=== PATIENT | female | born 1960 | race Caucasian/White ===

== ENCOUNTER 2018-08-14 08:45 | Emergency (ER) | payer MEDICARE ==
[~2018-08-14] VITALS: Ht 170.2 cm; Wt 62.6 kg
[~2018-08-14 08:45] MED LIST: COZAAR50 MG PO; GILENYA0.5 MG PO; IMITREX; PENTAZOCINE-NA1 EACH PO; Z NUVIGIL; Z.0.ABILIFY2 MG PO; Z.0.ADDERALL 10 MG10 PO; Z.0.ADDERALL 20 MG20 PO; Z.0.BENTYL20 MG PO; Z.0.CELEBREX200 MG PO; Z.0.CYMBALTA30 MG PO; Z.0.CYMBALTA60 MG PO; Z.0.DEXILANT60 MG; Z.0.TOPROL XL50 MG PO; Z.0.VALIUM10 MG PO; Z.0.VALTREX1000 MG PO; [UNRECOGNIZED DRUG - OTHER]; [UNRECOGNIZED DRUG - OTHER]; talwin
--- OUTSIDE RECORDS SUMMARY | 2018-08-14 08:50 | XMS REPORT | Continuity of Care Document ---
Author Author Pb nguyenann Organization Interface Address Unknown Phone Unavailable Problems Problem Status Onset Date Classification Date Reported Comments Source M54.5 - LOW BACK PAIN M81.0 - AGE-RELATE Active 12/31/2017 RIP Georges DX: [id number] SCLEROSIS Active 03/08/2017 [place] R07.89 - OTHER CHEST PAIN Active 09/20/2016 [facility] Disseminated sclerosis<sup>2</sup> Resolved 08/29/2016 Problem 03/21/2018 Data migrated from [employer] on 10/03/15. 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 There is no interval worsening since I last saw her.--S he is on Gilenya and is now JCV- Originally documented as Multiple sclerosis. Juanpablo Farnsworth Low back pain<sup>3, 4</sup> Active 08/29/2016 Problem 03/21/2018 Data migrated from [employer] on 10/03/15. Refractory back pain on PM via Dr. Fraga. She is on chronic opiods and previously was treated with ESIs. She is offered a SCS but the MRI restrictions could be a major problem. I discussed this with Dr. Fraga. --Her anorexia has resolved off of HM on MS instead. Originally documented as Lumbar back pain. Juanpablo Farnsworth Neuro Migraine<sup>6</sup> Resolved 08/29/2016 Problem 03/21/2018 Data migrated from [employer] on 10/03/15. Reduced now. Originally documented as Chronic migraine. Juanpablo Farnsworth Disseminated sclerosis<sup>2</sup> Resolved 08/29/2016 Problem 02/02/2018 Data migrated from [employer] on 10/03/15. 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 There is no interval worsening since I last saw her.--S he is on Gilenya and is now JCV- Originally documented as Multiple sclerosis. DONTA Navarrete Low back pain<sup>3, 4</sup> Active 08/29/2016 Problem 02/02/2018 Data migrated from [employer] on 10/03/15. Refractory back pain on PM via Dr. Fraga. She is on chronic opiods and previously was treated with ESIs. She is offered a SCS but the MRI restrictions could be a major problem. I discussed this with Dr. Fraga. --Her anorexia has resolved off of HM on MS instead. Originally documented as Lumbar back pain. DONTA Navarretea Migraine<sup>6</sup> Resolved 08/29/2016 Problem 02/02/2018 Data migrated from [employer] on 10/03/15. Reduced now. Originally documented as Chronic migraine. DONTA Navarrete G35 - MULTIPLE SCLEROSIS Active 06/07/2016 DONTA Garzaadena Medication overuse headache<sup>5</sup> Resolved 11/30/2015 Problem 03/21/2018 Data migrated from [employer] on 10/03/15. The frequent use of imitrex inj. has likely led to overuse headache again. Originally documented as Medication overuse headache. DONTA BIGGSSandeep WilmaLatahanh Neuro Status migrainosus<sup>8, 9</sup> Resolved 11/30/2015 Problem 03/21/2018 Data migrated from [employer] on 10/03/15. Originally documented as Status migrainosus. RIP Bernals[place]ore[place]han[place] Neuro Medication overuse headache<sup>5</sup> Resolved 11/30/2015 Problem 02/02/2018 Data migrated from [employer] on 10/03/15. The frequent use of imitrex inj. has likely led to overuse headache again. Originally documented as Medication overuse headache. DONTA Navarreteadena Status migrainosus<sup>8, 9</sup> Resolved 11/30/2015 Problem 02/02/2018 Data migrated from [employer] on 10/03/15. Originally documented as Status migrainosus. DONTA Navarreteadena Backache<sup>1</sup> Resolved 08/31/2015 Problem 03/21/2018 Data migrated from [employer] on 10/03/15. Refractory back pain on PM via Dr. Fraga. She is on chronic opiods and previously was treated with ESIs. She is offered a SCS but the MRI restrictions could be a major problem. I discussed this with Dr. Fraga. --Overall on the current regimen, she is much improved. Her switch from HM to MS has resolved the anorexia. Originally documented as Low back pain. Juanpablo Farnsworth Neuro Backache<sup>1</sup> Resolved 08/31/2015 Problem 02/02/2018 Data migrated from [employer] on 10/03/15. Refractory back pain on PM via Dr. Fraga. She is on chronic opiods and previously was treated with ESIs. She is offered a SCS but the MRI restrictions could be a major problem. I discussed this with Dr. Fraga. --Overall on the current regimen, she is much improved. Her switch from HM to MS has resolved the anorexia. Originally documented as Low back pain. OPID [place], OPID [place] 789.06; ABD PAIN EPIGASTRIC 787.01; NAUS Active 03/14/2015 [place] Autoimmune hepatitis Resolved 03/16/2014 Problem 03/21/2018 KALYAND Wilma,[facility] Autoimmune hepatitis Resolved 03/16/2014 Problem 02/02/2018 RIP Dillon, [facility] [place] Bursitis of left hip [facility]2018 [facility] [place] Ulcerative colitis Resolved Problem 03/21/2018 [facility] Esophageal reflux Resolved Problem 03/21/2018 [facility] Herpes Resolved Problem 03/21/2018 [facility] Asthma Resolved Problem 03/21/2018 [facility] Neurocognitive deficits Active Problem 03/21/2018 [facility] Depression Resolved Problem 03/21/2018 [facility] Osteoporosis Resolved Problem 03/21/2018 [facility] Pneumonia<sup>7</sup> Resolved Problem 03/21/201809/2016 [facility] Sciatica Resolved Problem 03/21/2018 [facility] Encounter for competency evaluation Active Problem 03/21/2018 [facility] Ulcerative colitis Resolved Problem 02/02/2018 OPID Wilma, [facility] [place] Esophageal reflux Resolved Problem 02/02/2018 OPID M[place], [facility] [place] Herpes Resolved Problem 02/02/2018 OPID [place], [facility] [place] Asthma Resolved Problem 02/02/2018 OPID Mascotte, [facility] [place] Neurocognitive deficits Active Problem 02/02/2018 OPID [place], [facility] [place] Depression Resolved Problem 02/02/2018 OPID [place], [facility] [place] Osteoporosis Resolved Problem 02/02/2018 OPID Mascotte, [facility] [place] Pneumonia<sup>7</sup> Resolved Problem 02/02/201809/2016 OPID [place], [facility] [place] Sciatica Resolved Problem 02/02/2018 KALYAND [place], [facility] [place] Encounter for competency evaluation Active Problem 02/02/2018 KALYAND [place], [facility] [place] Medication overuse headache Active Problem 09/26/2016 Surya Ismael Lumbar back pain Active Problem 09/26/2016 Surya Ismael Status migrainosus Active Problem 09/26/2016 Surya [place] Lumbar back pain Active Problem 09/26/2016 Surya [place] Status migrainosus Active Problem 09/26/2016 Surya Ismael Multiple sclerosis Active Problem 09/26/2016 Surya [place] Chronic migraine Active Problem 09/26/2016 Surya Ismael ABDMNAL PAIN EPIGASTRIC Active [facility] NAUSEA WITH VOMITING Active [facility] ELEV TRANSAMINASE/LDH Active [facility] IRRITABLE BOWEL SYNDROME Active [facility] ABNORMAL LOSS OF WEIGHT Active [facility] DIAPHRAGMATIC HERNIA Active [facility] UNIVRSL ULCERTVE COLITIS Active [facility] Medications Medication Details Route Status Patient Instructions Ordering Provider Order Date Source valacyclovir 1000 MG Oral Tablet [Valtrex] 1 gm=1 tab, PO, Q24H, X 30 day, # 30 tab, 3 Refill(s), Pharmacy: [facility] [id number] Active 11/20/2017 Juanpablo Neuro 0.5 ML Sumatriptan 12 MG/ML Prefilled Syringe [Imitrex] See Instructions, INJECT 0.5ML DIRECTED, # 27 mL, 1 Refill(s), Pharmacy: [facility] [id number] Active 11/20/2017 [facility] 0.5 ML Sumatriptan 12 MG/ML Prefilled Syringe [Imitrex] See Instructions, # 27 mL, INJECT 0.5ML DIRECTED, Pharmacy: [facility] [id number] Inactive 11/20/2017 [facility] 10 ML ocrelizumab 30 MG/ML Injection [Ocrevus] 600 mg, IV, q6mo, # 2 inj, 0 Refill(s), other Active 10/16/2017 [facility] duloxetine 60 MG Enteric Coated Capsule [Cymbalta] 180 mg=3 cap, PO, Daily, 0 Refill(s) Active 10/16/2017 [facility] valacyclovir 1000 MG Oral Tablet [Valtrex] 1 gm=1 tab, PO, Q24H, X 30 day, # 30 tab, 1 Refill(s), Pharmacy: [facility] [id number] No Longer Active 10/02/2017 [facility] Cymbalta PO, Daily, 180mg, 0 Refill(s) Active 08/29/2017 [facility] Reclast Unknown Intravenous Active 5 MG/100ML Intravenous Once a year for osteoporosis [place] 08/28/2016 Surya Ismael Valacyclovir HCl 1 tablet Orally Active 1 GM Orally every 24 hrs [place] 07/15/2016 Surya Ismael Medrol (Sonu) as directed Orally Active 4 mg Orally as directed Ismael 11/30/2015 Surya [place] Spiriva HandiHaler 1 capsule Inhalation Active 18 MCG Inhalation Once a day [place] Surya [place] Adderall XR 1 capsule in the morning Orally Active 30 MG Orally Once a day [place] Surya [place] Morphine Sulfate 2 tablets Orally Active 15 MG Orally twice a day (bid) [place] Surya Ismael Valium 1 tablet as needed Orally Active 5 MG Orally [place] Surya Ismael Gilenya 1 capsule Orally Active 0.5 MG Orally Once a day [place] Surya Ismael Tizanidine HCl 1 tablet Orally Active 2 MG Orally once every night [place] Surya Ismael Imitrex as directed Injection Active 6 MG/0.5ML Injection as needed for headache [place] Surya [place] Testosterone inject Intramuscular Active 100 MG/ML Intramuscular Once every 3 months [place] Surya [place] Linzess 1 capsule Orally Active 290 MCG Orally Once a day Ismael Surya Ismael Dexilant 1 capsule Orally Active 60 MG Orally Twice a day Ismael Surya Ismael Abilify 1 tablet Orally Active 5 MG Orally Once a day [place] Surya [place] Meclizine HCl 1 tablet as needed Orally Active 25 MG Orally as needed (prn) Ismael Surya [place] Asacol HD 2 tablets Orally Active 800 MG Orally Three times a day [place] Surya [place] Cyanocobalamin 1 ml Injection Active 1000 MCG/ML Injection Ismael Surya [place] Dicyclomine HCl 1 tablet Orally Active 20 MG Orally Three times a day [place] Surya Ismael Cymbalta 3 tablets Orally Active 60 MG Orally Once a day Ismael Surya [place] Zofran 1 tablet Orally Active 8 MG Orally As needed Ismael Surya [place] Valacyclovir HCl 1 tablet Orally Active 1 Orally Once a day [place] Surya Ismael Tramadol HCl 1 tablet as needed Orally No Longer Active 50 MG Orally every 4 hrs Ismael Surya Ismael Hydromorphone HCl 1 tablet as needed Orally Active 2 MG Orally every 6 hrs [place] Surya Ismael Sumatriptan Succinate USE DIRECTED NEEDED FOR HEADACHE NA Active 6 Ismael Surya Ismael Testosterone inject Intramuscular Active 100 MG/ML Intramuscular Once every 3 months Ismael Surya [place] Sumatriptan Succinate USE DIRECTED NEEDED FOR HEADACHE NA Active 6 [place] Surya Ismael Fetzima 1 capsule Orally Active 120 MG Orally Once a day [place] Surya [place] Asacol HD 3 tablets Orally Active 800 MG Orally Twice a day Ismael Surya [place] Vitamin D 1 tablet Orally Active 1000 UNIT Orally Once a day [place] Surya Ismael Calcium 1 tablet Orally Active Orally Once a day [place] Surya Ismael Probiotic 1 capsule Orally Active Orally Once a day [place] Surya [place] Valacyclovir HCl Take 1 tablet by mouth every day NA Active 1 GM Ismael Surya Ismael Allergies, Adverse Reactions, Alerts Substance Category Reaction Severity Reaction type Status Date Reported Comments Source codeine<sup>1</sup> Assertion Drug allergy Active 03/24/2013 Data migrated from [employer] on 10/01/16. Originally documented as Codeine Phosphate. RIP [place] Codeine Phosphate Adverse Reaction Info Not Available Adverse Reaction Active 08/29/2016 Surya Ismael Demerol Adverse Reaction Info Not Available Adverse Reaction Active 08/29/2016 Surya Guevara meperidine<sup>2</sup> Assertion Drug allergy Active 08/29/2016 Data migrated from [employer] on 10/01/16. Originally documented as Demerol. DONTA OPISandeep [place] Immunizations Immunization Date Given Site Status Last Updated Comments Source Results Order Name Results Value Reference Range Date Interpretation Comments Source Spine lumbar w/wo contrast MRI Spine lumbar w/wo contrast MRI LUMBAR SPINE MRI WITH AND WITHOUT CONTRAST. Indication:57 years Female M54.5 Low back pain, - M54.5 Low back pain, TECHNIQUE: Sagittal T1, sagittal T2, sagittal STIR and axial T1/T2 images without contrast were obtained. Postcontrast sagittal T1 and axial T1 images were obtained after the administration of 10 cc of Dotarem. Comparison: Plain films 08/21/2017 FINDINGS: From T11-T12 through L4-L5 there are intervertebral disc herniations (Schmorl's nodes) without surrounding T2 hyperintensity. L2-L3 and L3-L4 mild type I (fibrovascular or edematous) endplate changes are noted, without additional signs of infection. The vertebrae are otherwise normal in shape, signal intensity and alignment. The intervertebral disks are diffusely desiccated. The conus medullaris terminates normally at the T12-L1 level. There is no intradural mass lesion. No abnormal epidural or nerve root enhancement seen. Infrarenal abdominal aortic aneurysm measures up to 2.9 cm with the normal infrarenal aortic diameter of 1.6 cm. T12-L1: There is preservation of the disc height, with no bulging, additional herniation, spinal stenosis, or neural foraminal stenosis. L1-L2: Disc height preserved. 2 mm disc bulge asymmetric to the left with mild facet hypertrophy resulting in mild left neural foraminal narrowing. No additional focal disc herniation or significant canal stenosis. L2-L3: There is preservation of the disc height, with no bulging, additional herniation, spinal stenosis, or neural foraminal stenosis. L3-L4: Disc height preserved. 2 mm disc bulge asymmetric to the left with mild facet hypertrophy and ligamentum flavum thickening. No focal disc herniation or significant canal/neural foraminal narrowing. L4-L5: Mild disc height loss. Wide-based subligamentous disc extrusion measuring 7 mm anterior posteriorly and extending 4 mm below the level the disc with superimposed moderate disc bulge and mild facet hypertrophy. This results in [id number] right greater than left neural foraminal narrowing with minimal deformity of the right greater than left L4 nerve roots. Mild lateral recess narrowing bilaterally with minimal displacement of the descending L5 nerve roots. No significant canal stenosis or associated annular tearing. L5-S1: There is preservation of the disc height, with no bulging, herniation, spinal stenosis, or neural foraminal stenosis. IMPRESSION: 1. A 7 mm wide based disc extrusion at L4-L5. Stenoses greatest at L4-L5 including slight deformity of right greater than left L4 foraminal nerve roots and minimal displacement of the descending L5 bilateral nerve roots. 2. Infrarenal abdominal aortic aneurysm measuring up to 2.9 cm. Recommendations for f/u of AAA (abdominal aortic aneurysm) based on AAA size: a. 2.6-2.9 cm: Follow up every 5 years. 1. J Vasc Surg. 2008;50(4 Suppl):S2-49 2. For aortas with maximum diameter of 2.6-2.9 cm meeting the criteria for AAA (>50% of proximal normal segment) 01/30/2018 - - Read by: Ricci Waldron MD Dictated Date/time: 01/30/18 17:45 Electronically Signed by: Ricci Waldron MD 01/30/18 17:56 FINAL REPORT RIP Georges Hip wo contrast MRI Hip wo contrast MRI EXAMINATION: MRI of the left hip without contrast HISTORY: M25.552 Pain in left hip; left hip pain and bursitis; left-sided lumbar radiculopathy; left hip labral tear; lumbar spondylosis; right greater trochanteric bursitis COMPARISON: Radiographs dated 08/21/2017 are reviewed. TECHNIQUE: Multiplanar, multisequence magnetic resonance imaging of the pelvis and left hip was performed with a local coil without contrast. FINDINGS: Left Hip: --Labrum: There is a tear involving the anterosuperior left hip labrum near the 2 o'clock position (series 7, image 18 and series 5, image 15). There is a small cyst adjacent to the anterior aspect of the superolateral left hip labrum which extends superiorly along the lateral margin of the labrum measuring 1.8 x 1.6 x 0.7 cm in craniocaudal, anteroposterior, and mediolateral dimensions respectiv gurwinder (series 7, images 14 through 15 and series 5, images 17 through 20). There is no definite tear of the underlying superolateral labrum identified. The remainder of the left hip labrum is intact. (Anterior labrum is 3 o'clock position by convention). --Cartilage and Bone: There is no chondral defect or subchondral marrow edema along the left femoral head or acetabulum. --Ligaments: The left ligamentum teres is intact. The left hip capsular ligaments are intact. Bone: There is no acute fracture. There is no evidence of avascular necrosis of either hip. The symphysis pubis and sacroiliac joints are normal. Muscles and Tendons: There is mild right common hamstring origin tendinosis. The left common hamstring tendon origin is normal. The tendinous attachments of the left hip are intact and normal. The left hip muscles are normal. Soft Tissues: There is mild right greater trochanteric bursitis. There is no left-sided greater trochanteric bursitis identified. The left sciatic nerve is normal. Contralateral Right Hip: Limited evaluation of the contralateral right hip on large [id number] imaging demonstrates no gross intra-articular abnormality. Other: The uterus is surgically absent. Visualized portions of the pelvis and lower abdomen are otherwise unremarkable. Visualized portions of the lower lumbar spine demonstrate L4-5 degenerative disc disease with intervertebral disc space narrowing, better characterized on dedicated lumbar spine MR dated same day. IMPRESSION: 1. Tear involving the anterosuperior left hip labrum near the 2 o'clock position. 2. Small cyst adjacent to the anterior aspect of the superolateral left hip labrum which extends superiorly along the lateral margin of the labrum with differential including a small ganglion cyst or paralabral cyst with measurements as above, although there is no definite tear of the underlying superolateral labrum identified. 3. No substantial focal left hip chondral defect or subchondral marrow edema. 4. Mild right greater trochanteric bursitis without left-sided greater trochanteric bursitis identified. 5. Mild right common hamstring origin tendinosis. 6. L4-5 degenerative disc disease, better characterized on dedicated lumbar spine MR dated same day. 7. Status post hysterectomy. 01/30/2018 - - Read by: Louie Hollingsworth MD Dictated Date/time: 01/30/18 17:26 Electronically Signed by: Louie Hollingsworth MD 01/30/18 17:41 FINAL REPORT DONTA Georges Foot wo contrast MRI Foot wo contrast MRI EXAMINATION: MRI of the left foot without contrast HISTORY: M79.609 Pain in unspecified limb; chronic dorsal left midfoot pain and swelling; left forefoot arthritis COMPARISON: There are no radiographs available for review. TECHNIQUE: Multiplanar, multisequence magnetic resonance imaging of the left foot is performed with a local coil without contrast. FINDINGS: SOFT TISSUE: MR-compatible marker placed at the site of the patient's pain and swelling corresponds with the dorsal aspect of the proximal second metatarsal shaft. There is no MR correlate for the patient's pain and swelling at this location. The metatarsophalangeal plantar plates are intact. There is no substantial intermetatarsal fluid. There is no Gonzales's neuroma identified. There is no evidence of plantar fascial fibromatosis. The soft tissues including intrinsic musculature of the foot, neurovascular bundles, and tendons of the forefoot appear normal. The Lisfranc ligament is intact. CARTILAGE: There is minimal osteoarthrosis of the first metatarsophalangeal joint with associated minimal chondrosis and small focus of subchondral edema. Otherwise, there is no focal chondrosis or subchondral marrow edema. BONE: Again, there is a small focus of subchondral edema within the first metatarsal head. There is otherwise normal bone marrow signal intensity throughout the visualized foot. Specifically, there is no evidence of fracture, stress fracture, osteonecrosis, or osteomyelitis. IMPRESSION: 1. No MR correlate for the patient's pain and swelling at the site of the MR-compatible marker along the dorsal aspect of the proximal left second metatarsal shaft. 2. Minimal osteoarthrosis of the left first metatarsophalangeal joint with associated minimal chondrosis and small focus of subchondral edema. 3. Otherwise, unremarkable MR examination of the visualized portions of the left foot. 01/30/2018 - - Read by: Louie Hollingsworth MD Dictated Date/time: 01/30/18 17:18 Electronically Signed by: Louie Hollingsworth MD 01/30/18 17:25 FINAL REPORT DONTA Georges Ext Lower Venous Doppler Unilat US Ext Lower Venous Doppler Unilat US EXAM: US LEFT LOWER EXTREMITY VENOUS DOPPLER DATE: 12/17/2017 8:42 AM CDT INDICATION: - M79.609 Pain in unspecified limb, R60.0 Localized edema ADDITIONAL INFORMATION: None. COMPARISON: None. TECHNIQUE: Multiplanar grayscale, color Doppler and spectral Doppler ultrasound of the left lower extremity veins. FINDINGS: Left Thigh Veins: Common Femoral: Patent. Femoral (SFV): Patent. Popliteal: Patent. Proximal Greater Saphenous: Patent. Deep Femoral Veins: Patent. Other: Subcutaneous soft tissue edema in the distal calf and lateral ankle regions. No fluid collection in the visualized soft tissues. IMPRESSION: 1. No deep venous thrombosis (DVT) in the left lower extremity. 2. Diffuse subcutaneous edema in the distal left calf and lateral ankle regions. 12/17/2017 - - Read by: Hussein Hassan MD Dictated Date/time: 12/17/17 09:25 Electronically Signed by: Hussein Hassan MD 12/17/17 09:28 FINAL REPORT [facility] Bone Density DXA [employer] MA Bone Density [employer] MA BONE DENSITY ASSESSMENT: 08/30/2017 CLINICAL DATA: Post menopausal. Age-Related Osteoporosis Without Current Pathological Fracture, Repeated Falls, Low Back Pain, Trochanteric Bursitis, Left Hip , Pain In Left Hip/M81.0, R29.6 , M54.5,M70.62 , M25.552 RISK FACTORS: race. COMPARISON: 06/29/2016 Right hip using a Hologic unit from [facility] with reported medium fracture risk, BMD of 0.683g/cm2, T-score of -2.10, and Z-score of - 1.30. 06/29/2016 Left hip using a Hologic unit from [facility] with reported high fracture risk, BMD of 0.617g/cm2, T-score of -2.70, and Z-score of -1.90. 06/29/2016 AP L1-L4 region of spine using a Hologic unit from [facility] with reported high fracture risk, BMD of 0.735g/cm2, T-score of -2.80, and Z-score of -1.60. FINDINGS: Bone density evaluation was performed 08/30/2017 on the right femur neck using a Hologic unit. The BMD average for the exam is 0.623 g/cm2. The T-score is - 2.00 and the Z-score is -0.80. This matches the World Health Organization's criteria for osteopenia and places the patient at a medium risk for fracture. An additional bone density evaluation was performed 08/30/2017 on the left femur neck using a Hologic unit. The BMD average for the exam is 0.533 g/cm2. The T- score is -2.90 and the Z-score is -1.70. This matches the World Health Organization's criteria for osteoporosis and places the patient at a high risk for fracture. An additional bone density evaluation was performed 08/30/2017 on the right hip using a Hologic unit. The BMD average for the exam is 0.648 g/cm2. The T-score is -2.40 and the Z-score is -1.60. Since the previous similar exam of 06/29/2016, there has been a -0.035 or -5.1% change in the BMD value which represents no significant interval change in bone density. This matches the World Health Organization's criteria for osteopenia and places the patient at a medium risk for fracture. An additional bone density evaluation was performed 08/30/2017 on the left hip using a Hologic unit. The BMD average for the exam is 0.602 g/cm2. The T-score is -2.80 and the Z-score is -1.90. Since the previous similar exam of 06/29/2016, there has been a -0.015 or -2.4% change in the BMD value which represents no significant interval change in bone density. This matches the World Health Organization's criteria for osteoporosis and places the patient at a high risk for fracture. An additional bone density evaluation was performed 08/30/2017 on the AP L1-L4 region of spine using a Hologic unit. The BMD average for the exam is 0.772 g/cm2. The T-score is -2.50 and the Z-score is -1.20. Since the previous similar exam of 06/29/2016, there has been a +0.037 or +5.0% change in the BMD value which represents no significant interval change in bone density. This matches the World Health Organization's criteria for osteoporosis and places the patient at a high risk for fracture. IMPRESSION: OSTEOPOROSIS Patient is at high risk for fracture. This exam was interpreted at [id number] for ISMAEL Wan 15Mayito Stapleton M.D., cm/flori:08/30/2017 11:36:06 Store Host(s): Mima GARCIA(R)(M), [facility] 08/30/2017 - - Read by: Sarath Reed MD Dictated Date/time: 08/30/17 11:36 Electronically Signed by: Sarath Reed MD 08/30/17 11:36 FINAL REPORT [facility] Hip bilat w pelvis and both lat hips DX Hip bilat w pelvis and both lat hips DX EXAM: XR BILATERAL HIP 2 VIEWS DATE: 08/21/2017 12:45 PM FAMILY MANAGER INDICATION: - M81.0 Age-related osteoporosis without current pathological fracture COMPARISON: Bilateral hip radiographs 07/09/2016. TECHNIQUE: 2 views of each hip, including the pelvis FINDINGS: Osteopenia is present. No acute fracture or malalignment is identified. Hip joint spaces are preserved bilaterally. No soft tissue abnormality is identified. IMPRESSION: No acute radiographic abnormality of the bilateral hips. 08/21/2017 - - This report was dictated by a Logging Shovel Operator/Fellow. I have personally reviewed the images as well as the Resident's interpretation and agree with the findings. Read by: Sanket Hardin MD Resident: Sanket Hardin MD Dictated Date/time: 08/21/17 13:51 Electronically Signed by: Can Aparicio MD 08/21/17 17:26 FINAL REPORT [facility] Spine lumbar 2 or 3 views DX Spine lumbar 2 or 3 views DX EXAM: XR LUMBAR SPINE 2 VIEWS DATE: 08/21/2017 12:46 PM FAMILY MANAGER INDICATION: - M81.0 Age-related osteoporosis without current pathological fracture COMPARISON: Chest radiograph 09/20/2016. Chest CT 09/28/2016 TECHNIQUE: AP and lateral radiographs of the lumbar spine FINDINGS: 5 lumbar type, non-rib bearing vertebral bodies are present. Alignment is within normal limits. Osteopenia is present. Unchanged chronic compression deformity of T12, with about 30% loss of height anteriorly. Vertebral body heights are otherwise maintained. There is disc space narrowing, mild marginal osteophyte formation and mild subchondral sclerosis at L4/5. Minimal multilevel facet hypertrophy is also present No soft tissue abnormality is identified. IMPRESSION: 1. Unchanged chronic compression deformity at T12 with about 30% loss of height anteriorly. 2. Moderate spondylosis of L4/5. 08/21/2017 - - This report was dictated by a Logging Shovel Operator/Fellow. I have personally reviewed the images as well as the Resident's interpretation and agree with the findings. Read by: Sanket Hardin MD Resident: Sanket Hardin MD Dictated Date/time: 08/21/17 13:53 Electronically Signed by: Can Aparicio MD 08/21/17 17:26 FINAL REPORT [facility] Brain wo contrast MRI Brain wo contrast MRI Brain wo contrast MRI CLINICAL INDICATION: G35 Multiple sclerosis - Per MRI is a follow up. H/o MS. No contrast was ordered, exam was a add on. Justin; COMPARISON: MRI brain 06/16/2016 TECHNIQUE: Multiplanar imaging of the brain was performed without IV contrast. FINDINGS: BRAIN PARENCHYMA: There is increased T2 signal in the periventricular white matter, corpus callosum, along with several foci of increased T2 signal throughout the deep cerebral white matter. No corresponding increase in signal is noted on the diffusion-weighted sequence. No significant interval change from previous study of 06/16/2016. There is no space-occupying lesion, mass effect or midline shift. No extra-axial fluid collection or acute intraparenchymal hemorrhage. No CP angle mass is visualized. IACs, brainstem and craniocervical junction are unremarkable. VENTRICLES: No ventriculomegaly. The basilar cisterns are normal. Mild cerebral atrophy. VISUALIZED VESSELS: The expected intracranial flow voids are present. SELLA, SKULL BASE AND ORBITS: The visualized orbits and optic chiasm are unremarkable. Pituitary gland demonstrates normal morphology. PARANASAL SINUSES AND MASTOIDS: The visualized paranasal sinuses are clear. There is small amount of fluid in a few of the right mastoid air cells. IMPRESSION: Findings are consistent with patient's history of MS. No foci of restricted diffusion are evident. No significant interval change from previous study of 06/16/2016. SL: [id number] 03/21/2017 - - Read by: Dano Retana MD Dictated Date/time: 03/22/17 07:39 Electronically Signed by: Dano Retana MD 03/22/17 07:56 FINAL REPORT [facility] 3 views DX Ankle 3 views DX EXAM: XR RIGHT ANKLE 3 VIEWS DATE: 02/22/2017 11:43 AM CDT INDICATION: M25.572 Pain in left ankle and joints of left foot COMPARISON: None available TECHNIQUE: AP, oblique and lateral radiographs of the ankle FINDINGS: No acute fracture or malalignment is identified. Joint spaces and bone mineral density are preserved. The ankle mortise is congruent. Lateral soft tissue swelling is present. No radiopaque foreign body or subcutaneous emphysema is identified. IMPRESSION: Lateral soft tissue swelling, without acute bony abnormality is identified. 02/22/2017 - - Read by: Cheryl Olsen MD Dictated Date/time: 02/22/17 13:05 Electronically Signed by: Cheryl Olsen MD 02/22/17 13:07 FINAL REPORT [facility] Chest w contrast CT Chest w contrast CT EXAM: CT CHEST WITH CONTRAST DATE: 09/28/2016 11:11 AM FAMILY MANAGER INDICATION: J98.4 Other disorders of lung COMPARISON: None TECHNIQUE: Volumetric CT acquisition of the chest, following intravenous contrast. Axial, sagittal and coronal reconstructions. Reformatted MIP images were obtained. IV Contrast: 100 mL Omnipaque 300. DLP: 196 mGy-cm FINDINGS: Lines and Tubes: None. Heart and Great Vessels: The aorta and main pulmonary artery measure 3.0 and 1.6 cm. respectively. The cardiothoracic radio measures 8/23. No pericardial effusion is present. Mild coronary artery vascular calcifications present in the left anterior descending. While evaluation is not tailored for pulmonary artery evaluation, no central pulmonary embolus is identified. Routine aortic branching pattern present. Lymph Nodes: There is a precarinal node measuring 0.8 cm with a subcarinal node measuring 0.7 cm. No lymph nodes or enlarged by size criteria. Lungs: No pleural effusion. There is mild biapical scarring with no pneumothorax. Debris is present in the esophagus. Trachea and central bronchi are unremarkable. Scattered groundglass and nodular alveolar opacities are present in the right upper lobe, predominantly involving the posterior segment. There is a 2 mm nodule in the left lower lobe axial image 134. Upper abdomen: No acute findings. Bones and Soft Tissues: Small to moderate compression deformity superior endplate T12 with minimal compression deformity T9. IMPRESSION: 1. Groundglass and nodular airspace opacities in the right upper lobe as above. Findings most consistent with pneumonia. CT follow-up 3 months recommended to document resolution. Given the debris in the esophagus, aspiration not excluded. 2. 2 mm nodule left lower lobe. In a low-risk patient, no CT follow-up necessary. In a high risk patient, one-year CT follow-up recommended. 3. Other findings as above. 09/28/2016 - - Read by: Louie Alexandre MD Dictated Date/time: 09/28/16 12:06 Electronically Signed by: Louie Alexandre MD 09/28/16 12:33 FINAL REPORT [facility] Chest 2 views DX Chest 2 views DX EXAM: XR CHEST 2VIEW DATE: 09/20/2016 10:44 AM FAMILY MANAGER INDICATION: chest pain, cough, COMPARISON: None TECHNIQUE: PA lateral FINDINGS: Hyperinflation of the lung murphy is evident. Slight patient rotation to the right is noted. There is volume loss with ill-defined soft tissue opacity in the right paratracheal region, with mild tracheal shift to the left noted. Underlying mass cannot be excluded. Recommend correlation with CT chest. Biapical pleural fibrosis noted. Heart is normal in size. Dr. Luo notified of above findings at the time of dictation. IMPRESSION: 1. Hyperinflation 2. Ill-defined opacity right upper lobe, with changes of volume loss. Underlying right upper lobe mass cannot be excluded. No previous exams available. Correlate with CT chest. 09/20/2016 - - Read by: Wilmer Turner MD Dictated Date/time: 09/20/16 12:13 Electronically Signed by: Wilmer Turner 09/20/16 14:20 FINAL REPORT [facility] Hip bilat w pelvis and both lat hips DX Hip bilat w pelvis and both lat hips DX Hip bilat w pelvis and both lat hips DX DATE: 07/09/2016 4:11 PM CDT CLINICAL INDICATION: Pain in left hip TECHNIQUE: Frontal view of the pelvis as well as frog-leg view of the hips are obtained and submitted for interpretation. COMPARISON: None. FINDINGS: The bones are moderately osteopenic. There is no fracture or malalignment. No erosive lesion or periosteal reaction is identified. The joint spaces are congruent. The soft tissues are intact. IMPRESSION: No acute injury identified. 07/09/2016 - - Read by: Yelena Churchill MD Dictated Date/time: 07/09/16 16:11 Electronically Signed by: Yelena Churchill MD 07/09/16 16:12 FINAL REPORT [facility] Bone Density DXA [employer] MA Bone Density DXA [employer] MA - Bone Density D[employer] MA BONE DENSITY EVALUATION: 06/29/2016 CLINICAL DATA: Post menopausal. RISK FACTORS: race and cigarette smoking. FINDINGS: Bone density evaluation was performed 06/29/2016 on the AP L1-L4 region of spine using a Hologic unit. The BMD average for the exam is 0.735 g/cm2. The T-score is -2.80 and the Z-score is -1.60. This matches the World Health Organization's criteria for osteoporosis and places the patient at a high risk for fracture. An additional bone density evaluation was performed 06/29/2016 on the right femur neck using a Hologic unit. The BMD average for the exam is 0.606 g/cm2. The T-score is -2.20 and the Z-score is -1.00. This matches the World Health Organization's criteria for osteopenia and places the patient at a medium risk for fracture. An additional bone density evaluation was performed 06/29/2016 on the right hip using a Hologic unit. The BMD average for the exam is 0.683 g/cm2. The T-score is -2.10 and the Z-score is -1.30. This matches the World Health Organization's criteria for osteopenia and places the patient at a medium risk for fracture. An additional bone density evaluation was performed 06/29/2016 on the left femur neck using a Hologic unit. The BMD average for the exam is 0.570 g/cm2. The T- score is -2.50 and the Z-score is -1.40. This matches the World Health Organization's criteria for osteoporosis and places the patient at a high risk for fracture. An additional bone density evaluation was performed 06/29/2016 on the left hip using a Hologic unit. The BMD average for the exam is 0.617 g/cm2. The T-score is -2.70 and the Z-score is -1.90. This matches the World Health Organization's criteria for osteoporosis and places the patient at a high risk for fracture. IMPRESSION: OSTEOPOROSIS Patient is at high risk for fracture. Professional services are provided by the [facility] Division of Diagnostic Imaging. This exam was dictated and interpreted by [id number] for ISMAEL Wan 15. Donnell Stapleton M.D. cm/penrad:07/02/2016 11:47:49 Store Host: Mima Edge RT(R)(M), [facility] 06/29/2016 - - Read by: Sarath Stapleton III, MD Dictated Date/time: 07/02/16 11:47 Electronically Signed by: Sarath tSapleton III, MD 07/02/16 11:47 FINAL REPORT DONTA Georges Digital Mammo Screening Alex MA Digital Mammo Screening Alex MA - DIGITAL MAMMO SCREENING ALEX MA BILATERAL DIGITAL SCREENING MAMMOGRAM WITH CAD: 06/29/2016 CLINICAL: Z12.39 Encounter For Other Screening For Malignant Neoplasm Of Breast. Current study was evaluated with a Computer Aided Detection (CAD) system. Comparison is made to exam dated: 11/27/2011 mammogram - [facility]. There are scattered fibroglandular densities in both breasts. There are benign intramammary nodes in both breasts. There is postsurgical change of the right breast. No significant masses, calcifications, or other findings are seen in either breast. IMPRESSION: BENIGN There is no mammographic evidence of malignancy. A 1 year screening mammogram is recommended. Professional services are provided by the [facility] Division of Diagnostic Imaging. Selam Lisa M.D. rn/:07/02/2016 09:07:01 Store Host: Balbina Mckeon RT(R)(M), [facility] This exam was dictated and interpreted by [id number] for DONTA Joyce. letter sent: Bilateral Benign Mammogram BI-RADS: 2 Benign 06/29/2016 - - Read by: Selam Lisa MD Dictated Date/time: 07/02/16 09:07 Electronically Signed by: Selam Lisa MD 07/02/16 09:07 FINAL REPORT [facility] Brain wo contrast MRI Brain wo contrast MRI Addendum: Report from outside facility magnetic resonance imaging dated 2009 and 04/21/2010 have been made available. Without images, comparison is difficult; however, findings on current examination appear relatively stable compared to the previous reports. EXAM: MRI OF THE BRAIN WITHOUT CONTRAST DATE: 06/16/2016 12:35 PM CDT . CLINICAL HISTORY: G35 Multiple sclerosis COMPARISON: None available. TECHNIQUE : Multiplanar, multisequence imaging of the brain was obtained without contrast. FINDINGS: Restricted diffusion: None T2/FLAIR hyperintense lesions: Diffuse periventricular deep white matter signal abnormality. Additionally, there are approximately 10 distinct lesion in the periventricular white matter. T1 hypointense lesions: 8 lesion spread throughout the supratentorial white matter General comments: There is no hemorrhage, mass lesion, extra axial collection, cerebral edema, or mass effect. Diffusion sequences are normal. There is mild generalized cortical and deep white matter volume loss. There is no cortical signal abnormality. The lateral ventricles, cortical sulci, and basal cisterns are patent. The cerebellar tonsils are above foramen magnum. The pituitary gland is age- appropriate. The vascular flow-voids are unremarkable. The paranasal sinuses, orbits and mastoids are unremarkable. IMPRESSION: 1. White matter changes detailed above in keeping with given history of multiple sclerosis 2. No restricted effusion currently 06/16/2016 - - Read by: Conner Sigala MD Dictated Date/time: 06/18/16 10:12 Electronically Signed by: Conner Sigala MD 06/18/16 10:50 FINAL REPORT - - Read by: Conner Sigala MD Dictated Date/time: 06/16/16 13:37 Electronically Signed by: Conner Sigala MD 06/16/16 15:35 FINAL REPORT [facility] CHEM PANEL A/G Ratio 0.8 0.7 - 1.6 03/16/2015 [facility] CHEM PANEL Globulin 4.1 g/dL 2.0 - 4.0 03/16/2015 [facility] CHEM PANEL Bili Indirect null 0.0 - 1.0 03/16/2015 [facility] CHEM PANEL AST 50 unit/L 0 - 37 03/16/2015 [facility] CHEM PANEL Alk Phos 110 unit/L 39 - 136 03/16/2015 [facility] CHEM PANEL Bili Direct null 0.0 - 0.3 03/16/2015 [facility] CHEM PANEL Bili Total 0.4 mg/dL 0.2 - 1.3 03/16/2015 [facility] CHEM PANEL ALT 52 unit/L 0 - 65 03/16/2015 [facility] CHEM PANEL Total Protein 7.5 g/dL 6.4 - 8.4 03/16/2015 [facility] CHEM PANEL Albumin Lvl 3.4 g/dL 3.5 - 5.0 03/16/2015 [facility] HEMATOLOGY WBC 5.5 K/CMM 3.7 - 10.4 03/16/2015 [facility] HEMATOLOGY RBC 3.39 M/CMM 4.20 - 5.40 03/16/2015 [facility] Hgb 11.4 g/dL 12.0 - 16.0 03/16/2015 [facility] Hct 33.9 % 36.0 - 48.0 03/16/2015 [facility] RDW 15.2 % 11.5 - 14.5 03/16/2015 [facility] Platelet 293 K/CMM 133 - 450 03/16/2015 [facility] MCH 33.7 pg 27.0 - 31.0 03/16/2015 [facility] MCHC 33.7 g/dL 32.0 - 36.0 03/16/2015 [facility] MCV 99.9 fL 80.0 - 98.0 03/16/2015 [facility] MPV 8.4 fL 7.4 - 10.4 03/16/2015 [facility] Sed Rate 40 mm/h 0 - 20 03/16/2015 [facility] Monocytes 12.7 % 2.0 - 12.0 03/16/2015 [facility] Basophils 0.5 % 0.0 - 1.0 03/16/2015 [facility] Eosinophils 0.2 % 0.0 - 4.0 03/16/2015 [facility] Segs-Bands # 4.3 K/CMM 1.5 - 8.1 03/16/2015 [facility] Monocytes # 0.7 K/CMM 0.0 - 0.8 03/16/2015 [facility] Macrocyte 1+ *ABN* (03/16/15 9:22 AM) None Seen 03/16/2015 [facility] Lymphocytes # 0.4 K/CMM 1.0 - 5.5 03/16/2015 [facility] Segs 79.1 % 45.0 - 75.0 03/16/2015 [facility] HEMATOLOGY Lymphocytes 7.5 % 20.0 - 40.0 03/16/2015 [facility] IMMUNOLOGY JOELLEN Negative (03/16/15 9:22 AM) Negative 03/16/2015 [facility] IMMUNOLOGY AMA Ab Scr Negative (03/16/15 9:22 AM) Negative 03/16/2015 [facility] IMMUNOLOGY C-REACTIVE PROTEIN 8.1 mg/L <=2.9 mg/L 03/16/2015 [facility] CHEM PANEL eGFR 83 mL/min/1.73m2 03/16/2015 1Result Comment: The eGFR is calculated using the CKD-EPI formula. In most young, healthy individuals the eGFR will be >90 mL/min/1.73m2. The eGFR declines with age. An eGFR of 60-89 may be normal in some populations, particularly the elderly, for whom the CKD-EPI formula has not been extensively validated. Use of the eGFR is not recommended in the following populations: Individuals with unstable creatinine concentrations, including patients and those with serious co-morbid conditions. Patients with extremes in muscle mass or diet. The data above are obtained from the National Kidney Disease Education Program (NKDEP) which additionally recommends that when the eGFR is used in patients with extremes of body mass index for purposes of drug dosing, the eGFR should be multiplied by the estimated BMI. [facility] CHEM PANEL POC Creatinine 0.8 mg/dL 0.5 - 1.4 03/16/2015 [facility] Abdomen/Pelvis w IV contrast CT Abdomen/Pelvis w IV contrast CT HISTORY: Abdominal pain. CT abdomen and pelvis with IV and oral contrast. No previous for comparison. Visualized lung bases clear. Liver, spleen, pancreas, adrenal glands and kidneys normal. No bowel obstruction or pathologic distention. No free air or pathologic fluid. Appendix not visualized. No evidence for diverticulitis. No pathologic pelvic fluid mass or inflammation. No abdominal aortic aneurysm. No retroperitoneal adenopathy or mass. Previous hysterectomy. Bones appear somewhat osteopenic. Disc bulge or protrusion at L4-L5. IMPRESSION: No specific intra-abdominal or pelvic abnormality. Previous hysterectomy. Lumbar spine disc bulge or protrusion. SL:13 03/16/2015 - - Read by: Rodrigo Rai MD Dictated Date/time: 03/16/15 11:18 Electronically Signed by: Rodrigo Rai MD 03/16/15 11:22 FINAL REPORT [facility] Vital Signs Vital Sign Value Date Comments Source Weight 54.545 03/18/2018 [facility] BMI Calculated 18.83 03/18/2018 [facility] Height 170.18 cm 03/18/2018 [facility] Heart Rate 85 03/18/2018 [facility] Systolic (mm Hg) 104 03/18/2018 [facility] Diastolic (mm Hg) 68 03/18/2018 [facility] Height 170.18 cm 02/25/2018 [facility] Weight 50.364 02/25/2018 [facility] BMI Calculated 17.39 02/25/2018 [facility] Heart Rate 85 02/25/2018 [facility] Systolic (mm Hg) 125 02/25/2018 [facility] Diastolic (mm Hg) 89 02/25/2018 [facility] Weight 59.273 10/16/2017 [facility] BMI Calculated 20.47 10/16/2017 [facility] Height 170.18 cm 10/16/2017 [facility] Systolic (mm Hg) 143 10/16/2017 [facility] Diastolic (mm Hg) 99 10/16/2017 [facility] Heart Rate 84 10/16/2017 [facility] Weight 60.455 08/29/2017 [facility] Systolic (mm Hg) 135 08/29/2017 [facility] Diastolic (mm Hg) 91 08/29/2017 [facility] Heart Rate 67 08/29/2017 [facility] Height 170.18 cm 03/21/2017 [facility] BMI Calculated 19.62 03/21/2017 [facility] Weight 56.818 03/21/2017 [facility] Weight 116.6 08/29/2016 [facility] Height 67 08/29/2016 [facility] Heart Rate 100 08/29/2016 [facility]el Diastolic (mm Hg) 91 08/29/2016 [facility] Systolic (mm Hg) 132 08/29/2016 [facility] Weight 116.2 06/06/2016 [facility] Height 67 06/06/2016 [facility] Ismael Heart Rate 91 06/06/2016 [facility] Diastolic (mm Hg) 96 06/06/2016 S[facility] Ismael Systolic (mm Hg) 125 06/06/2016 [facility]el Weight 116.4 03/06/2016 [facility] Height 67 03/06/2016 [facility] Ismael Heart Rate 81 03/06/2016 [facility] Ismael Diastolic (mm Hg) 97 03/06/2016 [facility] Systolic (mm Hg) 149 03/06/2016 [facility] Is[facility]el Weight 109.8 11/30/2015 [facility] Ismael Height 67 11/30/2015 [facility] Ismael Heart Rate 77 11/30/2015 S[facility] Ismael Diastolic (mm Hg) 87 11/30/2015 [facility] Systolic (mm Hg) 129 11/30/2015 [facility] Ismael Encounters Location Location Details Encounter Type Encounter Number Reason For Visit Attending Provider ADM Date DC Date Status Source Surya Guevara MD, PA 3 month follow up [id number] 11/18/2014 11/18/2014 Surya Guevara MD, PA 3 month follow up [id number] 11/18/2014 11/18/2014 Surya Guevara MD, PA 3 month follow up [id number] 11/18/2014 11/18/2014 Surya Guevara MD, PA 3 month follow up [id number] 11/18/2014 11/18/2014 Surya Guevara MD, PA 3 month follow up [id number] 11/18/2014 11/18/2014 Surya Guevara MD, PA 3 month follow up [id number] 11/18/2014 11/18/2014 Surya Guevara MD, PA 3 month follow up [id number] 11/18/2014 11/18/2014 Surya Guevara MD, PA 3 month follow up [id number] 11/18/2014 11/18/2014 Surya Guevara MD, PA 3 month follow up [id number] 11/18/2014 11/18/2014 Surya Guevara MD, PA 3 month follow up [id number] 11/18/2014 11/18/2014 Surya Guevara MD, PA 3 month follow up [id number] 11/18/2014 11/18/2014 Surya Guevara MD, PA 3 month follow up [id number] 11/18/2014 11/18/2014 Surya Guevara MD, PA 3 month follow up [id number] 11/18/2014 11/18/2014 Surya Guevara MD, PA 3 month follow up [id number] 11/18/2014 11/18/2014 Surya Guevara [facility] [id number] Liu Luo 12/20/2014 [facility]/21[facility] [place] Migraine [id number] 01/12/2015 01/12/2015 Surya Guevara MD, PA Migraine [id number] 01/12/2015 01/12/2015 Surya Guevara MD, PA Migraine [id number] 01/12/2015 01/12/2015 Surya Guevara MD, PA Migraine [id number] 01/12/2015 01/12/2015 Surya Guevara MD, PA Migraine [id number] 01/12/2015 01/12/2015 Surya Guevara MD, [place] Migraine [id number] 01/12/2015 01/12/2015 Surya Guevara MD, PA Migraine [id number] 01/12/2015 01/12/2015 Surya Guevara MD, [place] Migraine [id number] 01/12/2015 01/12/2015 Surya Guevara MD, PA Migraine [id number] 01/12/2015 01/12/2015 Surya Guevara MD, PA Migraine [id number] 01/12/2015 01/12/2015 Surya Guevara MD, [place] Migraine [id number] 01/12/2015 01/12/2015 Surya Guevara MD, PA Migraine [id number] 01/12/2015 01/12/2015 Surya Guevara MD, PA Migraine 6z27w64w-w670-8bi4-sz1q-vv85vw5ox2wr 01/12/2015 01/12/2015 Surya Guevara MD, [place] Migraine g7k2ez94-f9r5-3y98-236p-15283j6v6h66 01/12/2015 01/12/2015 Surya Guevara MD, [place] Medrol rx request [id number] 01/27/2015 01/27/2015 Surya Guevara MD, [place] Medrol rx request [id number] 01/27/2015 01/27/2015 Surya Guevara MD, [place] Medrol rx request [id number] 01/27/2015 01/27/2015 Surya Guevara MD, [place] Medrol rx request [id number] 01/27/2015 01/27/2015 Surya Guevara MD, [place] Medrol rx request [id number] 01/27/2015 01/27/2015 Surya Guevara MD, [place] Medrol rx request [id number] 01/27/2015 01/27/2015 Surya Guevara MD, [place] Medrol rx request [id number] 01/27/2015 01/27/2015 Surya Guevara MD, [place] Medrol rx request [id number] 01/27/2015 01/27/2015 Surya Guevara MD, [place] Medrol rx request [id number] 01/27/2015 01/27/2015 Surya Guevara MD, [place] Medrol rx request [id number] 01/27/2015 01/27/2015 Surya Guevara MD, [place] Medrol rx request [id number] 01/27/2015 01/27/2015 Surya Guevara MD, [place] Medrol rx request [id number] 01/27/2015 01/27/2015 Surya Guevara MD, [place] Medrol rx request [id number] 01/27/2015 01/27/2015 Surya Guevara MD, GISELLE Medrol rx request [id number] 01/27/2015 01/27/2015 Surya Guevara MD, PA 3 mo f/u b36c77gn-0gku-4236-i49i-it5b01s10b04 02/18/2015 02/18/2015 Surya Guevara MD, [place] 3 mo f/u bn441o30-r7a3-46m9-042f-81byz1039061 02/18/2015 02/18/2015 Surya Guevara MD, PA 3 mo f/u 75v2bor4-36p1-6u89-403o-txgl27630ht9 02/18/2015 02/18/2015 Surya Guevara MD, PA 3 mo f/u 5l2673m2-5219-5280-4072-7i5mki72634q 02/18/2015 02/18/2015 Surya Guevara MD, PA 3 mo f/u nt0880td-r769-6107-1e68-7kp4q7f874i3 02/18/2015 02/18/2015 Surya Guevara MD, PA 3 mo f/u [id number]-7f67-ky7xs9929662 02/18/2015 02/18/2015 Surya Guevara MD, PA 3 mo f/u 27m0v962-p2g4-2xs5-x175-001575a3nsnc 02/18/2015 02/18/2015 Surya Guevara MD, PA 3 mo f/u 4147t140-72i5-6vl1-j135-950j5ygv6wr0 02/18/2015 02/18/2015 Surya Guevara MD, PA 3 mo f/u ox806m45-4731-7r78-777y-e5v6q8j40e6o 02/18/2015 02/18/2015 Surya Guevara MD, [facility] 3 mo f/u 81jv14p3-52my-10e6-3e6f-e7i751m4117j 02/18/2015 02/18/2015 Surya Guevara MD, PA 3 mo f/u 1ka29254-c91q-1n49-ll1n-4890v4374178 02/18/2015 02/18/2015 Surya Guevara MD, PA 3 mo f/u r23q53as-648y-91z0-o9e8-494k7hx3z95a 02/18/2015 02/18/2015 Surya Guevara MD, PA 3 mo f/u a86228ml-4148-5396-2614-624cgzr43x30 02/18/2015 02/18/2015 Surya Guevara MD, PA 3 mo f/u 8316blbs-8125-6h406y17-q2s4-3d95w9hzq58z 02/18/2015 02/18/2015 Surya Guevara MD, PA Cycling migraine p9081fnt-9glg-88zn-23uq-q7t6479y8769 03/07/2015 03/07/2015 Surya Guevara MD, PA Cycling migraine h22shi31-97z1-0b08-tc3q-e590ang1z140 03/07/2015 03/07/2015 Surya Guevara MD, PA Cycling migraine 7410943i-l743-6xun-5t74-252681f53173 03/07/2015 03/07/2015 Surya Guevara MD, PA Cycling migraine w8p52v56-7721-5l6v-hy7u-3fjuo1i13e53 03/07/2015 03/07/2015 Surya Guevara MD, PA Cycling migraine u60k7t48-82f4-4b64-e8k5-5g307i49n1z0 03/07/2015 03/07/2015 Surya Guevara MD, PA Cycling migraine 647mmg06-2dpn-0u21-ps64-2q38e4106j5m 03/07/2015 03/07/2015 Surya Guevara MD, PA Cycling migraine 32r12x23-uj15-20eq-0g1f-vih6zed61qvf 03/07/2015 03/07/2015 Surya Guevara MD, PA Cycling migraine ox306q9g-7413-21m8-1r39-720p65d7cl00 03/07/2015 03/07/2015 Surya Guevara MD, PA Cycling migraine zb951597-n6ny-3v09-05tw-493u25n0k7cf 03/07/2015 03/07/2015 Surya Guevara MD, PA Cycling migraine [id number]-54w6968r75v7 03/07/2015 03/07/2015 Surya Guevara MD, PA Cycling migraine 5ow2m447-2ti5-4816-76p0-q9b32p640w6r 03/07/2015 03/07/2015 Surya Guevara MD, PA Cycling migraine 4lf7o0i1-e2ss-2mv0-y8n3-ssn916383789 03/07/2015 03/07/2015 Surya Guevara MD, PA Cycling migraine k94fl2a3-5w9t-7515-oy68-6kc459022j6n 03/07/2015 03/07/2015 Surya Guevara MD, PA Cycling migraine 668do1us-r549-8v9t-5l2a-6n05184049ri 03/07/2015 03/07/2015 Surya Guevara [facility] [phone] Efrain Robin 03/16/2015 03/17/2015 [facility] Surya Guevara MD, [place] 3 mo F/U j42fd92b-444f-0b38-1354-nun6xyv6g229 05/19/2015 05/19/2015 Surya Guevara MD, PA 3 mo F/U k02u0z8p-jk7c-0dhp-8zx4-44803yr92dxm 05/19/2015 05/19/2015 Surya Guevara MD, PA 3 mo F/U p292e14b-1pq6-2ek9-6s3n-6cp19m86l9zv 05/19/2015 05/19/2015 Surya Guevara MD, PA 3 mo F/U aqa53r13-x435-4431-1b38-by73131j4zra 05/19/2015 05/19/2015 Surya Guevara MD, PA 3 mo F/U mk47223e-0812-8f2m-6ee1-733g0x8b368m 05/19/2015 05/19/2015 Surya Guevara MD, PA 3 mo F/U 4r143y27-z6d1-6gr8-e10c-z8232tr52528 05/19/2015 05/19/2015 Surya Guevara MD, PA 3 mo F/U b2vy0748-8vw7-3251-0kqp-905g84x3nrmw 05/19/2015 05/19/2015 Surya Guevara MD, PA 3 mo F/U 432lpr4s-lcu5-7y7x-rr59-nb0rj7248825 05/19/2015 05/19/2015 Surya Guevara MD, PA 3 mo F/U 9u18qr20-15pe-8088-e26z-c6w3dooj7g24 05/19/2015 05/19/2015 Surya Guevara MD, PA 3 mo F/U rd31o162-2346-55i3-8l2q-hkp1d187d9zi 05/19/2015 05/19/2015 Surya Guevara MD, PA 3 mo F/U l0810ep8-07z6-4di2-b5hl-h14v8el29f2j 05/19/2015 05/19/2015 Surya Guevara MD, PA 3 mo F/U g3x3q432-ix0f-6e8k-ry82-u80353107788 05/19/2015 05/19/2015 Surya Guevara MD, PA 3 mo F/U 89431368-lmw1-9908-yvpq-ly689dw57237 05/19/2015 05/19/2015 Surya Guevara MD, [place] 3 mo F/U 88w5mva1-7vf1-6l71-b3tg-axr19wr53078 05/19/2015 05/19/2015 Surya Guevara MD, [place] Unknown 382l4ee5-i638-067k-108s-xg1q7b2m9q89 06/20/2015 06/20/2015 Surya Guevara MD, [place] Unknown 5em4w991-446a-839n-2420-6l961696x94p 06/20/2015 06/20/2015 Surya Guevara MD, [place] Unknown [id number]-o9290132fve9 06/20/2015 06/20/2015 Surya Guevara MD, [place] Unknown [id number]-[id number] 06/20/2015 06/20/2015 Surya Guevara MD, [place] Unknown [id number] 06/20/2015 06/20/2015 Surya Guevara MD, [place] Unknown rcp23vr2-[id number]-s322-335j19y06s2h 06/20/2015 06/20/2015 Surya Guevara MD, [place] Unknown [id number]-u3nf-8611g72t69zg 06/20/2015 06/20/2015 Surya Guevara MD, [place] Unknown [id number] 06/20/2015 06/20/2015 Surya Guevara MD, [place] Unknown [id number]-x464l986c21d 06/20/2015 06/20/2015 Surya Guevara MD, [place] Unknown [id number] 06/20/2015 06/20/2015 Surya Guevara MD, [place] Unknown [id number] 06/20/2015 06/20/2015 Surya Guevara MD, [place] Unknown [id number]-4710-ah2n-09h20260e38d 06/20/2015 06/20/2015 S[place] Unknown [id number] 06/20/2015 06/20/2015 Surya Guevara MD, [place] Unknown [id number]-2986-at2r-0421ot897i79 06/20/2015 06/20/2015 Surya Guevara MD, [place] Imitrex 3qkc9537-9pid-6642-t142-097c68woysxu 06/29/2015 06/29/2015 Surya Guevara MD, [place] Imitrex 2d5aw8us-78w0-2q39-6n2q-93tqg043z3q4 06/29/2015 06/29/2015 Surya Guevara MD, PA Imitrex xwyhb4f2-12h4-47l8-h6c8-9412o189k47z 06/29/2015 06/29/2015 Surya Guevara MD, [place] Imitrex 624zjiu1-e01n-6e5u-i416-0151r71i884g 06/29/2015 06/29/2015 Surya Guevara MD, PA Imitrex 6m17h1lm-te35-6i0m-c10w-29klz8m67j80 06/29/2015 06/29/2015 Surya Guevara MD, GISELLE Imitrex 8y1t7xk5-3532-1q18-vx6c-ym68246032hw 06/29/2015 06/29/2015 Surya Guevara MD, PA Imitrex 9yps6t50-34l1-1773-y6q7-78n1w6k27fow 06/29/2015 06/29/2015 Surya Guevara MD, [place] Imitrex [id number]-eq91-503q3l8808z8 06/29/2015 06/29/2015 Surya Guevara MD, [place] Imitrex 23j343b9-8812-83x0-02be-618p25pmaoj4 06/29/2015 06/29/2015 Surya Guevara MD, PA Imitrex 7el664x0-xt47-3186-5cb1-8785l20h97v6 06/29/2015 06/29/2015 Surya Guevara MD, PA Imitrex 2556o53n-905y-945g-mo8l-wu11m2212504 06/29/2015 06/29/2015 Surya Guevara MD, GISELLE Imitrex 4hqhv9ri-5j75-6h48-h9i9-665y310046dp 06/29/2015 06/29/2015 Surya Guevara MD, PA Imitrex korf680k-1418-09gw-6wj8-4u3ggx491b7o 06/29/2015 06/29/2015 Surya Guevara MD, PA Imitrex hm14e344-v1b4-75d7-s5h0-5w006a43051d 06/29/2015 06/29/2015 Surya Guevara MD, GISELLE DESAI Req 3p154724-k8w3-7t5d-3039-7144q7228t7x 07/20/2015 07/20/2015 Surya Guevara MD, GISELLE DESAI Req 3348p5fz-8980-70g6-6945-q209875867a5 07/20/2015 07/20/2015 Surya Guevara MD, GISELLE DESAI Req 7u3iw153-9kwt-9h08-q070-y19687x7d36z 07/20/2015 07/20/2015 Surya Guevara MD, GISELLE DESAI Req 5gsd03a9-sz17-49dq-v385-em1mz5709813 07/20/2015 07/20/2015 Surya Guevara MD, GISELLE DESAI Req 9lcr0t31-v23u-4j59-0597-v545902hej5e 07/20/2015 07/20/2015 Surya Guevara MD, GISELLE DESAI Req 12x7wk08-0o9w-3274-j112-v09at5492926 07/20/2015 07/20/2015 Surya Guevara MD, GISELLE DESAI Req 9ot4va01-o2jq-7x3l-6yll-p4510j43mx12 07/20/2015 07/20/2015 Surya Guevara MD, GISELLE DESAI Req 7e32u4w2-k1v3-371d-154p-h4046kiw1s4u 07/20/2015 07/20/2015 Surya Guevara MD, GISELLE DESAI Req [id number]-b9h8-8128a9smo2ba 07/20/2015 07/20/2015 Surya Guevara MD, GISELLE DESAI Req vqu2c455-9975-4970-qc5s-281785n408i4 07/20/2015 07/20/2015 Surya Guevara MD, GISELLE DESAI Req 7c2590p3-10y1-29uv-h7qs-h118qr2j8l7l 07/20/2015 07/20/2015 Surya Guevara MD, GISELLE DESAI Req g09696l3-3457-5z07-s76o-10m341dx0569 07/20/2015 07/20/2015 Surya Guevara MD, GISELLE DESAI Req 1v9794d9-aep1-8gsi-jau0-1n97ho405s1q 07/20/2015 07/20/2015 Surya Guevara MD, GISELLE DESAI Req t8992nau-be62-8oxn-09pf-9g17c49d3ae9 07/20/2015 07/20/2015 Surya Guevara MD, [facility] 3 month f/u 130lk0f4-59bc-07rn-x375-dp85b7642183 08/31/2015 08/31/2015 Surya Guevara MD, [facility] 3 month f/u 4i65u455-7d32-10x8-95x4-17zeb97y39t5 08/31/2015 08/31/2015 Surya Guevara MD, [place] 3 month f/u 18rw1c7t-5716-3g80-3905-wo081875xa73 08/31/2015 08/31/2015 Surya Guevara MD, PA 3 month f/u 9986302h-6492-02uv-6211-0372472ikoh3 08/31/2015 08/31/2015 Surya Guevara MD, PA 3 month f/u 6128s889-108u-21x7-61ga-3998yy607549 08/31/2015 08/31/2015 Surya Guevara MD, [place] 3 month f/u j53s87kg-gswa-3049-w2o5-w50s1658g2oh 08/31/2015 08/31/2015 Surya Guevara MD, [facility] 3 month f/u 0545456f-4ty8-41xh-w117-602865eq86jl 08/31/2015 08/31/2015 Surya Guevara MD, PA 3 month f/u 91pme54e-86z4-6601-s1ev-794124e2548c 08/31/2015 08/31/2015 Surya Guevara MD, PA 3 month f/u 54242x17-rc0s-1b07-n85x-m916tr84mk07 08/31/2015 08/31/2015 Surya Guevara MD, PA 3 month f/u wp69js6n-b40c-683h-800n-3r8498xua550 08/31/2015 08/31/2015 Surya Guevara MD, PA 3 month f/u 65clvsrc-e00k-77s4u06p-12y0-91w5-8ly121u907k8 08/31/2015 08/31/2015 Surya Guevara MD, PA 3 month f/u 35n1699k-786z-18u3-h591-mv9d360ra1g8 08/31/2015 08/31/2015 Surya Guevara MD, PA 3 month f/u 7vt77263-r15e-3v8m-55f9-a30b02888631 08/31/2015 08/31/2015 Surya Guevara MD, PA 3 month f/u 398ro986-9l56-578m-418c-652jj80a2770 08/31/2015 08/31/2015 Surya Guevara MD, GISELLE Leon Refill 7064s40n-5k3y-635h-a892-u52bncs917mn 09/26/2015 09/26/2015 Surya Guevara MD, GISELLE Leon Refill qix7g0h4-neg9-768u-0038-4493u6542892 09/26/2015 09/26/2015 Surya Guevara MD, GISELLE Leon Refill 2qtm3072-x211-2m50-j56z-6b53zjly6224 09/26/2015 09/26/2015 Surya Guevara MD, GISELLE Leon Refill 4j68986c-f8nm-90dq-4h87-7761csa74839 09/26/2015 09/26/2015 Surya Guevara MD, GISELLE Leon Refill ef501687-1jj0-4knb-4423-g28xn893256t 09/26/2015 09/26/2015 Surya Guevara MD, GISELLE Leon Refill [id number]-46xc-2e1k-s571-462tf500y9c8 09/26/2015 09/26/2015 Surya Guevara MD, GISELLE Leon Refill [id number]sa2 09/26/2015 09/26/2015 Surya Guevara MD, GISELLE Leon Refill [id number] 09/26/2015 09/26/2015 Surya Guevara MD, GISELLE Leon Refill l00yu900-v2bt-8s5c-r4p0-3l1579h7ly37 09/26/2015 09/26/2015 Surya Guevara MD, GISELLE Leon Refill [id number]-v2d1-frt3ky308u4c 09/26/2015 09/26/2015 Surya Guevara MD, GISELLE Leon Refill 432814v0-0250-8zi6-wh10-j1o3m5aqt4df 09/26/2015 09/26/2015 Surya Guevara MD, GISELLE Leon Refill fz9g197u-54rh-52c4-236f-j91t36ob0ocq 09/26/2015 09/26/2015 Surya Guevara MD, GISELLE Leon Refill 0229k297-x1h0-0766-a7d0-6979j028814j 09/26/2015 09/26/2015 Surya Guevara MD, GISELLE Leon Refill c04i2306-u9lh-49x6-tfg2-87i18158bx6h 09/26/2015 09/26/2015 Surya Guevara MD, [facility] 3 month f/u jh39o13l-99qf-046n-qn05-7n3up67687aa 11/30/2015 11/30/2015 Surya Guevara MD, [facility] 3 month f/u pkx352o3-083t-0890-679t-yr6lwj4sk2jn 11/30/2015 11/30/2015 Surya Guevara MD, [facility] 3 month f/u 579xz420-064d-9753-5s1k-y3j85204w411 11/30/2015 11/30/2015 Surya Guevara MD, [facility] 3 month f/u 3vko60bf-6wj7-5972-c40b-9t1uso6137t8 11/30/2015 11/30/2015 Surya Guevara MD, [facility] 3 month f/u 017s215o-07f2-8s4f-u16o-qn8790769452 11/30/2015 11/30/2015 Surya Guevara MD, [facility] 3 month f/u 18xq3005-3jxd-202l-ve52-3tk6m3w698yo 11/30/2015 11/30/2015 Surya Guevara MD, [facility] 3 month f/u 9sg2h113-986k-9gn8-8vy1-6145p3sn14wn 11/30/2015 11/30/2015 Surya Guevraa MD, [place] 3 month f/u 6595sq49-d874-54c2-7f9m-x2e2o449mt5g 11/30/2015 11/30/2015 Surya Guevara MD, [facility] 3 month f/u f573sj69-y0w6-98m3-604z-uqiiols943qt 11/30/2015 11/30/2015 Surya Guevara MD, [facility] 3 month f/u p4q0n0gs-p4zs-3q47-52r4-64246e9305k1 11/30/2015 11/30/2015 Surya Guevara MD, [facility] 3 month f/u 588p5q3r-77nx-9gv0-7yg6-639vrs3a46a9 11/30/2015 11/30/2015 Surya Guevara MD, [facility] 3 month f/u w45d4k7w-xe57-5918-2452-631666qbx37l 11/30/2015 11/30/2015 Surya Guevara MD, PA 3 month f/u cl643521-73wi-7900-lh50-u4z46765869z 11/30/2015 11/30/2015 Surya Guevara MD, [facility] 3 month f/u 981vc747-9v0c-43kk-9ho2-xpn96744z118 11/30/2015 11/30/2015 Surya Guevara MD, [place] Other 13wy98yn-j3g3-9042-3h40-580il93491u2 12/06/2015 12/06/2015 Surya Guevara MD, [place] Other 1d7gp6ri-use6-8366-f3a4-2m721vq7rb61 12/06/2015 12/06/2015 Surya Guevara MD, [place] Other zs171913-ek98-2rt2-908x-d3653h61g172 12/06/2015 12/06/2015 Surya Guevara MD, [place] Other 11nt955y-42w0-35r1-2291-v2e316v21c37 12/06/2015 12/06/2015 Surya Guevara MD, [place] Other 318ja4v8-u79i-706d-0800-h30sn7683k60 12/06/2015 12/06/2015 Surya Guevara MD, [place] Other s149a4k7-9571-6938-a57e-2298j8407pa8 12/06/2015 12/06/2015 Surya Guevara MD, [place] Other ulha4348-1662-4jl6-7q32-2ge4d9x1ri2r 12/06/2015 12/06/2015 Surya Guevara MD, [place] Other 1690ub15-g95j-458u-1u61-9q94jx2hasmg 12/06/2015 12/06/2015 Surya Guevara MD, [place] Other nfah0jtv-6py4-8l09-f692-ywhm3w80q6j7 12/06/2015 12/06/2015 Surya Guevara MD, [place] Other [id number]-4525-o4b1-a5s1j15147o9 12/06/2015 12/06/2015 Surya Guevara MD, [place] Other 01x79037-u64l-4379-7434-2e55as80y247 12/06/2015 12/06/2015 Surya Guevara MD, [place] Other w6zo3e24-w2g5-125k-z6l7-k49rvz000epn 12/06/2015 12/06/2015 Surya Ismael Guevara MD, [place] Other b31n5e2h-882j-5512-awca-wr8n54ove881 12/06/2015 12/06/2015 Surya Guevara MD, GISELLE Zamarripa 2e5g873i-6o14-53f4-o349-2560zn893842 12/19/2015 12/19/2015 Surya Ismael Guevara MD, GISELLE Zamarripa 7m959vmf-81e1-4a8y-1668-7h4fnd1npqy2 12/19/2015 12/19/2015 Surya Guevara MD, GISELLE Zamarripa 0z55j775-7i9q-669d-511d-2743941t9y4s 12/19/2015 12/19/2015 Surya Guevara MD, GISELLE Zamarripa p4fn5262-s061-7xn0-j318-5b662l664346 12/19/2015 12/19/2015 Surya Guevara MD, GISELLE Zamarripa 6j97869y-1tq9-44f7-63g5-2768y0t998lp 12/19/2015 12/19/2015 Surya Guevara MD, GISELLE Zamarripa 7j52ppn6-7a23-7sq4-ti02-1ero6yg9tn43 12/19/2015 12/19/2015 Surya Guevara MD, GISELLE Zamarripa 0970f513-4wf5-7bu6-g2b0-wlqk0227q5j9 12/19/2015 12/19/2015 Surya Guevara MD, GISELLE Zamarripa 99vc4539-i85a-77u6-1smo-u43jv46ubn5f 12/19/2015 12/19/2015 Surya Guevara MD, GISELLE Zamarripa 51gnijn4-2rd6-9z9c-[id number] 12/19/2015 12/19/2015 Surya Guevara MD, GISELLE Zamarripa [id number] 12/19/2015 12/19/2015 Surya Guevara MD, GISELLE Zamarripa [id number] 12/19/2015 12/19/2015 Surya Guevara MD, GISELLE Zamarripa [id number] 12/19/2015 12/19/2015 Surya Guevara MD, GISELLE Valacyclovir [id number] 01/17/2016 01/17/2016 Surya Guevara MD, GISELLE Valacyclovir [id number] 01/17/2016 01/17/2016 Surya Guevara MD, GISELLE Valacyclovir [id number] 01/17/2016 01/17/2016 Surya Guevara MD, GISELLE Valacyclovir [id number] 01/17/2016 01/17/2016 Surya Guevara MD, GISELLE Valacyclovir [id number] 01/17/2016 01/17/2016 Surya Guevara MD, GISELLE Valacyclovir [id number] 01/17/2016 01/17/2016 Surya Guevara MD, GISELLE Valacyclovir [id number] 01/17/2016 01/17/2016 Surya Guevara MD, GISELLE Valacyclovir [id number] 01/17/2016 01/17/2016 Surya Guevara MD, GISELLE Valacyclovir [id number] 01/17/2016 01/17/2016 Surya Guevara MD, GISELLE Valacyclovir [id number] 01/17/2016 01/17/2016 Surya Guevara MD, GISELLE Valacyclovir [id number] 01/17/2016 01/17/2016 Surya Guevara MD, [place] [facility] [place] [id number] 01/24/2016 01/24/2016 Surya Guevara MD, PA [facility] [place] [id number] 01/24/2016 01/24/2016 Surya Guevara MD, PA [facility] [place] [id number] 01/24/2016 01/24/2016 Surya Guevara MD, [place] Migraine [id number] 01/24/2016 01/24/2016 Surya Guevara MD, [place] Migraine [id number] 01/24/2016 01/24/2016 Surya Guevara MD, [place] Migraine [id number] 01/24/2016 01/24/2016 Surya Ismael Guevara MD, PA Migraine [id number] 01/24/2016 01/24/2016 Surya Guevara MD, [place] Migraine [id number] 01/24/2016 01/24/2016 Surya Guevara MD, [place] Migraine [id number] 01/24/2016 01/24/2016 Surya Guevara MD, [place] Migraine [id number] 01/24/2016 01/24/2016 Surya Guevara MD, [place] Other [id number] 01/30/2016 01/30/2016 Surya Guevara MD, [place] Other [id number] 01/30/2016 01/30/2016 Surya Guevara MD, [place] Other [id number] 01/30/2016 01/30/2016 Surya Guevara MD, [place] Other [id number] 01/30/2016 01/30/2016 Surya Guevara MD, [place] Other [id number] 01/30/2016 01/30/2016 Surya Guevara MD, [place] Other [id number] 01/30/2016 01/30/2016 Surya Guevara MD, [place] Other [id number] 01/30/2016 01/30/2016 Surya Guevara MD, [place] Other [id number] 01/30/2016 01/30/2016 Surya Guevara MD, [place] Other [id number] 01/30/2016 01/30/2016 Surya Guevara [facility] [id number] SURYA GUEVARA 03/06/2016 [facility] 3 month f/u [id number] 03/06/2016 03/06/2016 Surya Guevara MD, PA 3 month f/u [id number] 03/06/2016 03/06/2016 Surya Guevara MD, PA 3 month f/u [id number] 03/06/2016 03/06/2016 Surya Guevara MD, PA 3 month f/u [id number] 03/06/2016 03/06/2016 Surya Guevara MD, PA 3 month f/u [id number] 03/06/2016 03/06/2016 Surya Guevara MD, PA 3 month f/u [id number] 03/06/2016 03/06/2016 Surya Guevara MD, PA 3 month f/u [id number] 03/06/2016 03/06/2016 Surya Guevara MD, PA 3 month f/u [id number] 03/06/2016 03/06/2016 Surya Guevara MD, [place] Brand/Generic Sumatriptan [id number] 05/15/2016 05/15/2016 Surya Guevara MD, [place] Brand/Generic Sumatriptan [id number] 05/15/2016 05/15/2016 Surya Guevara MD, [place] Brand/Generic Sumatriptan [id number] 05/15/2016 05/15/2016 Surya Guevara MD, PA Brand/Generic Sumatriptan [id number] 05/15/2016 05/15/2016 Surya Guevara MD, PA Brand/Generic Sumatriptan [id number] 05/15/2016 05/15/2016 Surya Guevara MD, PA Brand/Generic Sumatriptan [id number] 05/15/2016 05/15/2016 Surya Guevara MD, PA Brand/Generic Sumatriptan [id number] 05/15/2016 05/15/2016 Surya Guevara MD, [place] Migraine [id number] 06/05/2016 06/05/2016 Surya Guevara MD, [place] Migraine [id number] 06/05/2016 06/05/2016 Surya Guevara MD, [place] Migraine [id number] 06/05/2016 06/05/2016 Surya Guevara MD, PA Migraine [id number] 06/05/2016 06/05/2016 Surya Guevara MD, PA Migraine [id number] 06/05/2016 06/05/2016 Surya Guevara MD, [place] Migraine [id number] 06/05/2016 06/05/2016 Surya Guevara Outpatient [id number] SURYA GUEVARA 06/06/2016 Active [facility] Guevara MD, PA 3 month f/u [id number] 06/06/2016 06/06/2016 Surya Guevara MD, PA 3 month f/u [id number] 06/06/2016 06/06/2016 Surya Guevara MD, PA 3 month f/u [id number] 06/06/2016 06/06/2016 Surya Guevara MD, PA 3 month f/u [id number] 06/06/2016 06/06/2016 Surya Guevara MD, [place] 3 month f/u [id number] 06/06/2016 06/06/2016 Surya Guevara MD, [place] Dr. Owens [id number] 06/13/2016 06/13/2016 Surya Guevara MD, [place] Dr. Owens [id number] 06/13/2016 06/13/2016 Surya Guevara MD, [place] Dr. Owens [id number] 06/13/2016 06/13/2016 Surya Guevara MD, [place] Dr. Owens [id number] 06/13/2016 06/13/2016 Surya Guevara [facility] [place] [facility] [id number] Surya Guevara 06/16/2016 06/17/2016 [facility] [place] [facility] [place] [facility] [id number] Liu Luo 06/29/2016 06/30/2016 [facility] [place] [facility] [place] [facility] [id number] Liu Luo 07/09/2016 07/10/2016 MH OPID [place] Outpatient [id number] SURYA GUEVARA 08/29/2016 Active [facility] Guevara MD, PA 3 month f/u [id number] 08/29/2016 08/29/2016 Surya Guevara MD, PA 3 month f/u [id number] 08/29/2016 08/29/2016 Surya Guevara MD, [place] 3 month f/u [id number] 08/29/2016 08/29/2016 Surya Guevara MD, [place] Migraine [id number] 09/04/2016 09/04/2016 Surya Guevara MD, GISELLE Migraine [id number] 09/04/2016 09/04/2016 Surya Guevara [facility] [place] [facility] [id number] Liu Luo 09/20/2016 09/21/2016 MH OP[facility] [place] Surya Guevara MD, GISELLE Pluracy [id number] 09/25/2016 09/25/2016 Surya Guevara [facility] [place] [facility] [id number] Liu Luo 09/28/2016 09/29/2016 MH OPID [place] Outpatient [id number] SURYA CARMICHAELUM 11/29/2016 Active [facility] [place] [facility] [id number] [facility]2017 02/23/2017 MH OPID [place] Outpatient [id number] SURYA ISMAEL 03/07/2017 Active [facility] Outpatient [id number] SURYA ISMAEL 03/21/2017 [facility] Outpatient [id number] Surya Ismael 03/21/2017 03/22/2017 [facility] Outpatient [id number] SURYA ISMAEL 04/10/2017 Active [facility] [place] [facility] [id number] [facility] 08/21/2017 08/22/2017 OP[facility] Neurology [facility] Phone Message [id number] 08/23/2017 08/25/2017 [facility] Outpatient [id number] SURYA ISMAEL 08/29/2017 Active [facility] Neurology [facility] Outpatient [id number] Surya [place] 08/29/2017 08/30/2017 [facility] [facility] [place] [facility] [id number] [facility] 08/30/2017 08/31/2017 [facility] [place] [facility] Phone Message [id number] 09/19/2017 09/21/2017 [facility] Phone Message [id number] 09/27/2017 09/29/2017 [facility] Phone Message [id number] 10/02/2017 10/04/2017 [facility] [id number] [facility] 10/09/2017 [facility] Phone Message [id number] 10/15/2017 10/17/2017 [facility] [id number] [facility] 10/16/2017 [facility] [place] [facility] Outpatient [id number] [facility] 10/16/2017 10/17/2017 [facility] Phone Message [id number] 10/18/2017 10/20/2017 [facility] Phone Message [id number] 11/19/2017 11/21/2017 [facility] Phone Message [id number] 11/20/2017 11/22/2017 [facility] Phone Message [id number] 11/22/2017 11/24/2017 [facility] Phone Message [id number] 01/16/2018 01/18/2018 [facility] [place] [facility] [id number] Liu Luo 01/30/2018 01/31/2018 [facility] [place] [facility] Phone Message [id number] 02/05/2018 02/07/2018 [facility] [id number] [facility] 02/25/2018 [facility] [place] [facility] Outpatient [id number] [facility] 02/25/2018 02/26/2018 [facility] Phone Message [id number] 02/26/2018 02/28/2018 [facility] [id number] [facility] 03/18/2018 [facility] [place] [facility] [id number] Liu Luo 03/18/2018 03/19/2018 [facility] [id number] SURYA CARMICHAELUM 04/09/2018 [facility] [id number] [facility] CIFUENTESH 04/15/2018 [facility] [place] [facility] [id number] SURYA CARMICHAELUM 04/22/2018 [facility] [id number] SURYA CARMICHAELUM 07/02/2018 [facility] [id number] SURYA CARMICHAELUM 08/13/2018 [facility] Procedures Procedure Code Date Perfomer Comments Source Laminectomy<sup>1</sup> [id number] 09/16/1998 back [facility] [place] Laminectomy<sup>1</sup> [id number] 09/16/1998 back [facility] Laminectomy<sup>1</sup> [id number] 09/16/1998 back [facility] [place] Laminectomy<sup>1</sup> [id number] 09/16/1998 [facility] Caesarean section [id number] 06/16/1986 [facility] [place] Caesarean section [id number] 06/16/1986 [facility] [id number] 06/16/1986 [facility] [place] Caesarean section [id number] 06/16/1986 [facility] Appendectomy [id number] 09/16/1979 [facility] [place] Appendectomy [id number] 09/16/1979 [facility] App[facility] [id number] 09/16/1979 [facility] [place] Appendectomy [id number] 09/16/1979 [facility] Hysterectomy [id number] [facility] [place] Hysterectomy [id number] [facility] Hysterectomy [id number] [facility] [place] Hysterectomy [id number] [facility]
--- OUTSIDE RECORDS SUMMARY | 2018-08-14 08:51 | XMS REPORT | Summary of Care ---
Author Author [facility] Organization [facility] Address Unknown Phone Unavailable Encounter HQ Surinder(FIN) [id number] Date(s): 10/18/17 - 10/19/17 [facility] [address] [place] [phone] Vital Signs No data available for this section Problem List Condition Effective Dates Status Health Status Informant Autoimmune < 03/16/14 Resolved hepatitis(Confirmed) Backache(Confirmed)1 08/31/15 Resolved Bursitis of left Active hip(Confirmed) Ulcerative Resolved colitis(Confirmed) Disseminated 08/29/16 Resolved sclerosis(Confirmed) 2 Esophageal Resolved reflux(Confirmed) Herpes(Confirmed) Resolved Asthma(Confirmed) Resolved Neurocognitive Active deficits(Confirmed) Low back 08/29/16 Active pain(Confirmed)3, 4 Medication overuse 11/30/15 Resolved headache(Confirmed)5 Migraine(Confirmed)6 08/29/16 Resolved Depression(Confirmed Resolved ) Osteoporosis(Confirm Resolved ed) Pneumonia(Confirmed) Resolved 7 Sciatica(Confirmed) Resolved Encounter for Active competency evaluation(Confirmed ) Status 11/30/15 Resolved migrainosus(Confirme d)8, 9 1Data migrated from [employer] on 10/03/15. Refractory back pain on PM [...] anorexia. Originally documented as Low back pain. 2Data migrated from [employer] on 10/03/15. 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 There is no interval worsening since I last saw her.--She is on Gilenya and is now JCV- Originally documented as Multiple sclerosis. 3Data migrated from [employer] on 10/03/15. Currently doing well. But no longer under PM care. Originally documented as Lumbar back pain. 4Data migrated from [employer] on 10/03/15. Refractory back pain on PM via Dr. Fraga. She is on chronic opiods and previously was treated with ESIs. She is offered a SCS but the MRI restrictions could be a major problem. I discussed this with Dr. Fraga. --Her anorexia has resolved off of HM on MS instead. Originally documented as Lumbar back pain. 5Data migrated from [employer] on 10/03/15. The frequent use of imitrex inj. has likely led to overuse headache again. Originally documented as Medication overuse headache. 6Data migrated from [employer] on 10/03/15. Reduced now. Originally documented as Chronic migraine. 8Data migrated from [employer] on 10/03/15. Again. We will bridge therapy stopping imitrex then treat with DHE migraine protocol. She may not use the injections within 24 hours of DHE treatment and then would do best to minimize the headache treatment to 1/week. Originally documented as Status migrainosus. 9Data migrated from [employer] on 10/03/15. Originally documented as Status migrainosus. Allergies, Adverse Reactions, Alerts Substance Reaction Severity Status codeine1 Active meperidine2 Active 1Data migrated from [employer] on 10/01/16. Originally documented as Codeine Phosphate. 2Data migrated from [employer] on 10/01/16. Originally documented as Demerol. Medications No data available for this section Results No data available for this section Immunizations No data available for this section Procedures Procedure Date Related Diagnosis Body Site Status Laminectomy1 1998 Completed Caesarean section 06/16/86 Completed Appendectomy 1979 Completed Hysterectomy Completed 1back Social History Social History Type Response Substance Abuse Use: None. Employment/School Status: Unemployed. Highest education level: Some college. Alcohol Never Smoking Status Current some day smoker; Exposure to Tobacco Smoke current smoker; Cigarette Smoking Last 365 Days Yes; Reg Smoking Cessation Counseling No entered on: 10/15/17 Assessment and Plan No data available for this section
--- OUTSIDE RECORDS SUMMARY | 2018-08-14 08:51 | XMS REPORT | Summary of Care ---
Author Author [facility] Address Unknown Phone Unavailable Encounter HQ Surinder(FIN) [id number] Date(s): 08/23/17 - 08/24/17 [facility] [address] [place] [phone] Vital Signs No data available for this section Problem List Condition Effective Dates Status Health Status Informant Autoimmune < 03/16/14 Resolved hepatitis(Confirmed) Backache(Confirmed)1 08/31/15 Resolved Ulcerative Resolved colitis(Confirmed) Disseminated 08/29/16 Resolved sclerosis(Confirmed) 2 Esophageal Resolved reflux(Confirmed) Herpes(Confirmed) Resolved Asthma(Confirmed) Resolved Neurocognitive Active deficits(Confirmed) Low back 08/29/16 Active pain(Confirmed)3, 4 Medication overuse 11/30/15 Resolved headache(Confirmed)5 Migraine(Confirmed)6 08/29/16 Resolved Depression(Confirmed Resolved ) Osteoporosis(Confirm Resolved ed) Pneumonia(Confirmed) Resolved 7 Sciatica(Confirmed) Resolved Encounter for Active competency evaluation(Confirmed ) Status 11/30/15 Resolved migrainosus(Confirme d)8, 9 1Data migrated from [employer] on 10/03/15. Refractory back pain on PM [...] as Low back pain. 2Data migrated from [employer] on 10/03/15. 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 There is no interval worsening since I last saw her.--She is on Gilenya and is now JCV- Originally documented as Multiple sclerosis. 3Data migrated from [employer] on 10/03/15. Currently doing well. But no longer under PM care. Originally documented as Lumbar back pain. 4Data migrated from [employer] on 10/03/15. Refractory back pain on PM via Dr. Fraga. She is on chronic opiods and previously was treated with ESIs. She is offered a SCS but the MRI restrictions could be a major problem. I discussed this with Dr. Fraga. --Her anorexia has resolved off of HM on MS instead. Originally documented as Lumbar back pain. 5Data migrated from [employer] on 10/03/15. The frequent use of imitrex inj. has likely led to overuse headache again. Originally documented as Medication overuse headache. 6Data migrated from [employer] on 10/03/15. Reduced now. Originally documented as Chronic migraine. 8Data migrated from [employer] on 10/03/15. Again. We will bridge therapy stopping imitrex then treat with DHE migraine protocol. She may not use the injections within 24 hours of DHE treatment and then would do best to minimize the headache treatment to 1/week. Originally documented as Status migrainosus. 9Data migrated from [employer] on 10/03/15. Originally documented as Status migrainosus. Allergies, Adverse Reactions, Alerts Substance Reaction Severity Status codeine1 Active meperidine2 Active 1Data migrated from [employer] on 10/01/16. Originally documented as Codeine Phosphate. 2Data migrated from [employer] on 10/01/16. Originally documented as Demerol. Medications No data available for this section Results No data available for this section Immunizations No data available for this section Procedures Procedure Date Related Diagnosis Body Site Laminectomy1 1998 Caesarean section 06/16/86 Appendectomy 1980 Hysterectomy 1back Social History Social History Type Response Substance Abuse Use: None. Employment/School Status: Unemployed. Highest education level: Some college. Alcohol Never Smoking Status Current some day smoker; Exposure to Tobacco Smoke current smoker; Cigarette Smoking Last 365 Days Yes; Reg Smoking Cessation Counseling No Assessment and Plan No data available for this section
--- OUTSIDE RECORDS SUMMARY | 2018-08-14 08:51 | XMS REPORT | Summary of Care ---
Author Author [facility] Organization [facility] Address Unknown Phone Unavailable Encounter DWIGHT Cadena(YUMI) [id number] Date(s): 08/29/17 - 08/29/17 [facility] [address] [place] [phone] Discharge Disposition: Home or Self Care Attending Physician: Jose Antonio Roldan MD Referring Physician: Jose Antonio Roldan MD Vital Signs Most recent to 1 oldest [Reference Range]: Blood Pressure 135/91 mmHg [90-140/60-90 mmHg] (08/29/17 4:16 PM) Peripheral Pulse 67 bpm Rate [60-100 bpm] (08/29/17 4:16 PM) Weight 60.455 kg (08/29/17 4:16 PM) Problem List Condition Effective Dates Status Health [...] Resolved migrainosus(Confirme d)8, 9 1Data migrated from [employer] on 10/03/15. Refractory back pain on PM [...] as Low back pain. 2Data migrated from [employer] on 10/03/15. 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 There is no interval worsening since I last saw her.--She is on Gilenya and is now JCV- Originally documented as Multiple sclerosis. 3Data migrated from [employer] on 10/03/15. Currently doing well. But no longer under PM care. Originally documented as Lumbar back pain. 4Data migrated from [employer] on 10/03/15. Refractory back pain on PM via Dr. Fraga. She is on chronic opiods and previously was treated with ESIs. She is offered a SCS but the MRI restrictions could be a major problem. I discussed this with Dr. Fraga. --Her anorexia has resolved off of HM on MS instead. Originally documented as Lumbar back pain. 5Data migrated from [employer] on 10/03/15. The frequent use of imitrex inj. has likely led to overuse headache again. Originally documented as Medication overuse headache. 6Data migrated from [employer] on 10/03/15. Reduced now. Originally documented as Chronic migraine. 8Data migrated from [employer] on 10/03/15. Again. We will bridge therapy stopping imitrex then treat with DHE migraine protocol. She may not use the injections within 24 hours of DHE treatment and then would do best to minimize the headache treatment to 1/week. Originally documented as Status migrainosus. 9Data migrated from [employer] on 10/03/15. Originally documented as Status migrainosus. Allergies, Adverse Reactions, Alerts Substance Reaction Severity Status codeine1 Active meperidine2 Active 1Data migrated from [employer] on 10/01/16. Originally documented as Codeine Phosphate. 2Data migrated from [employer] on 10/01/16. Originally documented as Demerol. Medications Cymbalta PO, Daily, 180mg, 0 Refill(s) Start Date: 08/29/17 Status: Ordered Results No data available for this section Immunizations No data available for this section Procedures Procedure Date Related Diagnosis Body Site Laminectomy1 1998 Caesarean section 06/16/86 Appendectomy 1979 Hysterectomy 1back Social History Social History Type Response Substance Abuse Use: None. Employment/School Status: Unemployed. Highest education level: Some college. Alcohol Never Smoking Status Current some day smoker; Exposure to Tobacco Smoke current smoker; Cigarette Smoking Last 365 Days Yes; Reg Smoking Cessation Counseling No Assessment and Plan No data available for this section
--- OUTSIDE RECORDS SUMMARY | 2018-08-14 08:51 | XMS REPORT | Summary of Care ---
Author Author [facility] [place] Organization [facility] [place] Address Unknown Phone Unavailable Encounter HQ Encntr_alias(FIN) [id number] Date(s): 06/16/16 - 06/16/16 [facility] [place] [address] [place] [phone] Discharge Disposition: Home or Self Care Attending Physician: Jose Antonio Roldan MD Vital Signs No data available for this section Problem List No data available for this section Allergies, Adverse Reactions, Alerts No data available for this section Medications No data available for this section Results No data available for this section Immunizations No data available for this section Procedures No data available for this section Social History No data available for this section Assessment and Plan No data available for this section
--- OUTSIDE RECORDS SUMMARY | 2018-08-14 08:51 | XMS REPORT | Summary of Care ---
Author Organization Unknown Address Unknown Phone Unavailable Encounter HQ Encntr_alias([facility]) [id number] Date(s): 12/20/14 - 12/20/14 [facility] Outpatient Imaging - [place] [address] [place] [address] [phone] Discharge Disposition: Home Physician Attending: Liu Luo MD Vital Signs No data available for [...]
--- OUTSIDE RECORDS SUMMARY | 2018-08-14 08:51 | XMS REPORT | Summary of Care ---
Author Organization Unknown Address Unknown Phone Unavailable Encounter HQ Surinder(YUMI) [id number] Date(s): 03/16/15 - 03/16/15 [facility] [address] [place] [address]- Discharge Disposition: Home Physician Attending: Efrain Kelly MD Physician_Referring: Efrain Kelly MD Vital Signs No data available for this section Problem List No data available for this section Allergies, Adverse Reactions, Alerts No data available for this section Medications No data available for this section Results CHEM PANEL Most recent to 1 oldest [Reference Range]: eGFR 83 mL/min/1.73m2 1 *NA* (03/16/15 9:12 AM) POC Creatinine 0.8 mg/dL [0.5-1.4 mg/dL] (03/16/15 9:12 AM) Total Protein 7.5 g/dL [6.4-8.4 g/dL] (03/16/15 9:22 AM) Albumin Lvl [3.5-5.0 3.4 g/dL g/dL] *LOW* (03/16/15 9:22 AM) Globulin [2.0-4.0 4.1 g/dL g/dL] *HI* (03/16/15 9:22 AM) A/G Ratio [0.7-1.6] 0.8 (03/16/15 9:22 AM) ALT [0-65 unit/L] 52 unit/L (03/16/15 9:22 AM) AST [0-37 unit/L] 50 unit/L *HI* (03/16/15 9:22 AM) Alk Phos [39-136 110 unit/L unit/L] (03/16/15 9:22 AM) Bili Total [0.2-1.3 0.4 mg/dL mg/dL] (03/16/15 9:22 AM) Bili Direct [0.0-0.3 <0.1 mg/dL mg/dL] (03/16/15 9:22 AM) Bili Indirect >0.3 mg/dL [0.0-1.0 mg/dL] (03/16/15 9:22 AM) 1Result Comment: The eGFR is calculated using [...] from the National Kidney Disease Education Program ( NKDEP) which additionally recommends that when the eGFR is used in patients with extremes of body mass index for purposes of drug dosing, the eGFR should be mul tiplied by the estimated BMI. IMMUNOLOGY Most recent to 1 oldest [Reference Range]: JOELLEN [Negative] Negative (03/16/15 9:22 AM) AMA Ab Scr Negative [Negative] (03/16/15 9:22 AM) CRP [<=2.9 mg/L] 8.1 mg/L *HI* (03/16/15 9:22 AM) HEMATOLOGY Most recent to 1 oldest [Reference Range]: WBC [3.7-10.4 K/CMM] 5.5 K/CMM (03/16/15 9:22 AM) RBC [4.20-5.40 3.39 M/CMM M/CMM] *LOW* (03/16/15 9:22 AM) Hgb [12.0-16.0 g/dL] 11.4 g/dL *LOW* (03/16/15 9:22 AM) Hct [36.0-48.0 %] 33.9 % *LOW* (03/16/15 9:22 AM) MCV [80.0-98.0 fL] 99.9 fL *HI* (03/16/15 9:22 AM) MCH [27.0-31.0 pg] 33.7 pg *HI* (03/16/15 9:22 AM) MCHC [32.0-36.0 33.7 g/dL g/dL] (03/16/15 9:22 AM) RDW [11.5-14.5 %] 15.2 % *HI* (03/16/15 9:22 AM) Platelet [133-450 293 K/CMM K/CMM] (03/16/15 9:22 AM) MPV [7.4-10.4 fL] 8.4 fL (03/16/15 9:22 AM) Segs [45.0-75.0 %] 79.1 % *HI* (03/16/15 9:22 AM) Lymphocytes 7.5 % [20.0-40.0 %] *LOW* (03/16/15 9:22 AM) Monocytes [2.0-12.0 12.7 % %] *HI* (03/16/15 9:22 AM) Eosinophils [0.0-4.0 0.2 % %] (03/16/15 9:22 AM) Basophils [0.0-1.0 0.5 % %] (03/16/15 9:22 AM) Segs-Bands # 4.3 K/CMM [1.5-8.1 K/CMM] (03/16/15 9:22 AM) Lymphocytes # 0.4 K/CMM [1.0-5.5 K/CMM] *LOW* (03/16/15 9:22 AM) Monocytes # [0.0-0.8 0.7 K/CMM K/CMM] (03/16/15 9:22 AM) Macrocyte [None 1+ Seen] *ABN* (03/16/15 9:22 AM) Sed Rate [0-20 40 mm/hr mm/hr] *HI* (03/16/15 9:22 AM) Immunizations No data available for this section Procedures No data available for this section Social History No data available for this section Assessment and Plan No data available for this section
--- OUTSIDE RECORDS SUMMARY | 2018-08-14 08:51 | XMS REPORT | Summary of Care ---
Author Author [facility] Organization [facility] Address Unknown Phone Unavailable Encounter DWIGHT Cadena(YUMI) [id number] Date(s): 10/16/17 - 10/16/17 [facility] [address] [place] [phone] Discharge Disposition: Home or Self Care Attending Physician: Jose Antonio Roldan MD Vital Signs Most recent to 1 oldest [Reference Range]: Height 170.18 cm (10/15/17 6:53 PM) Blood Pressure 143/99 mmHg [90-140/60-90 mmHg] *HI* (10/15/17 6:53 PM) Peripheral Pulse 84 bpm Rate [60-100 bpm] (10/15/17 6:53 PM) Weight 59.273 kg (10/15/17 6:53 PM) Body Mass Index 20.47 m2 (10/15/17 6:53 PM) Problem List Condition Effective Dates Status [...] Resolved migrainosus(Confirme d)8, 9 1Data migrated from [employer] on 10/03/15. Refractory back pain on PM [...] as Low back pain. 2Data migrated from [employer] on 10/03/15. 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 There is no interval worsening since I last saw her.--She is on Gilenya and is now JCV- Originally documented as Multiple sclerosis. 3Data migrated from [employer] on 10/03/15. Currently doing well. But no longer under PM care. Originally documented as Lumbar back pain. 4Data migrated from [employer] on 10/03/15. Refractory back pain on PM via Dr. Fraga. She is on chronic opiods and previously was treated with ESIs. She is offered a SCS but the MRI restrictions could be a major problem. I discussed this with Dr. Fraga. --Her anorexia has resolved off of HM on MS instead. Originally documented as Lumbar back pain. 5Data migrated from [employer] on 10/03/15. The frequent use of imitrex inj. has likely led to overuse headache again. Originally documented as Medication overuse headache. 6Data migrated from [employer] on 10/03/15. Reduced now. Originally documented as Chronic migraine. 8Data migrated from [employer] on 10/03/15. Again. We will bridge therapy stopping imitrex then treat with DHE migraine protocol. She may not use the injections within 24 hours of DHE treatment and then would do best to minimize the headache treatment to 1/week. Originally documented as Status migrainosus. 9Data migrated from [employer] on 10/03/15. Originally documented as Status migrainosus. Allergies, Adverse Reactions, Alerts Substance Reaction Severity Status codeine1 Active meperidine2 Active 1Data migrated from [employer] on 10/01/16. Originally documented as Codeine Phosphate. 2Data migrated from [employer] on 10/01/16. Originally documented as Demerol. Medications Cymbalta 60 mg oral delayed release capsule 180 mg=3 cap, PO, Daily, 0 Refill(s) Start Date: 10/16/17 Status: Ordered Ocrevus 300 mg/10 mL intravenous solution 600 mg, IV, q6mo, # 2 inj, 0 Refill(s), other Start Date: 10/16/17 Stop Date: 09/16/19 Status: Ordered Results No data available for [...]
--- OUTSIDE RECORDS SUMMARY | 2018-08-14 08:51 | XMS REPORT | Summary of Care ---
Author Author [facility] Organization [facility] Address Unknown Phone Unavailable Encounter HQ Surinder(FIN) [id number] Date(s): 01/16/18 - 01/17/18 [facility] [address] [place] [phone] Vital Signs No data available for this [...] Resolved migrainosus(Confirme d)8, 9 1Data migrated from [employer] on 10/03/15. Refractory back pain on PM [...] as Low back pain. 2Data migrated from [employer] on 10/03/15. 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 There is no interval worsening since I last saw her.--She is on Gilenya and is now JCV- Originally documented as Multiple sclerosis. 3Data migrated from [employer] on 10/03/15. Currently doing well. But no longer under PM care. Originally documented as Lumbar back pain. 4Data migrated from [employer] on 10/03/15. Refractory back pain on PM via Dr. Fraga. She is on chronic opiods and previously was treated with ESIs. She is offered a SCS but the MRI restrictions could be a major problem. I discussed this with Dr. Fraga. --Her anorexia has resolved off of HM on MS instead. Originally documented as Lumbar back pain. 5Data migrated from [employer] on 10/03/15. The frequent use of imitrex inj. has likely led to overuse headache again. Originally documented as Medication overuse headache. 6Data migrated from [employer] on 10/03/15. Reduced now. Originally documented as Chronic migraine. 8Data migrated from [employer] on 10/03/15. Again. We will bridge therapy stopping imitrex then treat with DHE migraine protocol. She may not use the injections within 24 hours of DHE treatment and then would do best to minimize the headache treatment to 1/week. Originally documented as Status migrainosus. 9Data migrated from [employer] on 10/03/15. Originally documented as Status migrainosus. Allergies, Adverse Reactions, Alerts Substance Reaction Severity Status codeine1 Active meperidine2 Active 1Data migrated from [employer] on 10/01/16. Originally documented as Codeine Phosphate. 2Data migrated from [employer] on 10/01/16. Originally documented as Demerol. Medications [...]
--- OUTSIDE RECORDS SUMMARY | 2018-08-14 08:51 | XMS REPORT | Summary of Care ---
Author Author [facility] Outpatient Imaging [facility] Outpatient Imaging [facility] Address Unknown Phone Unavailable Encounter DWIGHT Cadena(FIN) [id number] Date(s): 08/21/17 - 08/21/17 [facility] Outpatient Imaging [facility] [address] [facility], [address] [place] [phone] Discharge Disposition: Home or Self Care Attending Physician: Danica Guevara MD Vital Signs No data available for [...] Resolved migrainosus(Confirme d)8, 9 1Data migrated from [employer] on 10/03/15. Refractory back pain on PM [...] as Low back pain. 2Data migrated from [employer] on 10/03/15. 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 There is no interval worsening since I last saw her.--She is on Gilenya and is now JCV- Originally documented as Multiple sclerosis. 3Data migrated from [employer] on 10/03/15. Currently doing well. But no longer under PM care. Originally documented as Lumbar back pain. 4Data migrated from [employer] on 10/03/15. Refractory back pain on PM via Dr. Fraga. She is on chronic opiods and previously was treated with ESIs. She is offered a SCS but the MRI restrictions could be a major problem. I discussed this with Dr. Fraga. --Her anorexia has resolved off of HM on MS instead. Originally documented as Lumbar back pain. 5Data migrated from [employer] on 10/03/15. The frequent use of imitrex inj. has likely led to overuse headache again. Originally documented as Medication overuse headache. 6Data migrated from [employer] on 10/03/15. Reduced now. Originally documented as Chronic migraine. 8Data migrated from [employer] on 10/03/15. Again. We will bridge therapy stopping imitrex then treat with DHE migraine protocol. She may not use the injections within 24 hours of DHE treatment and then would do best to minimize the headache treatment to 1/week. Originally documented as Status migrainosus. 9Data migrated from [employer] on 10/03/15. Originally documented as Status migrainosus. Allergies, Adverse Reactions, Alerts Substance Reaction Severity Status codeine1 Active meperidine2 Active 1Data migrated from [employer] on 10/01/16. Originally documented as Codeine Phosphate. 2Data migrated from [employer] on 10/01/16. Originally documented as Demerol. Medications [...]
--- OUTSIDE RECORDS SUMMARY | 2018-08-14 08:51 | XMS REPORT | Summary of Care ---
Author Author [facility] Organization [facility] Address Unknown Phone Unavailable Encounter HQ Surinder(FIN) [id number] Date(s): 10/02/17 - 10/03/17 [facility] [address] [place] [phone] Vital Signs No data available for this [...] Resolved migrainosus(Confirme d)8, 9 1Data migrated from [employer] on 10/03/15. Refractory back pain on PM [...] as Low back pain. 2Data migrated from [employer] on 10/03/15. 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 There is no interval worsening since I last saw her.--She is on Gilenya and is now JCV- Originally documented as Multiple sclerosis. 3Data migrated from [employer] on 10/03/15. Currently doing well. But no longer under PM care. Originally documented as Lumbar back pain. 4Data migrated from [employer] on 10/03/15. Refractory back pain on PM via Dr. Fraga. She is on chronic opiods and previously was treated with ESIs. She is offered a SCS but the MRI restrictions could be a major problem. I discussed this with Dr. Fraga. --Her anorexia has resolved off of HM on MS instead. Originally documented as Lumbar back pain. 5Data migrated from [employer] on 10/03/15. The frequent use of imitrex inj. has likely led to overuse headache again. Originally documented as Medication overuse headache. 6Data migrated from [employer] on 10/03/15. Reduced now. Originally documented as Chronic migraine. 8Data migrated from [employer] on 10/03/15. Again. We will bridge therapy stopping imitrex then treat with DHE migraine protocol. She may not use the injections within 24 hours of DHE treatment and then would do best to minimize the headache treatment to 1/week. Originally documented as Status migrainosus. 9Data migrated from [employer] on 10/03/15. Originally documented as Status migrainosus. Allergies, Adverse Reactions, Alerts Substance Reaction Severity Status codeine1 Active meperidine2 Active 1Data migrated from [employer] on 10/01/16. Originally documented as Codeine Phosphate. 2Data migrated from [employer] on 10/01/16. Originally documented as Demerol. Medications Valtrex 1 g oral tablet 1 gm=1 tab, PO, Q24H, X 30 day, # 30 tab, 1 Refill(s), Pharmacy: [facility] [id number] Start Date: 10/02/17 Stop Date: 11/20/17 Status: Discontinued Results No data available for this section [...]
--- OUTSIDE RECORDS SUMMARY | 2018-08-14 08:51 | XMS REPORT | Summary of Care ---
Author Author [facility] Organization [facility] Address Unknown Phone Unavailable Encounter DWIGHT Cadena(YUMI) [id number] Date(s): 03/21/17 - 03/21/17 [facility] [address] [place] [address]- Discharge Disposition: Home or Self Care Attending Physician: Jose Antonio Roldan MD Referring Physician: Jose Antonio Roldan MD Vital Signs Most recent to 1 oldest [Reference Range]: Height 170.18 cm (03/21/17 5:25 PM) Weight 56.818 kg (03/21/17 5:25 PM) Body Mass Index 19.62 m2 (03/21/17 5:25 PM) Problem List Condition Effective Dates Status Health Status Informant Autoimmune < 03/16/14 Resolved hepatitis(Confirmed) Backache(Confirmed)1 08/31/15 Resolved Ulcerative Resolved colitis(Confirmed) Disseminated 08/29/16 Resolved sclerosis(Confirmed) 2 Esophageal Resolved reflux(Confirmed) Herpes(Confirmed) Resolved Asthma(Confirmed) Resolved Low back 08/29/16 Active pain(Confirmed)3, 4 Medication overuse 11/30/15 Resolved headache(Confirmed)5 Migraine(Confirmed)6 08/29/16 Resolved Depression(Confirmed Resolved ) Osteoporosis(Confirm Resolved ed) Pneumonia(Confirmed) Resolved 7 Sciatica(Confirmed) Resolved Status 11/30/15 Resolved migrainosus(Confirme d)8, 9 1Data migrated from [employer] on 10/03/15. Refractory back pain on PM [...] as Low back pain. 2Data migrated from [employer] on 10/03/15. 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 There is no interval worsening since I last saw her.--She is on Gilenya and is now JCV- Originally documented as Multiple sclerosis. 3Data migrated from [employer] on 10/03/15. Currently doing well. But no longer under PM care. Originally documented as Lumbar back pain. 4Data migrated from [employer] on 10/03/15. Refractory back pain on PM via Dr. Fraga. She is on chronic opiods and previously was treated with ESIs. She is offered a SCS but the MRI restrictions could be a major problem. I discussed this with Dr. Fraga. --Her anorexia has resolved off of HM on MS instead. Originally documented as Lumbar back pain. 5Data migrated from [employer] on 10/03/15. The frequent use of imitrex inj. has likely led to overuse headache again. Originally documented as Medication overuse headache. 6Data migrated from [employer] on 10/03/15. Reduced now. Originally documented as Chronic migraine. 8Data migrated from [employer] on 10/03/15. Again. We will bridge therapy stopping imitrex then treat with DHE migraine protocol. She may not use the injections within 24 hours of DHE treatment and then would do best to minimize the headache treatment to 1/week. Originally documented as Status migrainosus. 9Data migrated from [employer] on 10/03/15. Originally documented as Status migrainosus. Allergies, Adverse Reactions, Alerts Substance Reaction Severity Status codeine1 Active meperidine2 Active 1Data migrated from [employer] on 10/01/16. Originally documented as Codeine Phosphate. 2Data migrated from [employer] on 10/01/16. Originally documented as Demerol. Medications No data available for this section Results No data available for this section Immunizations No data available for this section Procedures Procedure Date Related Diagnosis Body Site Laminectomy1 1998 Caesarean section 06/16/86 Appendectomy 1980 Hysterectomy 1back Social History Social History Type Response Employment/School Status: Unemployed. Highest education level: Some college. Alcohol Never Smoking Status Current some day smoker; Exposure to Tobacco Smoke current smoker; Cigarette Smoking Last 365 Days Yes; Reg Smoking Cessation Counseling No Assessment and Plan No data available for this section
--- OUTSIDE RECORDS SUMMARY | 2018-08-14 08:51 | XMS REPORT | Summary of Care ---
Author Author [facility] [place] Organization [facility] [place] Address Unknown Phone Unavailable Encounter DWIGHT Cadena(FIN) [id number] Date(s): 08/30/17 - 08/30/17 [facility] Outpatient Imaging - [place] [address] [place] [phone] Discharge Disposition: Home or Self Care Attending [...] Resolved migrainosus(Confirme d)8, 9 1Data migrated from [employer] on 10/03/15. Refractory back pain on PM [...] as Low back pain. 2Data migrated from [employer] on 10/03/15. 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 There is no interval worsening since I last saw her.--She is on Gilenya and is now JCV- Originally documented as Multiple sclerosis. 3Data migrated from [employer] on 10/03/15. Currently doing well. But no longer under PM care. Originally documented as Lumbar back pain. 4Data migrated from [employer] on 10/03/15. Refractory back pain on PM via Dr. Fraga. She is on chronic opiods and previously was treated with ESIs. She is offered a SCS but the MRI restrictions could be a major problem. I discussed this with Dr. Fraga. --Her anorexia has resolved off of HM on MS instead. Originally documented as Lumbar back pain. 5Data migrated from [employer] on 10/03/15. The frequent use of imitrex inj. has likely led to overuse headache again. Originally documented as Medication overuse headache. 6Data migrated from [employer] on 10/03/15. Reduced now. Originally documented as Chronic migraine. 8Data migrated from [employer] on 10/03/15. Again. We will bridge therapy stopping imitrex then treat with DHE migraine protocol. She may not use the injections within 24 hours of DHE treatment and then would do best to minimize the headache treatment to 1/week. Originally documented as Status migrainosus. 9Data migrated from [employer] on 10/03/15. Originally documented as Status migrainosus. Allergies, Adverse Reactions, Alerts Substance Reaction Severity Status codeine1 Active meperidine2 Active 1Data migrated from [employer] on 10/01/16. Originally documented as Codeine Phosphate. 2Data migrated from [employer] on 10/01/16. Originally documented as Demerol. Medications [...]
--- OUTSIDE RECORDS SUMMARY | 2018-08-14 08:51 | XMS REPORT | Summary of Care ---
Author Author [facility] Outpatient Imaging [facility] Address Unknown Phone Unavailable Encounter HQ Encntr_alias(FIN) [id number] Date(s): 07/09/16 - 07/09/16 [facility] Outpatient Imaging [facility] [address] [facility], [address] [place], [place] [address] [phone] Discharge Disposition: Home or Self Care Attending Physician: Liu Luo MD Vital Signs No data [...]
--- OUTSIDE RECORDS SUMMARY | 2018-08-14 08:51 | XMS REPORT | Summary of Care ---
Author Author [facility] Organization [facility] Address Unknown Phone Unavailable Encounter HQ Surinder(FIN) [id number] Date(s): 10/15/17 - 10/16/17 [facility] [address] [place] [phone] Vital Signs No data available for this [...] Resolved migrainosus(Confirme d)8, 9 1Data migrated from [employer] on 10/03/15. Refractory back pain on PM [...] as Low back pain. 2Data migrated from [employer] on 10/03/15. 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 There is no interval worsening since I last saw her.--She is on Gilenya and is now JCV- Originally documented as Multiple sclerosis. 3Data migrated from [employer] on 10/03/15. Currently doing well. But no longer under PM care. Originally documented as Lumbar back pain. 4Data migrated from [employer] on 10/03/15. Refractory back pain on PM via Dr. Fraga. She is on chronic opiods and previously was treated with ESIs. She is offered a SCS but the MRI restrictions could be a major problem. I discussed this with Dr. Fraga. --Her anorexia has resolved off of HM on MS instead. Originally documented as Lumbar back pain. 5Data migrated from [employer] on 10/03/15. The frequent use of imitrex inj. has likely led to overuse headache again. Originally documented as Medication overuse headache. 6Data migrated from [employer] on 10/03/15. Reduced now. Originally documented as Chronic migraine. 8Data migrated from [employer] on 10/03/15. Again. We will bridge therapy stopping imitrex then treat with DHE migraine protocol. She may not use the injections within 24 hours of DHE treatment and then would do best to minimize the headache treatment to 1/week. Originally documented as Status migrainosus. 9Data migrated from [employer] on 10/03/15. Originally documented as Status migrainosus. Allergies, Adverse Reactions, Alerts Substance Reaction Severity Status codeine1 Active meperidine2 Active 1Data migrated from [employer] on 10/01/16. Originally documented as Codeine Phosphate. 2Data migrated from [employer] on 10/01/16. Originally documented as Demerol. Medications [...]
--- OUTSIDE RECORDS SUMMARY | 2018-08-14 08:51 | XMS REPORT | Summary of Care ---
Author Author [facility] Organization [facility] Address Unknown Phone Unavailable Encounter HQ Surinder(FIN) [id number] Date(s): 09/27/17 - 09/28/17 [facility] [address] [place] [phone] Vital Signs No data available for this [...] Resolved migrainosus(Confirme d)8, 9 1Data migrated from [employer] on 10/03/15. Refractory back pain on PM [...] as Low back pain. 2Data migrated from [employer] on 10/03/15. 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 There is no interval worsening since I last saw her.--She is on Gilenya and is now JCV- Originally documented as Multiple sclerosis. 3Data migrated from [employer] on 10/03/15. Currently doing well. But no longer under PM care. Originally documented as Lumbar back pain. 4Data migrated from [employer] on 10/03/15. Refractory back pain on PM via Dr. Fraga. She is on chronic opiods and previously was treated with ESIs. She is offered a SCS but the MRI restrictions could be a major problem. I discussed this with Dr. Fraga. --Her anorexia has resolved off of HM on MS instead. Originally documented as Lumbar back pain. 5Data migrated from [employer] on 10/03/15. The frequent use of imitrex inj. has likely led to overuse headache again. Originally documented as Medication overuse headache. 6Data migrated from [employer] on 10/03/15. Reduced now. Originally documented as Chronic migraine. 8Data migrated from [employer] on 10/03/15. Again. We will bridge therapy stopping imitrex then treat with DHE migraine protocol. She may not use the injections within 24 hours of DHE treatment and then would do best to minimize the headache treatment to 1/week. Originally documented as Status migrainosus. 9Data migrated from [employer] on 10/03/15. Originally documented as Status migrainosus. Allergies, Adverse Reactions, Alerts Substance Reaction Severity Status codeine1 Active meperidine2 Active 1Data migrated from [employer] on 10/01/16. Originally documented as Codeine Phosphate. 2Data migrated from [employer] on 10/01/16. Originally documented as Demerol. Medications [...]
--- OUTSIDE RECORDS SUMMARY | 2018-08-14 08:51 | XMS REPORT | Summary of Care ---
Author Author [facility] Outpatient Imaging [facility] Outpatient Imaging [facility] Address Unknown Phone Unavailable Encounter DWIGHT Cadena(YUMI) [id number] Date(s): 02/22/17 - 02/22/17 [facility] Outpatient Imaging [facility] [address] [facility], [address] [place] [phone] Discharge Disposition: Home or Self Care Attending Physician: Keturah Parker MD Vital Signs No data available for [...] Resolved migrainosus(Confirme d)8, 9 1Data migrated from [employer] on 10/03/15. Refractory back pain on PM [...] as Low back pain. 2Data migrated from [employer] on 10/03/15. 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 There is no interval worsening since I last saw her.--She is on Gilenya and is now JCV- Originally documented as Multiple sclerosis. 3Data migrated from [employer] on 10/03/15. Currently doing well. But no longer under PM care. Originally documented as Lumbar back pain. 4Data migrated from [employer] on 10/03/15. Refractory back pain on PM via Dr. Fraga. She is on chronic opiods and previously was treated with ESIs. She is offered a SCS but the MRI restrictions could be a major problem. I discussed this with Dr. Fraga. --Her anorexia has resolved off of HM on MS instead. Originally documented as Lumbar back pain. 5Data migrated from [employer] on 10/03/15. The frequent use of imitrex inj. has likely led to overuse headache again. Originally documented as Medication overuse headache. 6Data migrated from [employer] on 10/03/15. Reduced now. Originally documented as Chronic migraine. 8Data migrated from [employer] on 10/03/15. Again. We will bridge therapy stopping imitrex then treat with DHE migraine protocol. She may not use the injections within 24 hours of DHE treatment and then would do best to minimize the headache treatment to 1/week. Originally documented as Status migrainosus. 9Data migrated from [employer] on 10/03/15. Originally documented as Status migrainosus. Allergies, Adverse Reactions, Alerts Substance Reaction Severity Status codeine1 Active meperidine2 Active 1Data migrated from [employer] on 10/01/16. Originally documented as Codeine Phosphate. 2Data migrated from [employer] on 10/01/16. Originally documented as Demerol. Medications [...]
--- OUTSIDE RECORDS SUMMARY | 2018-08-14 08:51 | XMS REPORT | Summary of Care ---
Author Author [facility] Organization [facility] Address Unknown Phone Unavailable Encounter HQ Surinder(FIN) [id number] Date(s): 09/19/17 - 09/20/17 [facility] [address] [place] [phone] Vital Signs No data available for this [...] Resolved migrainosus(Confirme d)8, 9 1Data migrated from [employer] on 10/03/15. Refractory back pain on PM [...] as Low back pain. 2Data migrated from [employer] on 10/03/15. 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 There is no interval worsening since I last saw her.--She is on Gilenya and is now JCV- Originally documented as Multiple sclerosis. 3Data migrated from [employer] on 10/03/15. Currently doing well. But no longer under PM care. Originally documented as Lumbar back pain. 4Data migrated from [employer] on 10/03/15. Refractory back pain on PM via Dr. Fraga. She is on chronic opiods and previously was treated with ESIs. She is offered a SCS but the MRI restrictions could be a major problem. I discussed this with Dr. Fraga. --Her anorexia has resolved off of HM on MS instead. Originally documented as Lumbar back pain. 5Data migrated from [employer] on 10/03/15. The frequent use of imitrex inj. has likely led to overuse headache again. Originally documented as Medication overuse headache. 6Data migrated from [employer] on 10/03/15. Reduced now. Originally documented as Chronic migraine. 8Data migrated from [employer] on 10/03/15. Again. We will bridge therapy stopping imitrex then treat with DHE migraine protocol. She may not use the injections within 24 hours of DHE treatment and then would do best to minimize the headache treatment to 1/week. Originally documented as Status migrainosus. 9Data migrated from [employer] on 10/03/15. Originally documented as Status migrainosus. Allergies, Adverse Reactions, Alerts Substance Reaction Severity Status codeine1 Active meperidine2 Active 1Data migrated from [employer] on 10/01/16. Originally documented as Codeine Phosphate. 2Data migrated from [employer] on 10/01/16. Originally documented as Demerol. Medications [...]
--- OUTSIDE RECORDS SUMMARY | 2018-08-14 08:51 | XMS REPORT | Summary of Care ---
Author Author [facility] Organization [facility] Address Unknown Phone Unavailable Encounter HQ Surinder(FIN) [id number] Date(s): 02/05/18 - 02/06/18 [facility] [address] [place] [phone] Vital Signs No data available for this [...] Resolved migrainosus(Confirme d)8, 9 1Data migrated from [employer] on 10/03/15. Refractory back pain on PM [...] as Low back pain. 2Data migrated from [employer] on 10/03/15. 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 There is no interval worsening since I last saw her.--She is on Gilenya and is now JCV- Originally documented as Multiple sclerosis. 3Data migrated from [employer] on 10/03/15. Currently doing well. But no longer under PM care. Originally documented as Lumbar back pain. 4Data migrated from [employer] on 10/03/15. Refractory back pain on PM via Dr. Fraga. She is on chronic opiods and previously was treated with ESIs. She is offered a SCS but the MRI restrictions could be a major problem. I discussed this with Dr. Fraga. --Her anorexia has resolved off of HM on MS instead. Originally documented as Lumbar back pain. 5Data migrated from [employer] on 10/03/15. The frequent use of imitrex inj. has likely led to overuse headache again. Originally documented as Medication overuse headache. 6Data migrated from [employer] on 10/03/15. Reduced now. Originally documented as Chronic migraine. 8Data migrated from [employer] on 10/03/15. Again. We will bridge therapy stopping imitrex then treat with DHE migraine protocol. She may not use the injections within 24 hours of DHE treatment and then would do best to minimize the headache treatment to 1/week. Originally documented as Status migrainosus. 9Data migrated from [employer] on 10/03/15. Originally documented as Status migrainosus. Allergies, Adverse Reactions, Alerts Substance Reaction Severity Status codeine1 Active meperidine2 Active 1Data migrated from [employer] on 10/01/16. Originally documented as Codeine Phosphate. 2Data migrated from [employer] on 10/01/16. Originally documented as Demerol. Medications [...]
--- OUTSIDE RECORDS SUMMARY | 2018-08-14 08:51 | XMS REPORT | Summary of Care ---
Author Author [facility] [place] Organization [facility] [place] Address Unknown Phone Unavailable Encounter HQ Encntr_alias(FIN) [id number] Date(s): 06/29/16 - 06/29/16 [facility] [place] [address] [place] [phone] Discharge Disposition: Home or Self Care Attending [...]
--- OUTSIDE RECORDS SUMMARY | 2018-08-14 08:51 | XMS REPORT | Summary of Care ---
Author Author [facility] Organization [facility] Address Unknown Phone Unavailable Encounter HQ Surinder(FIN) [id number] Date(s): 09/27/17 - 09/28/17 [facility] [address] [place] [phone] Vital Signs No data available for this [...] Resolved migrainosus(Confirme d)8, 9 1Data migrated from [employer] on 10/03/15. Refractory back pain on PM [...] as Low back pain. 2Data migrated from [employer] on 10/03/15. 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 There is no interval worsening since I last saw her.--She is on Gilenya and is now JCV- Originally documented as Multiple sclerosis. 3Data migrated from [employer] on 10/03/15. Currently doing well. But no longer under PM care. Originally documented as Lumbar back pain. 4Data migrated from [employer] on 10/03/15. Refractory back pain on PM via Dr. Fraga. She is on chronic opiods and previously was treated with ESIs. She is offered a SCS but the MRI restrictions could be a major problem. I discussed this with Dr. Fraga. --Her anorexia has resolved off of HM on MS instead. Originally documented as Lumbar back pain. 5Data migrated from [employer] on 10/03/15. The frequent use of imitrex inj. has likely led to overuse headache again. Originally documented as Medication overuse headache. 6Data migrated from [employer] on 10/03/15. Reduced now. Originally documented as Chronic migraine. 8Data migrated from [employer] on 10/03/15. Again. We will bridge therapy stopping imitrex then treat with DHE migraine protocol. She may not use the injections within 24 hours of DHE treatment and then would do best to minimize the headache treatment to 1/week. Originally documented as Status migrainosus. 9Data migrated from [employer] on 10/03/15. Originally documented as Status migrainosus. Allergies, Adverse Reactions, Alerts Substance Reaction Severity Status codeine1 Active meperidine2 Active 1Data migrated from [employer] on 10/01/16. Originally documented as Codeine Phosphate. 2Data migrated from [employer] on 10/01/16. Originally documented as Demerol. Medications [...] Reg Smoking Cessation Counseling No entered on: 08/29/17 Assessment and Plan No data available for this section
--- OUTSIDE RECORDS SUMMARY | 2018-08-14 08:51 | XMS REPORT | Summary of Care ---
Author Author [facility] Organization [facility] Address Unknown Phone Unavailable Encounter HQ Surinder(FIN) [id number] Date(s): 11/19/17 - 11/20/17 [facility] [address] [place] [phone] Vital Signs No data available for this [...] Resolved migrainosus(Confirme d)8, 9 1Data migrated from [employer] on 10/03/15. Refractory back pain on PM [...] as Low back pain. 2Data migrated from [employer] on 10/03/15. 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 There is no interval worsening since I last saw her.--She is on Gilenya and is now JCV- Originally documented as Multiple sclerosis. 3Data migrated from [employer] on 10/03/15. Currently doing well. But no longer under PM care. Originally documented as Lumbar back pain. 4Data migrated from [employer] on 10/03/15. Refractory back pain on PM via Dr. Fraga. She is on chronic opiods and previously was treated with ESIs. She is offered a SCS but the MRI restrictions could be a major problem. I discussed this with Dr. Fraga. --Her anorexia has resolved off of HM on MS instead. Originally documented as Lumbar back pain. 5Data migrated from [employer] on 10/03/15. The frequent use of imitrex inj. has likely led to overuse headache again. Originally documented as Medication overuse headache. 6Data migrated from [employer] on 10/03/15. Reduced now. Originally documented as Chronic migraine. 8Data migrated from [employer] on 10/03/15. Again. We will bridge therapy stopping imitrex then treat with DHE migraine protocol. She may not use the injections within 24 hours of DHE treatment and then would do best to minimize the headache treatment to 1/week. Originally documented as Status migrainosus. 9Data migrated from [employer] on 10/03/15. Originally documented as Status migrainosus. Allergies, Adverse Reactions, Alerts Substance Reaction Severity Status codeine1 Active meperidine2 Active 1Data migrated from [employer] on 10/01/16. Originally documented as Codeine Phosphate. 2Data migrated from [employer] on 10/01/16. Originally documented as Demerol. Medications Imitrex Statdose 6 mg/0.5 mL subcutaneous solution See Instructions, INJECT 0.5ML DIRECTED, # 27 mL, 1 Refill(s), Pharmacy: [facility] [id number] Start Date: 11/20/17 Status: Ordered Valtrex 1 g oral tablet 1 gm=1 tab, PO, Q24H, X 30 day, # 30 tab, 3 Refill(s), Pharmacy: [email or web address] [id number] Start Date: 11/20/17 Stop Date: 03/20/18 Status: Ordered Results No data available for [...] Reg Smoking Cessation Counseling No entered on: 02/25/18 Assessment and Plan No data available for this section
--- OUTSIDE RECORDS SUMMARY | 2018-08-14 08:51 | XMS REPORT | Summary of Care ---
Author Author [facility] [place] Organization [facility] [place] Address Unknown Phone Unavailable Encounter DWIGHT Cadena(FIN) [id number] Date(s): 01/30/18 - 01/30/18 [facility] [place] [address] [place] [phone] Discharge Disposition: Home or Self Care Attending [...] Resolved migrainosus(Confirme d)8, 9 1Data migrated from [employer] on 10/03/15. Refractory back pain on PM [...] as Low back pain. 2Data migrated from [employer] on 10/03/15. 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 There is no interval worsening since I last saw her.--She is on Gilenya and is now JCV- Originally documented as Multiple sclerosis. 3Data migrated from [employer] on 10/03/15. Currently doing well. But no longer under PM care. Originally documented as Lumbar back pain. 4Data migrated from [employer] on 10/03/15. Refractory back pain on PM via Dr. Fraga. She is on chronic opiods and previously was treated with ESIs. She is offered a SCS but the MRI restrictions could be a major problem. I discussed this with Dr. Fraga. --Her anorexia has resolved off of HM on MS instead. Originally documented as Lumbar back pain. 5Data migrated from [employer] on 10/03/15. The frequent use of imitrex inj. has likely led to overuse headache again. Originally documented as Medication overuse headache. 6Data migrated from [employer] on 10/03/15. Reduced now. Originally documented as Chronic migraine. 8Data migrated from [employer] on 10/03/15. Again. We will bridge therapy stopping imitrex then treat with DHE migraine protocol. She may not use the injections within 24 hours of DHE treatment and then would do best to minimize the headache treatment to 1/week. Originally documented as Status migrainosus. 9Data migrated from [employer] on 10/03/15. Originally documented as Status migrainosus. Allergies, Adverse Reactions, Alerts Substance Reaction Severity Status codeine1 Active meperidine2 Active 1Data migrated from [employer] on 10/01/16. Originally documented as Codeine Phosphate. 2Data migrated from [employer] on 10/01/16. Originally documented as Demerol. Medications [...]
--- OUTSIDE RECORDS SUMMARY | 2018-08-14 08:52 | XMS REPORT | Summary of Care ---
Author Author [facility] Organization [facility] Address Unknown Phone Unavailable Encounter HQ Surinder(FIN) [id number] Date(s): 11/22/17 - 11/23/17 [facility] [address] [place] [phone] Vital Signs No data available for this [...] Resolved migrainosus(Confirme d)8, 9 1Data migrated from [email or web address] on 10/03/15. Refractory back pain on PM [...] as Low back pain. 2Data migrated from [email or web address] on 10/03/15. 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 There is no interval worsening since I last saw her.--She is on Gilenya and is now JCV- Originally documented as Multiple sclerosis. 3Data migrated from [email or web address] on 10/03/15. Currently doing well. But no longer under PM care. Originally documented as Lumbar back pain. 4Data migrated from [email or web address] on 10/03/15. Refractory back pain on PM via Dr. Fraga. She is on chronic opiods and previously was treated with ESIs. She is offered a SCS but the MRI restrictions could be a major problem. I discussed this with Dr. Fraga. --Her anorexia has resolved off of HM on MS instead. Originally documented as Lumbar back pain. 5Data migrated from [email or web address] on 10/03/15. The frequent use of imitrex inj. has likely led to overuse headache again. Originally documented as Medication overuse headache. 6Data migrated from [email or web address] on 10/03/15. Reduced now. Originally documented as Chronic migraine. 8Data migrated from [email or web address] on 10/03/15. Again. We will bridge therapy stopping imitrex then treat with DHE migraine protocol. She may not use the injections within 24 hours of DHE treatment and then would do best to minimize the headache treatment to 1/week. Originally documented as Status migrainosus. 9Data migrated from [email or web address] on 10/03/15. Originally documented as Status migrainosus. Allergies, Adverse Reactions, Alerts Substance Reaction Severity Status codeine1 Active meperidine2 Active 1Data migrated from [email or web address] on 10/01/16. Originally documented as Codeine Phosphate. 2Data migrated from [email or web address] on 10/01/16. Originally documented as Demerol. Medications [...]
--- OUTSIDE RECORDS SUMMARY | 2018-08-14 08:52 | XMS REPORT | Summary of Care ---
Author Author [facility] Organization [facility] Address Unknown Phone Unavailable Encounter HQ Surinder(FIN) [id number] Date(s): 11/20/17 - 11/21/17 [facility] [address] [place] [phone] Vital Signs No data available for this [...] Resolved migrainosus(Confirme d)8, 9 1Data migrated from [employer] on 10/03/15. Refractory back pain on PM [...] as Low back pain. 2Data migrated from [employer] on 10/03/15. 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 There is no interval worsening since I last saw her.--She is on Gilenya and is now JCV- Originally documented as Multiple sclerosis. 3Data migrated from [employer] on 10/03/15. Currently doing well. But no longer under PM care. Originally documented as Lumbar back pain. 4Data migrated from [employer] on 10/03/15. Refractory back pain on PM via Dr. Fraga. She is on chronic opiods and previously was treated with ESIs. She is offered a SCS but the MRI restrictions could be a major problem. I discussed this with Dr. Fraga. --Her anorexia has resolved off of HM on MS instead. Originally documented as Lumbar back pain. 5Data migrated from [employer] on 10/03/15. The frequent use of imitrex inj. has likely led to overuse headache again. Originally documented as Medication overuse headache. 6Data migrated from [employer] on 10/03/15. Reduced now. Originally documented as Chronic migraine. 8Data migrated from [employer] on 10/03/15. Again. We will bridge therapy stopping imitrex then treat with DHE migraine protocol. She may not use the injections within 24 hours of DHE treatment and then would do best to minimize the headache treatment to 1/week. Originally documented as Status migrainosus. 9Data migrated from [employer] on 10/03/15. Originally documented as Status migrainosus. Allergies, Adverse Reactions, Alerts Substance Reaction Severity Status codeine1 Active meperidine2 Active 1Data migrated from [employer] on 10/01/16. Originally documented as Codeine Phosphate. 2Data migrated from [employer] on 10/01/16. Originally documented as Demerol. Medications Imitrex Statdose 6 mg/0.5 mL subcutaneous solution See Instructions, # 27 mL, INJECT 0.5ML DIRECTED, [facility] [id number] Start Date: 11/20/17 Stop Date: 11/20/17 Status: Discontinued Results No [...]
--- OUTSIDE RECORDS SUMMARY | 2018-08-14 08:52 | XMS REPORT ---
Author Author Dr. Jose Antonio Roldan Organization [employer] Address Unknown Phone Unavailable Care Team Providers Care Template Clerk Name Role Phone Dr. Jose Antonio Roladn CP Unavailable Encounters Encounter Location Date 3 mo f/u Jose Antonio [place], [place] February 18, 2015 Cycling migraine Jose Antonio Roldan MD, [place] March 07, 2015 3 mo F/U Jose Antonio Roldan MD, [place] May 19, 2015 Unknown Jose Antonio Roldan MD, [place] Jun 20, 2015 3 month follow up Jose Antonio Roldan MD, [place] November 18, 2014 Migraine Jose Antonio Roldan MD, [place] January 12, 2015 Medrol rx request Jose Antonio Roldan MD, [place] January 27, 2015 Carolyn DESAI Req Jose Antonio Roldan MD, [place] Jul 20, 2015 Imitrex Jose Antonio Roldan MD, [place] Jun 29, 2015 3 month f/u Jose Antonio Roldan MD, [place] Aug 31, 2015 Other Jose Antonio Roldan MD, [place] January 30, 2016 Valacyclovir Jose Antonio Roldan MD, [place] January 17, 2016 Migraine Jose Antonio Roldan MD, [place] January 24, 2016 Donovan Roldan MD, [place] December 06, 2015 Shingles Jose Antonio Roldan MD, [place] December 19, 2015 Carolyn Refill Jose Antonio Roldan MD, [place] Sep 26, 2015 3 month f/u Jose Antonio Roldan MD, [place] November 30, 2015 Problems Problem Type Condition ICD-9 Code Onset Dates Condition Status Problem Medication overuse headache G44.40 Active Problem Lumbar back pain M54.5 Active Problem Status migrainosus G43.901 Active Problem Lumbar back pain 724.2 Active Problem Status migrainosus 346.20 Active Problem Multiple sclerosis G35 Active Problem Chronic migraine G43.709 Active Social History Social History Element Qualifiers Date Reported Highest level of education completed: . 2 years of College November 30, 2015 Tobacco Use: . Are you a: current smoker, Additional Findings: Tobacco Non-User Ex-moderate cigarette smoker (10-19/day) November 30, 2015 Use of recreational / street drugs? . Answer: No November 30, 2015 Marital Status: . /Single November 30, 2015 Caffeine intake? . Status: Yes, What type: Coffee, Tea, Soft Drinks 3 servings a day November 30, 2015 Do you exercise? . Answer: No November 30, 2015 Do you drink alcohol? . Status: No November 30, 2015 Occupation: . Unemployed November 30, 2015 Summary Purpose [employer] Submission
--- OUTSIDE RECORDS SUMMARY | 2018-08-14 08:52 | XMS REPORT ---
Author Author Dr. Jose Antonio Roldan Organization [employer] Address Unknown Phone Unavailable Care Team Providers Care Weed Cutter Name Role Phone Dr. Jose Antonio Roldan CP Unavailable Encounters Encounter Location Date 3 [...] Antonio Roldan MD, [place] Aug 31, 2015 Valacyclovir Jose Antonio Roldan MD, [place] January 17, 2016 Migraine Jose Antonio Roldan MD, [place] January 24, 2016 Other Jose Antonio Roldan MD, [place] December 06, 2015 Shingles [...]
--- OUTSIDE RECORDS SUMMARY | 2018-08-14 08:52 | XMS REPORT | Summary of Care ---
Author Author [facility] Outpatient Imaging [facility]patient [facility] Address Unknown Phone Unavailable Encounter HQ Encntr_alias(FIN) [id number] Date(s): 09/28/16 - 09/28/16 [facility] Outpatient Imaging [facility] [address], [address] [place], [place] [address] [phone] Discharge Disposition: Home or Self Care Attending [...]
--- OUTSIDE RECORDS SUMMARY | 2018-08-14 08:52 | XMS REPORT | Summary of Care ---
Author Author [facility] Organization [facility] Address Unknown Phone Unavailable Encounter HQ Surinder(FIN) [id number] Date(s): 03/18/18 - 03/18/18 [facility] [address], [address] [place] [address] [phone] Discharge Disposition: Home or Self Care Attending Physician: Sanket Vines MD Referring Physician: Liu Luo MD Vital Signs Most recent to 1 oldest [Reference Range]: Height 170.18 cm (03/18/18 10:52 AM) Blood Pressure 104/68 mmHg [90-140/60-90 mmHg] (03/18/18 10:52 AM) Peripheral Pulse 85 bpm Rate [60-100 bpm] (03/18/18 10:52 AM) Weight 54.545 kg (03/18/18 10:52 AM) Body Mass Index 18.83 m2 (03/18/18 10:52 AM) Problem List Condition Effective Dates Status Health [...] Resolved migrainosus(Confirme d)8, 9 1Data migrated from [employer] on 10/03/15. Refractory back pain on PM [...] as Low back pain. 2Data migrated from [employer] on 10/03/15. 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 There is no interval worsening since I last saw her.--She is on Gilenya and is now JCV- Originally documented as Multiple sclerosis. 3Data migrated from [employer] on 10/03/15. Currently doing well. But no longer under PM care. Originally documented as Lumbar back pain. 4Data migrated from [employer] on 10/03/15. Refractory back pain on PM via Dr. Fraga. She is on chronic opiods and previously was treated with ESIs. She is offered a SCS but the MRI restrictions could be a major problem. I discussed this with Dr. Fraga. --Her anorexia has resolved off of HM on MS instead. Originally documented as Lumbar back pain. 5Data migrated from [employer] on 10/03/15. The frequent use of imitrex inj. has likely led to overuse headache again. Originally documented as Medication overuse headache. 6Data migrated from [employer] on 10/03/15. Reduced now. Originally documented as Chronic migraine. 8Data migrated from [employer] on 10/03/15. Again. We will bridge therapy stopping imitrex then treat with DHE migraine protocol. She may not use the injections within 24 hours of DHE treatment and then would do best to minimize the headache treatment to 1/week. Originally documented as Status migrainosus. 9Data migrated from [employer] on 10/03/15. Originally documented as Status migrainosus. Allergies, Adverse Reactions, Alerts Substance Reaction Severity Status codeine1 Active meperidine2 Active 1Data migrated from [employer] on 10/01/16. Originally documented as Codeine Phosphate. 2Data migrated from [employer] on 10/01/16. Originally documented as Demerol. Medications No Known Medications Results No data available for this section [...] Reg Smoking Cessation Counseling No entered on: 03/18/18 Assessment and Plan No data available for this section
--- OUTSIDE RECORDS SUMMARY | 2018-08-14 08:52 | XMS REPORT ---
Author Author Dr. Jose Antonio Roldan Organization [employer] Address Unknown Phone Unavailable Care Team Providers Care Transitions Manager Rn Name Role Phone Dr. Jose Antonio Roldan [...] Antonio Roldan MD, PA Jul 20, 2015 Migraine Jose Antonio Roldan MD, PA Jun 05, 2016 Imitrex Jose Antonio Roldan MD, PA Jun 29, 2015 3 month f/u Jose Antonio Roldan MD, PA Aug 31, 2015 Donovan Roldan MD, PA January 30, 2016 3 month f/u Jose Antonio Roldan MD, [place] March 06, 2016 Valacyclovir Jose Antonio Roldan MD, PA January 17, 2016 Migraine Jose Antonio Roldan MD, PA January 24, 2016 Donovan Roldan MD, PA December 06, 2015 Shingles Jose Antonio Roldan MD, PA December 19, 2015 Carolyn Refill Jose Antonio Roldan MD, [place] Sep 26, 2015 3 month f/u Jose Antonio Roldan MD, PA November 30, 2015 Brand/Generic Sumatriptan Jose Antonio Roldan MD, [place] May 15, 2016 Problems Problem Type Condition ICD-9 Code Onset [...] education completed: . 2 years of College March 06, 2016 Tobacco Use: . Are you a: current smoker, Additional Findings: Tobacco Non-User Ex-moderate cigarette smoker (10-19/day) March 06, 2016 Use of recreational / street drugs? . Answer: No March 06, 2016 Marital Status: . /Single March 06, 2016 Caffeine intake? . Status: Yes, What type: Coffee, Tea, Soft Drinks 3 servings a day March 06, 2016 Do you exercise? . Answer: No March 06, 2016 Do you drink alcohol? . Status: No March 06, 2016 Occupation: . Unemployed March 06, 2016 Summary Purpose [employer] Submission
--- OUTSIDE RECORDS SUMMARY | 2018-08-14 08:52 | XMS REPORT ---
Author Author Dr. Jose Antonio Roldan Organization [employer] Address Unknown Phone Unavailable Care Team Providers Care Industrial Accountant Name Role Phone Dr. Jose Antonio Roldan [...] Antonio Roldan MD, PA January 17, 2016 Other Jose Antonio Roldan MD, PA [...] G35 Active Problem Chronic migraine G43.709 Active Medications Medication Code System Code Instructions Start Date End Date Status Dosage Spiriva HandiHaler [facility] [address]-41 18 MCG Inhalation Once a day Active 1 capsule Ad[facility]all [facility]R [facility] [address]-10 30 MG Orally Once a day Active 1 capsule in the morning Morphine Sulfate [facility] [address]-42 15 MG Orally twice a day (bid) Active 2 tablets Valium [facility] [address]-63 5 MG Orally Active 1 tablet as needed Gilenya [facility] [address]-82 0.5 MG Orally Once a day Active 1 capsule Tizanidine HCl [facility] [address]-61 2 MG Orally once every night Active 1 tablet Imitrex [facility] [address]-08 6 MG/0.5ML Injection Active as directed Testosterone [facility] [address]-13 100 MG/ML Intramuscular Monthly Active inject Linzess [facility] [address]-17 290 MCG Orally Once a day Active 1 capsule Dexilant [facility] [address]-75 60 MG Orally Twice a day Active 1 capsule Abilify [facility] [address]-55 5 MG Orally Once a day Active 1 tablet Meclizine HCl [facility] [address]-86 25 MG Orally as needed (prn) Active 1 tablet as needed Valacyclovir HCl [facility] [address]-76 1 GM Orally every 24 hrs Jul 15, 2016 Active 1 tablet Asacol HD [facility] [address]-96 800 MG Orally Three times a day Active 2 tablets Cyanocobalamin [facility] [address]-09 1000 MCG/ML Injection Active 1 ml Dicyclomine HCl [facility] [address]-43 20 MG Orally Three times a day Active 1 tablet Cymbalta [facility] [address]-42 60 MG Orally Once a day Active 3 tablets Zofran [facility] [address]-14 8 MG Orally As needed Active 1 tablet Social History Social History Element Qualifiers Date [...]
--- OUTSIDE RECORDS SUMMARY | 2018-08-14 08:52 | XMS REPORT ---
Author Author Dr. Jose Antonio Roldan Organization [employer] Address Unknown Phone Unavailable Care Team Providers Care Registered Phlebotomist Part Time Name Role Phone Dr. Jose Antonio Roldan [...] 2015 Other Jose Antonio Roldan MD, PA December 06, 2015 Carolyn Refill Jose Antonio Roldan MD, [...]
--- OUTSIDE RECORDS SUMMARY | 2018-08-14 08:52 | XMS REPORT | Summary of Care ---
Author Author [facility] Outpatient Imaging [facility]patient [facility] Address Unknown Phone Unavailable Encounter HQ Encntr_alikehinde(FIN) [id number] Date(s): 09/20/16 - 09/20/16 [facility] Outpatient Imaging [facility] [address], [address] [place], [place] [address] [phone] Discharge Disposition: Home or Self Care Attending [...]
--- OUTSIDE RECORDS SUMMARY | 2018-08-14 08:52 | XMS REPORT ---
Author Author Dr. Jose Antonio Roldan Organization [employer] Address Unknown Phone Unavailable Care Team Providers Care Insurance Agency Sales Manager Name Role Phone Dr. Jose Antonio Roldan [...] Antonio Roldan MD, [place] January 30, 2016 3 [...]
--- OUTSIDE RECORDS SUMMARY | 2018-08-14 08:52 | XMS REPORT ---
Author Author Dr. Jose Antonio Roldan Organization [employer] Address Unknown Phone Unavailable Care Team Providers Care Sports Medicine Coordinator Name Role Phone Dr. Jose Antonio Roldan [...] Roldan MD, PA December 19, 2015 Carolyn Roldan MD, PA Sep 26, 2015 3 [...] Instructions Start Date End Date Status Dosage [facility] [address]-02 20 MG Orally Three times a day Active 1 tablet Abilify [facility] [address]-65 5 MG Orally Once a day Active 1 tablet [facility] [address]-64 25 MG Orally as needed (prn) Active 1 tablet as needed Testosterone [facility] [address]-14 100 MG/ML Intramuscular Monthly Active inject Cymbalta [facility] [address]-30 60 MG Orally Once a day Active 3 tablets Tizanidine HCl [facility] [address]-25 2 MG Orally once every night Active 1 tablet Valium [facility] [address]-73 5 MG Orally Active 1 tablet as needed Gilenya [facility] [address]-24 0.5 MG Orally Once a day Active 1 capsule Linzess [facility] [address]-88 290 MCG Orally Once a day Active 1 capsule Cyanocobalamin [facility] [address]-17 1000 MCG/ML Injection Active 1 ml Morphine Sulfate [facility] [address]-41 15 MG Orally twice a day (bid) Active 2 tablets Adderall XR [facility] [address]-43 30 MG Orally Once a day Active 1 capsule in the morning Imitrex [facility] [address]-11 6 MG/0.5ML Injection Active as directed Zofran [facility] [address]-61 8 MG Orally As needed Active 1 tablet Valacyclovir HCl [facility] 10002875582 1 Orally Once a day Active 1 tablet Spiriva HandiHaler [facility] [address]-88 18 MCG Inhalation Once a day Active 1 capsule Dexilant [facility] [address]-72 60 MG Orally Twice a day Active 1 capsule Asacol HD [facility] [address]-39 800 MG Orally Three times a day Active 2 tablets Social History Social History Element Qualifiers Date [...]
--- OUTSIDE RECORDS SUMMARY | 2018-08-14 08:52 | XMS REPORT | Summary of Care ---
Author Author [facility] Organization [facility] Address Unknown Phone Unavailable Encounter DWIGHT Cadena(YUMI) [id number] Date(s): 02/25/18 - 02/25/18 [facility] [address] [place] [phone] Discharge Disposition: Home or Self Care Attending Physician: Jose Antonio Roldan MD Vital Signs Most recent to 1 oldest [Reference Range]: Height 170.18 cm (02/25/18 1:23 PM) Blood Pressure 125/89 mmHg [90-140/60-90 mmHg] (02/25/18 1:23 PM) Peripheral Pulse 85 bpm Rate [60-100 bpm] (02/25/18 1:23 PM) Weight 50.364 kg (02/25/18 1:23 PM) Body Mass Index 17.39 m2 (02/25/18 1:23 PM) Problem List Condition Effective Dates Status [...] Resolved migrainosus(Confirme d)8, 9 1Data migrated from [employer] on 10/03/15. Refractory back pain on PM [...] as Low back pain. 2Data migrated from [employer] on 10/03/15. 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 There is no interval worsening since I last saw her.--She is on Gilenya and is now JCV- Originally documented as Multiple sclerosis. 3Data migrated from [employer] on 10/03/15. Currently doing well. But no longer under PM care. Originally documented as Lumbar back pain. 4Data migrated from [employer] on 10/03/15. Refractory back pain on PM via Dr. Fraga. She is on chronic opiods and previously was treated with ESIs. She is offered a SCS but the MRI restrictions could be a major problem. I discussed this with Dr. Fraga. --Her anorexia has resolved off of HM on MS instead. Originally documented as Lumbar back pain. 5Data migrated from [employer] on 10/03/15. The frequent use of imitrex inj. has likely led to overuse headache again. Originally documented as Medication overuse headache. 6Data migrated from [employer] on 10/03/15. Reduced now. Originally documented as Chronic migraine. 8Data migrated from [employer] on 10/03/15. Again. We will bridge therapy stopping imitrex then treat with DHE migraine protocol. She may not use the injections within 24 hours of DHE treatment and then would do best to minimize the headache treatment to 1/week. Originally documented as Status migrainosus. 9Data migrated from [employer] on 10/03/15. Originally documented as Status migrainosus. Allergies, Adverse Reactions, Alerts Substance Reaction Severity Status codeine1 Active meperidine2 Active 1Data migrated from [employer] on 10/01/16. Originally documented as Codeine Phosphate. 2Data migrated from [employer] on 10/01/16. Originally documented as Demerol. Medications No Known Medications Results No data available for this section Immunizations No data available for this section Procedures Procedure Date Related Diagnosis Body Site Status Laminectomy1 1998 Completed Caesarean section 06/16/86 Completed Appendectomy 1980 Completed Hysterectomy Completed 1back Social History Social [...]
--- OUTSIDE RECORDS SUMMARY | 2018-08-14 08:52 | XMS REPORT ---
Author Author Dr. Jose Antonio Roldan Organization [employer] Address Unknown Phone Unavailable Care Team Providers Care Philosophy Instructor Name Role Phone Dr. Jose Antonio Roldan [...] Antonio Roldan MD, PA Jul 20, 2015 3 month f/u Jose Antonio Roldan MD, PA Jun 06, 2016 Migraine Jose Antonio Roldan MD, PA Jun [...] Antonio Roldan MD, PA January 24, 2016 Dr. Graciela Roldan MD, PA Jun 13, 2016 Donovan Roldan MD, PA December 06, 2015 Dallin Roldan MD, PA December 19, 2015 Carolyn Geigerill Jose Antonio Roldan MD, PA Sep 26, [...] education completed: . 2 years of College Jun 06, 2016 Tobacco Use: . Are you a: current smoker, Additional Findings: Tobacco Non-User Ex-moderate cigarette smoker (10-19/day) Jun 06, 2016 Use of recreational / street drugs? . Answer: No Jun 06, 2016 Marital Status: . /Single Jun 06, 2016 Caffeine intake? . Status: Yes, What type: Coffee, Tea, Soft Drinks 3 servings a day Jun 06, 2016 Do you exercise? . Answer: No Jun 06, 2016 Do you drink alcohol? . Status: No Jun 06, 2016 Occupation: . Unemployed Jun 06, 2016 Summary Purpose [employer] Submission
--- OUTSIDE RECORDS SUMMARY | 2018-08-14 08:52 | XMS REPORT ---
Author Author Dr. Jose Antonio Roldan Organization [employer] Address Unknown Phone Unavailable Care Team Providers Care Aluminum Hydroxide Process Operator Name Role Phone Dr. Jose Antonio Roldan CP Unavailable Allergies, Adverse Reactions, Alerts Substance Reaction Event Type Codeine Phosphate Info Not Available Drug Allergy Encounters Encounter Location Date 3 mo f/u [...] Condition ICD-9 Code Onset Dates Condition Status Assessment Lumbar back pain M54.5 Active Assessment Multiple sclerosis G35 Active Assessment Chronic migraine G43.709 Active Problem Medication overuse headache G44.40 Active Problem Lumbar back pain M54.5 Active Problem Status migrainosus G43.901 Active Problem Lumbar back pain 724.2 Active Problem Status migrainosus 346.20 Active Problem Multiple sclerosis G35 Active Problem Chronic migraine G43.709 Active Medications Medication Code System Code Instructions Start Date End Date Status Dosage Adderall XR [facility] [address]-86 30 MG Orally Once a day Active 1 capsule in the morning Dicyclomine HCl [facility] [address]-25 20 MG Orally Three times a day Active 1 tablet Abilify [facility] [address]-41 5 MG Orally Once a day Active 1 tablet Linzess [facility] [address]-89 290 MCG Orally Once a day Active 1 capsule Zofran [facility] [address]-79 8 MG Orally As needed Active 1 tablet Cymbalta [facility] [address]-92 60 MG Orally Once a day Active 3 tablets Valacyclovir HCl [facility] [address]-22 1 GM Orally every 24 hrs Jul 15, 2016 Active 1 tablet Valium [facility] [address]-60 5 MG Orally Active 1 tablet as needed Gilenya [facility] [address]-72 0.5 MG Orally Once a day Active 1 capsule Tizanidine HCl [facility] [address]-78 2 MG Orally once every night Active 1 tablet Asacol HD [facility] [address]-05 800 MG Orally Three times a day Active 2 tablets Meclizine HCl [facility] [address]-01 25 MG Orally as needed (prn) Active 1 tablet as needed Imitrex [facility] [address]-32 6 MG/0.5ML Injection Active as directed Morphine Sulfate [facility] [address]-50 15 MG Orally twice a day (bid) Active 2 tablets Testosterone [facility] [address]-33 100 MG/ML Intramuscular Once every 3 months Active inject Tramadol HCl [facility] [address]-20 50 MG Orally every 4 hrs Active 1 tablet as needed Spiriva HandiHaler [facility] [address]-23 18 MCG Inhalation Once a day Active 1 capsule Dexilant [facility] [address]-24 60 MG Orally Twice a day Active 1 capsule Cyanocobalamin [facility] [address]-74 1000 MCG/ML Injection Active 1 ml Social History Social History Element Qualifiers Date [...] 2016 Occupation: . Unemployed March 06, 2016 Vital Signs Date/Time: March 06, 2016 Weight 116.4 lbs Height 67 in Cardiac Monitoring Heart Rate 81 /min Blood Pressure Diastolic 97 mm Hg Blood Pressure Systolic 149 mm Hg Summary Purpose [employer]Works Submission
--- OUTSIDE RECORDS SUMMARY | 2018-08-14 08:52 | XMS REPORT ---
Author Author Dr. Jose Antonio Roldan Organization [employer] Address Unknown Phone Unavailable Care Team Providers Care Fire Protection Designer Name Role Phone Dr. Jose Antonio Roldan [...] MD, PA January 27, 2015 Carolyn DESAI Recosmo Roldan MD, PA Jul 20, 2015 3 [...] Donovan Roldan MD, PA December 06, 2015 3 month f/u Jose Antonio Roldan MD, PA Aug 29, 2016 Dallni Roldan MD, PA December 19, 2015 Migraine Jose Antonio Roldan MD, PA Sep 04, 2016 Carolyn Roldan MD, PA Sep 26, 2015 [...] Instructions Start Date End Date Status Dosage Valacyclovir HCl [facility] 32537164262 1 GM Active Take 1 tablet by mouth every day Valium [facility] [address]-84 5 MG Orally Active 1 tablet as needed Spiriva HandiHaler [facility] [address]-63 18 MCG Inhalation Once a day Active 1 capsule Zofran [facility] [address]-51 8 MG Orally As needed Active 1 tablet Testosterone [facility] [address]-36 100 MG/ML Intramuscular Once every 3 months Active inject Calcium Unknown 0 Orally Once a day Active 1 tablet Reclast [facility] [address]-42 5 MG/100ML Intravenous Once a year for osteoporosis Aug 28, 2016 Active Unknown Dicyclomine HCl [facility] [address]-52 20 MG Orally Three times a day Active 1 tablet Imitrex [facility] [address]-31 6 MG/0.5ML Injection as needed for headache Active as directed Linzess [facility] [address]-24 290 MCG Orally Once a day Active 1 capsule Meclizine HCl [facility] [address]-79 25 MG Orally as needed (prn) Active 1 tablet as needed Vitamin D [facility] [address]-53 1000 UNIT Orally Once a day Active 1 tablet Gilenya [facility] [address]-52 0.5 MG Orally Once a day Active 1 capsule Sumatriptan Succinate [facility] [address]-93 6 Active USE DIRECTED NEEDED FOR HEADACHE Adderall XR [facility] [address]-31 30 MG Orally Once a day Active 1 capsule in the morning Abilify [facility] [address]-54 5 MG Orally Once a day Active 1 tablet Fetzima [facility] [address]-53 120 MG Orally Once a day Active 1 capsule Probiotic [facility] 33842-16239 Orally Once a day Active 1 capsule Asacol HD [facility] [address]-14 800 MG Orally Twice a day Active 3 tablets Dexilant [facility] [address]-86 60 MG Orally Twice a day Active 1 capsule Tizanidine HCl [facility] [address]-77 2 MG Orally once every night Active 1 tablet Social History Social History Element Qualifiers Date Reported Highest level of education completed: . Some college Aug 29, 2016 Tobacco Use: . Are you a: current smoker quits every now and then, Additional Findings: Tobacco User Light cigarette smoker ((1-9 cigs/day) Aug 29, 2016 Use of recreational / street drugs? . Answer: No Aug 29, 2016 Marital Status: . /Single Aug 29, 2016 Caffeine intake? . Status: Yes, What type: Coffee, Tea, Soft Drinks 3 servings a day Aug 29, 2016 Do you exercise? . Answer: No Aug 29, 2016 Do you drink alcohol? . Status: No Aug 29, 2016 Occupation: . Unemployed Aug 29, 2016 Summary Purpose [employer] Submission
--- OUTSIDE RECORDS SUMMARY | 2018-08-14 08:52 | XMS REPORT | Summary of Care ---
Author Author [facility] Organization [facility] Address Unknown Phone Unavailable Encounter HQ Surinder(FIN) [id number] Date(s): 02/26/18 - 02/27/18 [facility] [address] [place] [phone] Vital Signs No data available for this [...] Resolved migrainosus(Confirme d)8, 9 1Data migrated from [employer] on 10/03/15. Refractory back pain on PM [...] as Low back pain. 2Data migrated from [employer] on 10/03/15. 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 There is no interval worsening since I last saw her.--She is on Gilenya and is now JCV- Originally documented as Multiple sclerosis. 3Data migrated from [employer] on 10/03/15. Currently doing well. But no longer under PM care. Originally documented as Lumbar back pain. 4Data migrated from [employer] on 10/03/15. Refractory back pain on PM via Dr. Fraga. She is on chronic opiods and previously was treated with ESIs. She is offered a SCS but the MRI restrictions could be a major problem. I discussed this with Dr. Fraga. --Her anorexia has resolved off of HM on MS instead. Originally documented as Lumbar back pain. 5Data migrated from [employer] on 10/03/15. The frequent use of imitrex inj. has likely led to overuse headache again. Originally documented as Medication overuse headache. 6Data migrated from [employer] on 10/03/15. Reduced now. Originally documented as Chronic migraine. 8Data migrated from [employer] on 10/03/15. Again. We will bridge therapy stopping imitrex then treat with DHE migraine protocol. She may not use the injections within 24 hours of DHE treatment and then would do best to minimize the headache treatment to 1/week. Originally documented as Status migrainosus. 9Data migrated from [employer] on 10/03/15. Originally documented as Status migrainosus. Allergies, Adverse Reactions, Alerts Substance Reaction Severity Status codeine1 Active meperidine2 Active 1Data migrated from [employer] on 10/01/16. Originally documented as Codeine Phosphate. 2Data migrated from [employer] on 10/01/16. Originally documented as Demerol. Medications [...]
--- OUTSIDE RECORDS SUMMARY | 2018-08-14 08:52 | XMS REPORT ---
Author Author Dr. Jose Antonio Roldan Organization [employer] Address Unknown Phone Unavailable Care Team Providers Care Steam Flattener Name Role Phone Dr. Jose Antonio Roldan [...] Instructions Start Date End Date Status Dosage Imitrex [facility] [address]-17 6 MG/0.5ML Injection Active as directed Tramadol HCl [facility] [address]-90 50 MG Orally every 4 hrs Inactive 1 tablet as needed Valium [facility] [address]-73 5 MG Orally Active 1 tablet as needed Valacyclovir HCl [facility] [address]-55 1 GM Orally every 24 hrs Jul 15, 2016 Active 1 tablet Asacol HD [facility] [address]-62 800 MG Orally Three times a day Active 2 tablets Adderall XR [facility] [address]-22 30 MG Orally Once a day Active 1 capsule in the morning Sumatriptan Succinate [facility] ____ 6 Active USE DIRECTED NEEDED FOR HEADACHE Dexilant [facility] [address]-14 60 MG Orally Twice a day Active 1 capsule Gilenya [facility] [address]-78 0.5 MG Orally Once a day Active 1 capsule Tizanidine HCl [facility] [address]-52 2 MG Orally once every night Active 1 tablet Cyanocobalamin [facility] [address]-39 1000 MCG/ML Injection Active 1 ml Testosterone [facility] ____ 100 MG/ML Intramuscular Once every 3 months Active inject Cymbalta [facility] [address]-07 60 MG Orally Once a day Active 3 tablets Dicyclomine HCl [facility] [address]-51 20 MG Orally Three times a day Active 1 tablet Zofran [facility] [address]-92 8 MG Orally As needed Active 1 tablet Linzess [facility] [address]-67 290 MCG Orally Once a day Active 1 capsule Spiriva HandiHaler [facility] [address]-67 18 MCG Inhalation Once a day Active 1 capsule Abilify [facility] [address]-48 5 MG Orally Once a day Active 1 tablet Meclizine HCl [facility] [address]-05 25 MG Orally as needed (prn) Active 1 tablet as needed Social History Social History Element Qualifiers Date [...] 2016 Occupation: . Unemployed Jun 06, 2016 Vital Signs Date/Time: Jun 06, 2016 Weight 116.2 lbs Height 67 in Cardiac Monitoring Heart Rate 91 /min Blood Pressure Diastolic 96 mm Hg Blood Pressure Systolic 125 mm Hg Summary Purpose eClinicalWorks Submission
--- OUTSIDE RECORDS SUMMARY | 2018-08-14 08:52 | XMS REPORT ---
Author Author Dr. Jose Antonio Roldan Organization [employer] Address Unknown Phone Unavailable Care Team Providers Care Dental Associate Name Role Phone Dr. Jose Antonio Roldan [...] Antonio Roldan MD, PA November 18, 2014 Carolyn Refill Jose Antonio Roldan MD, PA Sep 26, 2015 Migraine Jose Antonio Roldan MD, PA January 12, 2015 3 month f/u Jose Antonio Roldan MD, PA November 30, 2015 Medrol rx request Jose Antonio Roldan MD, PA January 27, 2015 Carolyn DESAI Req Jose Antonio Roldan MD, PA Jul 20, 2015 Imitrex Jose Antonio Roldan MD, PA Jun 29, 2015 3 month f/u Jose Antonio Roldan MD, PA Aug 31, 2015 Problems Problem Type Condition ICD-9 Code Onset Dates Condition Status Assessment Medication overuse headache G44.40 Active Assessment Status migrainosus G43.901 Active Assessment Multiple sclerosis G35 Active Assessment Lumbar back pain M54.5 Active Problem Medication overuse headache G44.40 Active Problem Lumbar back pain M54.5 Active Problem Status migrainosus G43.901 Active Problem Lumbar back pain 724.2 Active Problem Status migrainosus 346.20 Active Problem Multiple sclerosis G35 Active Problem Chronic migraine G43.709 Active Medications Medication Code System Code Instructions Start Date End Date Status Dosage Valium [facility] [address]-30 5 MG Orally Active 1 tablet as needed Spiriva HandiHaler [facility] [address]-13 18 MCG Inhalation Once a day Active 1 capsule Dexilant [facility] [address]-35 60 MG Orally Twice a day Active 1 capsule Asacol HD [facility] [address]-20 800 MG Orally Three times a day Active 2 tablets Meclizine HCl [facility] [address]-68 25 MG Orally as needed (prn) Active 1 tablet as needed Tizanidine HCl [facility] [address]-06 2 MG Orally once every night Active 1 tablet Dicyclomine HCl [facility] [address]-88 20 MG Orally Three times a day Active 1 tablet Valacyclovir HCl [facility] 01012976727 1 Orally Once a day Active 1 tablet Testosterone [facility] [address]-53 100 MG/ML Intramuscular Monthly Active inject Imitrex [facility] [address]-82 6 MG/0.5ML Injection Active as directed Gilenya [facility] [address]-81 0.5 MG Orally Once a day Active 1 capsule Morphine Sulfate [facility] [address]-84 15 MG Orally twice a day (bid) Active 2 tablets Hydromorphone HCl [facility] [address]-98 2 MG Orally every 6 hrs Active 1 tablet as needed Cymbalta [facility] [address]-97 60 MG Orally Once a day Active 3 tablets Adderall XR [facility] [address]-29 30 MG Orally Once a day Active 1 capsule in the morning Linzess [facility] [address]-64 290 MCG Orally Once a day Active 1 capsule Medrol (Sonu) [facility] [address]-75 4 mg Orally as directed November 30, 2015 December 07, 2015 Active as directed Abilify [facility] [address]-07 5 MG Orally Once a day Active 1 tablet Zofran [facility] [address]-46 8 MG Orally As needed Active 1 tablet Cyanocobalamin [facility] [address]-23 1000 MCG/ML Injection Active 1 ml Social [...] 2015 Occupation: . Unemployed November 30, 2015 Vital Signs Date/Time: November 30, 2015 Weight 109.8 lbs Height 67 in Cardiac Monitoring Heart Rate 77 /min Blood Pressure Diastolic 87 mm Hg Blood Pressure Systolic 129 mm Hg Summary Purpose eClinicalWorks Submission
--- OUTSIDE RECORDS SUMMARY | 2018-08-14 08:53 | XMS REPORT ---
Author Author Dr. Jose Antonio Roldan Organization [employer] Address Unknown Phone Unavailable Care Team Providers Care Carbon Sequestration Plant Engineer Name Role Phone Dr. Jose Antonio Roldan CP Unavailable Encounters Encounter Location Date Carolyn Roldan MD, PA Jul 20, 2015 Donovan Roldan MD, PA January 30, [...] Antonio Roldan MD, PA May 15, 2016 3 mo f/u Jose Antonio Roldan MD, [...] Antonio Roldan MD, PA January 27, 2015 3 month f/u Jose Antonio Roldan MD, PA Jun 06, 2016 Migraine Jose Antonio Roldan MD, PA Jun 05, 2016 Imitrex Jose Antonio Roldan MD, PA Jun 29, 2015 3 month f/u Jose Antonio Roldan MD, PA Aug 31, 2015 Dr. Graciela Roldan MD, PA Jun 13, 2016 3 month f/u Jose Antonio Roldan MD, PA Aug 29, 2016 Migraine Jose Antonio Roldan MD, PA Sep 04, 2016 Pluracy Jose Antonio Roldan MD, PA Sep 25, 2016 Problems Problem Type Condition ICD-9 Code [...]
--- OUTSIDE RECORDS SUMMARY | 2018-08-14 08:53 | XMS REPORT ---
Author Author Dr. Jose Antonio Roldan Organization [employer] Address Unknown Phone Unavailable Care Team Providers Care Front Office Spec Name Role Phone Dr. Jose Antonio Roldan CP Unavailable Allergies, Adverse Reactions, Alerts Substance Reaction Event Type Demerol Info Not Available Drug Allergy Codeine Phosphate Info Not Available Drug Allergy [...] Roldan MD, PA January 27, 2015 Carolyn Roldan MD, PA Jul 20, 2015 3 [...] Antonio Roldan MD, PA Aug 29, 2016 Dallin Roldan MD, PA December 19, 2015 [...] Instructions Start Date End Date Status Dosage Gilenya [facility] [address]-98 0.5 MG Orally Once a day Active 1 capsule Sumatriptan Succinate [facility] [address]-87 6 Active USE DIRECTED NEEDED FOR HEADACHE Fetzima [facility] [address]-68 120 MG Orally Once a day Active 1 capsule Imitrex [facility] [address]-00 6 MG/0.5ML Injection Active as directed Cymbalta [facility] [address]-38 60 MG Orally Once a day Active 3 tablets Linzess [facility] [address]-02 290 MCG Orally Once a day Active 1 capsule Spiriva HandiHaler [facility] [address]-80 18 MCG Inhalation Once a day Active 1 capsule Tizanidine HCl [facility] [address]-71 2 MG Orally once every night Active 1 tablet Reclast [facility] [address]-48 5 MG/100ML Intravenous Once a year for osteoporosis Aug 28, 2016 Active Unknown Testosterone [facility] [address]-84 100 MG/ML Intramuscular Once every 3 months Active inject Cyanocobalamin [facility] [address]-55 1000 MCG/ML Injection Active 1 ml Zofran [facility] [address]-78 8 MG Orally As needed Active 1 tablet Asacol HD [facility] [address]-39 800 MG Orally Twice a day Active 3 tablets Dicyclomine HCl [facility] [address]-96 20 MG Orally Three times a day Active 1 tablet Adderall XR [facility] [address]-91 30 MG Orally Once a day Active 1 capsule in the morning Vitamin D [facility] [address]-64 1000 UNIT Orally Once a day Active 1 tablet Calcium Unknown 0 Orally Once a day Active 1 tablet Abilify [facility] [address]-91 5 MG Orally Once a day Active 1 tablet Dexilant [facility] [address]-47 60 MG Orally Twice a day Active 1 capsule Probiotic [facility] 43314-[address]54 Orally Once a day Active 1 capsule Meclizine HCl [facility] [address]-59 25 MG Orally as needed (prn) Active 1 tablet as needed Valium [facility] [address]-39 5 MG Orally Active 1 tablet as needed Social History [...] 2016 Occupation: . Unemployed Aug 29, 2016 Vital Signs Date/Time: Aug 29, 2016 Weight 116.6 lbs Height 67 in Cardiac Monitoring Heart Rate 100 /min Blood Pressure Diastolic 91 mm Hg Blood Pressure Systolic 132 mm Hg Summary Purpose [employer] Submission
--- NOTE | 2018-08-14 10:16 | Diagnostic Imaging Report ---
CT BRAIN WO HISTORY: Fall; history of MS COMPARISON: None. TECHNIQUE: Noncontrast axial scans were obtained from skull base to the vertex. Coronal and sagittal reconstructions obtained from the axial data. One or more of the following dose reduction techniques were used: Automated exposure control, adjustment of the mA and/or kV according to patient size, and/or utilization of iterative reconstruction technique. DISCUSSION: Scalp/Skull: Unremarkable. Brain sulci: Mildly prominent. Ventricles: Compensatory dilatation. Extra-axial spaces: No masses or fluid collections. Carotid siphon calcifications are present. Parenchyma: Mild periventricular white matter hypodensities may be due to prior demyelination and/or chronic microvascular ischemic change. Otherwise, no masses, hemorrhage, or large vascular territory acute infarct. Dural sinuses: No abnormal densities. Sellar/Suprasellar region: Intact. Skull base: Intact. Incidental findings: There is mild right posterior ethmoid air cell mucosal thickening. IMPRESSION: 1. No acute intracranial abnormalities. 2. Mild periventricular white matter hypodensities may be due to prior demyelination and/or chronic microvascular ischemic change. 3. Mild generalized cerebral volume loss. Signed by: Dr. Dionisio Maki M.D. on 08/14/2018 10:12 AM
--- NOTE | 2018-08-14 10:20 | Diagnostic Imaging Report ---
CT CERVICAL SPINE WO HISTORY: Fall COMPARISON: Concurrent head CT TECHNIQUE: CT of the cervical spine without contrast. Sagittal and coronal reformations were created. One or more of the following dose reduction techniques were used: Automated exposure control, adjustment of the mA and/or kV according to patient size, and/or utilization of iterative reconstruction technique. Streak artifacts obscure some details. FINDINGS: ACDF changes at C5-C6 are present. Cervical lordosis is straightened. There is no scoliosis or subluxation. No definite acute fracture, compression deformity, or destructive osseous lesions are seen. The craniocervical junction is intact. No gross spinal canal masses are seen. The paravertebral and paraspinal soft tissues are unremarkable. There are mild spondylotic changes above the fusion level. Mild atlantoaxial arthrosis is present as well. Mild bilateral carotid bulb calcifications are present. IMPRESSION: 1. No acute osseous abnormalities. 2. ACDF changes at C5-C6. 3. Mild spondylosis above the fusion level. Signed by: Dr. Dionisio Maki M.D. on 08/14/2018 10:16 AM
[2018-08-14 11:12] LABS: BASOPHILS % 0.3 % (0.0-1.0); EOSINOPHILS # (AUTO) 0.1 (0.0-0.4); EOSINOPHILS % 1.5 % (0.0-6.0); HEMATOCRIT 35.5 % (34.2-44.1); HEMOGLOBIN 11.4 g/dL (12.0-16.0); LYMPHOCYTES # (AUTO) 0.8 (1.0-3.2); LYMPHOCYTES % 10.5 % (18.0-39.1); MEAN CORPUSCULAR HEMOGLOBIN 30.2 pg (28-32); MEAN CORPUSCULAR HGB CONC 32.1 g/dL (31-35); MEAN CORPUSCULAR VOLUME 94.2 fL (81-99); MONOCYTES % 13.3 % (4.4-11.3); NEUTROPHILS # (AUTO) 5.5 (2.1-6.9); PLATELET COUNT 403 x10e3/uL (140-360); RED BLOOD COUNT 3.77 x10e6/uL (3.6-5.1); RED CELL DISTRIBUTION WIDTH 14.4 % (11.7-14.4)
[2018-08-14 11:27] LABS: ALANINE AMINOTRANSFERASE 7 IU/L (0-55); ALKALINE PHOSPHATASE 74 IU/L (40-150); ANION GAP 11.4 mmol/L (8-16); BLOOD UREA NITROGEN 13 mg/dL (7-26); BUN/CREATININE RATIO 14 (6-25); CALCIUM 9.9 mg/dL (8.4-10.2); CARBON DIOXIDE 25 mmol/L (22-29); CHLORIDE 103 mmol/L (98-107); CREATININE, SERUM 0.93 mg/dL (0.57-1.11); EST GLOMERULAR FILTRATION RATE > 60 ML/MIN (60-); GLUCOSE 93 mg/dL (74-118); LIPASE 33 U/L (8-78); POTASSIUM 4.4 mmol/L (3.5-5.1); SODIUM 135 mmol/L (136-145)
[2018-08-14] MEDS ORDERED: TIZANIDINE HCL4 MG PO (13:12)
[2018-08-14] MEDS ORDERED: TIZANIDINE HCL 4 MG TAB PO SCH (13:30)
== END 2018-08-14 13:49 | disposition home or self-care (01) ==
LOC: ER 08:45
DX: S06.0X0A Concussion without loss of consciousness, initial encounter (principal); M54.2 Cervicalgia; W01.0XXA Fall on same level from slipping, tripping and stumbling without subsequent striking against object, initial encounter; Y92.008 Other place in unspecified non-institutional (private) residence as the place of occurrence of the external cause; G35 Multiple sclerosis
CPT/HCPCS: 36415; 70450; 72125; 80053; 83690; 85025; 99283

== ENCOUNTER → 2018-10-22 | Day surgery (SDC) | payer MEDICARE ==
[2018-10-21 14:16] LABS: BASOPHILS % 0.5 % (0.0-1.0); EOSINOPHILS # (AUTO) 0.1 (0.0-0.4); EOSINOPHILS % 2.3 % (0.0-6.0); HEMATOCRIT 35.9 % (34.2-44.1); HEMOGLOBIN 11.5 g/dL (12.0-16.0); LYMPHOCYTES # (AUTO) 0.4 (1.0-3.2); LYMPHOCYTES % 8.7 % (18.0-39.1); MEAN CORPUSCULAR HEMOGLOBIN 29.4 pg (28-32); MEAN CORPUSCULAR VOLUME 91.8 fL (81-99); MONOCYTES # (AUTO) 0.7 (0.2-0.8); MONOCYTES % 16.1 % (4.4-11.3); NEUTROPHILS # (AUTO) 3.1 (2.1-6.9); NEUTROPHILS % 71.9 % (38.7-80.0); PLATELET COUNT 293 x10e3/uL (140-360); RED BLOOD COUNT 3.91 x10e6/uL (3.6-5.1); RED CELL DISTRIBUTION WIDTH 15.1 % (11.7-14.4)
[2018-10-21 14:32] LABS: INR 0.79; PARTIAL THROMBOPLASTIN TIME 28.9 seconds (23.8-35.5); PROTHROMBIN TIME 11.7 seconds (11.9-14.5)
[2018-10-21 14:39] LABS: ALBUMIN/GLOBULIN RATIO 1.4 (0.8-2.0); ANION GAP 14.4 mmol/L (8-16); CALCIUM 9.4 mg/dL (8.4-10.2); CREATININE, SERUM 0.95 mg/dL (0.57-1.11); POTASSIUM 4.4 mmol/L (3.5-5.1)
[2018-10-21 15:01] LABS: BILIRUBIN,DIRECT 0.1 mg/dL (0.0-0.5)
[2018-10-21 15:23] LABS: EOSINOPHILS % (MANUAL) 4 % (0-7); LYMPHOCYTES % (MANUAL) 16 % (19-48); MONOCYTES % (MANUAL) 10 % (3.4-9.0); NEUTROPHILS % (MANUAL) 69 % (40-74)
[2018-10-21 15:24] LABS: ANISOCYTOSIS SLIGHT; PLATELET ESTIMATE ADEQUATE; RBC MORPHOLOGY COMMENT NORMAL
[2018-10-21 15:26] LABS: PLATELET MORPHOLOGY COMMENT FEW LARGE
[~2018-10-22] MED LIST changes: +AMLODIPINE BESYL5 MG PO; +DULOXETINE PO; +LIDOCAINE HCL 2% LOCAL INJ 5 ML SDV VIAL INJ ONE; +PROPOFOL IV EMULSION 10 MG/ML 20 ML VIAL ONE; +TIZANIDINE HCL4 MG PO
--- OUTSIDE RECORDS SUMMARY | 2018-10-22 10:15 | XMS REPORT | Continuity of Care Document ---
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 There is no interval worsening since I last saw her.--S he is on Gilenya and is now JCV- Originally documented as Multiple sclerosis. Juanpablo Farnsworth Low back pain<sup>3, 4</sup> Active 08/29/2016 Problem 03/21/2018 Data migrated from [employer] on 10/03/15. Refractory back pain on PM [...] Resolved 08/29/2016 Problem 03/21/2018 Data migrated from [employer] on 10/03/15. Reduced now. Originally documented as Chronic migraine. 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 There is no interval worsening since I last saw her.--S he is on Gilenya and is now JCV- Originally documented as [facility]. [facility] [place] Low back pain<sup>3, 4</sup> Active 08/29/2016 Problem 02/02/2018 Data migrated from [employer] on 10/03/15. Refractory back pain on PM via Dr. Fraga. She is on chronic opiods and previously was treated with ESIs. She is offered a SCS but the MRI restrictions could be a major problem. I discussed this with Dr. Fraga. --Her anorexia has resolved off of HM on MS instead. Originally documented as Lumbar back pain. RIP [place],[facility], [facility] [place] Migraine<sup>6</sup> Resolved 08/29/2016 Problem 02/02/2018 Data migrated from [employer] on 10/03/15. Reduced now. Originally documented as Chronic migraine. RIP [place],[facility], [facility] [place] G35 - MULTIPLE SCLEROSIS Active 06/07/2016 KALYAND [place] Medication overuse headache<sup>5</sup> Resolved 11/30/2015 Problem 03/21/2018 Data migrated from [facility] on 10/03/15. The frequent use of imitrex inj. has likely led to overuse headache again. Originally documented as Medication overuse headache. Juanpablo Farnsworth Neuro Status migrainosus<sup>8, 9</sup> Resolved 11/30/2015 Problem 03/21/2018 Data migrated from [facility] on 10/03/15. Originally documented as Status migrainosus. Juanpablo Farnsworth Neuro Medication overuse headache<sup>5</sup> Resolved 11/30/2015 Problem 02/02/2018 Data migrated from [employer] on 10/03/15. The frequent use of imitrex inj. has likely led to overuse headache again. Originally documented as Medication overuse headache. RIP [place],[facility], [facility] [place] Status migrainosus<sup>8, 9</sup> Resolved 11/30/2015 Problem 02/02/2018 Data migrated from [employer] on 10/03/15. Originally documented as Status migrainosus. RIP Dillon,[facility], [facility] [place] Backache<sup>1</sup> Resolved 08/31/2015 Problem 03/21/2018 Data migrated from [employer] on 10/03/15. Refractory back pain on PM via Dr. Fraga. She is on chronic opiods and previously was treated with ESIs. She is offered a SCS but the MRI restrictions could be a major problem. I discussed this with Dr. Fraga. --Overall on the current regimen, she is much improved. Her switch from to MA has resolved the anorexia. Originally documented as Low back pain. [facility] Backache<sup>1</sup> Resolved 08/31/2015 Problem 02/02/2018 Data migrated from [employer] on 10/03/15. Refractory back pain on PM via Dr. Fraga. She is on chronic opiods and previously was treated with ESIs. She is offered a SCS but the MRI restrictions could be a major problem. I discussed this with Dr. Fraga. --Overall on the current regimen, she is much improved. Her switch from to MA has resolved the anorexia. Originally documented as Low back pain. OPID [place],[facility], [facility] [place] 789.06; ABD PAIN EPIGASTRIC 787.01; NAUS Active 03/14/2015 [place] Autoimmune hepatitis Resolved 03/16/2014 Problem 03/21/2018 [facility] Autoimmune hepatitis Resolved 03/16/2014 Problem 02/02/2018 KALYAND Wil[place],[facility], [facility] [place] Ulcerative colitis Resolved Problem 03/21/2018 [facility] Esophageal reflux Resolved Problem 03/21/2018 [facility] Herpes Resolved Problem 03/21/2018 [facility] Asthma Resolved Problem 03/21/2018 [facility] Neurocognitive deficits Active Problem 03/21/2018 [facility], KALYAND Wil[place] OP[facility] [place] Depression Resolved Problem 03/21/2018 [facility] Osteoporosis Resolved Problem 03/21/2018 [facility] Pneumonia<sup>7</sup> Resolved Problem 03/21/201809/2016 [facility] Sciatica Resolved Problem 03/21/2018 [facility] Encounter for competency evaluation Active Problem 03/21/2018 [facility], RIP [place], [facility] [place] Bursitis of left hip Active Problem 03/21/2018 [facility], [facility] [place] Ulcerative colitis Resolved Problem 02/02/2018 RIP [place], [place], [facility] [place] Esophageal reflux Resolved Problem 02/02/2018 RIP [place], [place], [facility] [place] Herpes Resolved Problem 02/02/2018 RIP [place],[facility], [facility] [place] Asthma Resolved Problem 02/02/2018 RIP [place]ore,[facility], [facility] [place] Depression Resolved Problem 02/02/2018 RIP [place],[facility], [facility] [place] Osteoporosis Resolved Problem 02/02/2018 RIP [place],[facility], [facility] [place] Pneumonia<sup>7</sup> Resolved Problem 02/02/201809/2016 RIP Dillon,[facility], [facility] [place] Sciatica Resolved Problem 02/02/2018 RIP [place],[facility], [facility] [place] Medication overuse headache Active Problem 09/26/2016 Surya [place] Lumbar back pain Active Problem 09/26/2016 Surya [place] Status migrainosus Active Problem 09/26/2016 Surya Ismael Lumbar back pain Active Problem 09/26/2016 Surya [place] Status migrainosus Active Problem 09/26/2016 Surya [place] Multiple sclerosis Active Problem 09/26/2016 Surya [place] Chronic migraine Active Problem 09/26/2016 Surya Ismael ABDMNAL PAIN EPIGASTRIC Active [facility] NAUSEA WITH VOMITING Active [facility] ELEV TRANSAMINASE/LDH Active [facility] IRRITABLE BOWEL SYNDROME Active [facility] ABNORMAL LOSS OF WEIGHT Active [facility] DIAPHRAGMATIC HERNIA Active [facility] UNIVRSL ULCERTVE COLITIS Active [facility] Medications Medication Details Route Status Patient Instructions Ordering Provider Order Date Source Tizanidine Hcl 4 Mg Tablet Daily Active Hanh 08/14/2018 [facility] valacyclovir 1000 MG Oral Tablet [Valtrex] 1 gm=1 tab, PO, Q24H, X 30 day, # 30 tab, 3 Refill(s), Pharmacy: [facility] [id number] Active 11/20/2017 [facility] 0.5 ML Sumatriptan 12 MG/ML Prefilled Syringe [Imitrex] See Instructions, INJECT 0.5ML DIRECTED, # 27 mL, 1 Refill(s), Pharmacy: [facility] [id number] Active 11/20/2017 [facility] 0.5 ML Sumatriptan 12 MG/ML Prefilled Syringe [Imitrex] See Instructions, # 27 mL, INJECT 0.5ML DIRECTED, Pharmacy: [facility] [id number] Inactive 11/20/2017 [facility] 10 ML ocrelizumab 30 MG/ML Injection [Ocrevus] 600 mg, IV, q6mo, # 2 inj, 0 Refill(s), other Active 10/16/2017 [facility] duloxetine 60 MG Enteric Coated Capsule [Cymbalta] 180 mg=3 cap, PO, Daily, 0 Refill(s) Active 10/16/2017 [facility] valacyclovir 1000 MG Oral Tablet [Valtrex] 1 gm=1 tab, PO, Q24H, X 30 day, # 30 tab, 1 Refill(s), Pharmacy: [facility] [id number] No Longer Active 10/02/2017 [facility] Cymbalta PO, Daily, 180mg, 0 Refill(s) Active 08/29/2017 [facility] Reclast Unknown Intravenous Active 5 MG/100ML Intravenous Once a year for osteoporosis Ismeal 08/28/2016 Surya [place] Valacyclovir HCl 1 tablet Orally Active 1 GM Orally every 24 hrs Ismael 07/15/2016 Surya [place] Medrol (Sonu) as directed Orally Active 4 mg Orally as directed [place] 11/30/2015 Surya [place] Talwin , 50 Mg as needed Active 10/22/2013 [facility] Celecoxib (Celebrex) 200 Mg Capsule, 200 Mg Oral Daily Active 03/30/2013 [facility] Armodafinil (Nuvigil) 150 Mg Tablet, Daily Active 02/04/2012 [facility] Amphet Asp/Amphet/D-Amphet (Adderall 10 Mg Tablet) 10 Mg Tablet, 10 Mg Oral Twice A Day Active 07/24/2011 [facility] Dicyclomine HCl 1 tablet Orally Active 20 MG Orally Three times a day [place] S[place]a [place] Abilify 1 tablet Orally Active 5 MG Orally Once a day Ismael Surya [place] Meclizine HCl 1 tablet as needed Orally Active 25 MG Orally as needed (prn) Ismael Surya [place] Testosterone inject Intramuscular Active 100 MG/ML Intramuscular Once every 3 months Ismael Surya Ismael Cymbalta 3 tablets Orally Active 60 MG Orally Once a day Ismael S[place]a [place] Tizanidine HCl 1 tablet Orally Active 2 MG Orally once every night [place] S[place]a [place] Valium 1 tablet as needed Orally Active 5 MG Orally Ismael S[place]a [place] Gilenya 1 capsule Orally Active 0.5 MG Orally Once a day Ismael Surya Ismael Linzess 1 capsule Orally Active 290 MCG Orally Once a day Ismael Surya Ismael Cyanocobalamin 1 ml Injection Active 1000 MCG/ML Injection Ismael Surya Ismael Morphine Sulfate 2 tablets Orally Active 15 MG Orally twice a day (bid) [place] Surya Ismael Adderall XR 1 capsule in the morning Orally Active 30 MG Orally Once a day [place] Surya [place] Imitrex as directed Injection Active 6 MG/0.5ML Injection as needed for headache [place] Surya Ismael Zofran 1 tablet Orally Active 8 MG Orally As needed [place] S[place]a [place] Valacyclovir HCl 1 tablet Orally Active 1 Orally Once a day Ismael S[place]a [place] Spiriva HandiHaler 1 capsule Inhalation Active 18 MCG Inhalation Once a day [place] S[place]a [place] Dexilant 1 capsule Orally Active 60 MG Orally Twice a day Ismael S[place]a [place] Asacol HD 2 tablets Orally Active 800 MG Orally Three times a day Ismael S[place]a [place] Hydromorphone HCl 1 tablet as needed Orally Active 2 MG Orally every 6 hrs Ismael Surya [place] Tramadol HCl 1 tablet as needed Orally No Longer Active 50 MG Orally every 4 hrs [place] Surya [place] Sumatriptan Succinate USE DIRECTED NEEDED FOR HEADACHE NA Active 6 [place] S[place]a [place] Testosterone inject Intramuscular Active 100 MG/ML Intramuscular Once every 3 months Ismael Surya Ismael Valacyclovir HCl Take 1 tablet by mouth every day NA Active 1 GM Ismael Surya [place] Calcium 1 tablet Orally Active Orally Once a day [place] Surya [place] Vitamin D 1 tablet Orally Active 1000 UNIT Orally Once a day [place] Surya [place] Sumatriptan Succinate USE DIRECTED NEEDED FOR HEADACHE NA Active 6 [place] Surya Hartum Fetzima 1 capsule Orally Active 120 MG Orally Once a day Ismaelmerlyn Hartum Probiotic 1 capsule Orally Active Orally Once a day [place] Guevara Asacol HD 3 tablets Orally Active 800 MG Orally Twice a day Ismaelmerlyn Guevara Amphet Asp/Amphet/D-Amphet (Adderall 20 Mg Tablet) 20 Mg Tablet D Active [facility] Aripiprazole (Abilify) 2 Mg Tablet Daily [facility] Dexlansoprazole (Dexilant) 60 Mg Cap. Daily [facility] Diazepam (Valium) 10 Mg Tablet Twice A Day [facility] Dicyclomine Hcl (Bentyl) 20 Mg Tablet Daily [facility] Duloxetine Hcl (Cymbalta) 30 Mg Capsule. Daily [facility] Duloxetine Hcl (Cymbalta) 60 Mg Capsule. Twice A Day [facility] Fingolimod Hcl (Gilenya) 0.5 Mg Capsule Daily [facility] Losartan Potassium (Cozaar) 50 Mg Tab Daily [facility] Metoprolol Succinate (Toprol Xl) 50 Mg Tab.sr.24h Daily [facility] Pentazocine Hcl/Naloxone Hcl (Pentazocine-Naloxone Tablet) 1 Each Tablet Q6prn [facility] Sumatriptan Succinate (Imitrex Inj) 6 Mg/0.5 Ml Inj [facility] Testosterone (Fortesta) 60 Gm Gel..forming fixer [facility] Valacyclovir Hcl (Valtrex) 1,000 Mg Tablet Once A Day [facility] Allergies, Adverse Reactions, Alerts Substance Category Reaction Severity Reaction type Status Date Reported Comments Source codeine<sup>1</sup> Assertion Drug allergy Active 03/24/2013 Data migrated from [employer] on 10/01/16. Originally documented as Codeine Phosphate. DONTA Bernalshore Codeine Phosphate Adverse Reaction Info Not Available Adverse Reaction Active 08/29/2016 Surya Guevara Demerol Adverse Reaction Info Not Available Adverse Reaction Active 08/29/2016 Surya Guevara meperidine<sup>2</sup> Assertion Drug allergy Active 08/29/2016 Data migrated from [facility] on 10/01/16. Originally documented as Demerol. RIP [place] meperidine HCl VOMITING Mild Allergy to Substance Active 08/14/2018 [facility] Codeine Unknown Allergy to Substance Active 08/14/2018 [facility] Immunizations Immunization Date Given Site Status Last Updated Comments Source Results Order Name Results Value Reference Range Date Interpretation Comments Source Blood leukocytes automated count (number/volume) 7.36 4.8 - 10.8 08/14/2018 [facility] Blood erythrocytes automated count (number/volume) 3.77 3.6 - 5.1 08/14/2018 [facility] Blood hemoglobin measurement (moles/volume) 11.4 12.0 - 16.0 08/14/2018 [facility] Automated blood hematocrit (volume fraction) 35.5 34.2 - 44.1 08/14/2018 [facility] Automated erythrocyte mean corpuscular volume 94.2 81 - 99 08/14/2018 [facility] Automated erythrocyte mean corpuscular hemoglobin (mass per erythrocyte) 30.2 28 - 32 08/14/2018 [facility] Automated erythrocyte mean corpuscular hemoglobin concentration measurement (mass/volume) 32.1 31 - 35 08/14/2018 [facility] RDW BldCo-Rto 14.4 11.7 - 14.4 08/14/2018 [facility] Automated blood platelet count (count/volume) 403 140 - 360 08/14/2018 [facility] Automated blood segmented neutrophil count as percentage of total leukocytes 74.0 38.7 - 80.0 08/14/2018 [facility] Automated blood lymphocyte count as percentage ot total leukocytes 10.5 18.0 - 39.1 08/14/2018 [facility] Automated blood monocyte count as percentage of total leukocytes 13.3 4.4 - 11.3 08/14/2018 [facility] Automated blood eosinophil count as percentage of total leukocytes 1.5 0.0 - 6.0 08/14/2018 [facility] Automated blood basophil count as percentage of total leukocytes 0.3 0.0 - 1.0 08/14/2018 [facility] IM GRANULOCYTES % 0.4 0.0 - 1.0 08/14/2018 [facility] Automated blood neutrophil count 5.5 2.1 - 6.9 08/14/2018 [facility] Blood lymphocytes count (number/volume) 0.8 1.0 - 3.2 08/14/2018 [facility] Blood monocytes automated count (number/volume) 1.0 0.2 - 0.8 08/14/2018 [facility] Automated blood eosinophil count 0.1 0.0 - 0.4 08/14/2018 [facility] Automated blood basophil count (count/volume) 0.0 0.0 - 0.1 08/14/2018 [facility] Absolute Immature Granulocyte (auto 0.03 0 - 0.1 08/14/2018 [facility] Serum or plasma sodium measurement (moles/volume) 135 136 - 145 08/14/2018 [facility] Serum or plasma potassium measurement (moles/volume) 4.4 3.5 - 5.1 08/14/2018 [facility] Serum or plasma chloride measurement (moles/volume) 103 98 - 107 08/14/2018 [facility] Serum or plasma carbon dioxide, total measurement (moles/volume) 25 22 - 29 08/14/2018 [facility] Serum or plasma anion gap 11.4 8 - 16 08/14/2018 [facility] Serum or plasma urea nitrogen measurement (mass/volume) 13 7 - 26 08/14/2018 [facility] Serum or plasma creatinine measurement (mass/volume) 0.93 0.57 - 1.11 08/14/2018 [facility] Serum or plasma urea nitrogen/creatinine mass ratio 14 6 - 25 08/14/2018 [facility] Estimated glomerular filtration rate (GFR) determination > 60 60 08/14/2018 [facility] Glucose measurement 93 74 - 118 08/14/2018 [facility] Serum or plasma calcium measurement (mass/volume) 9.9 8.4 - 10.2 08/14/2018 [facility] Serum or plasma total bilirubin measurement (mass/volume) 0.3 0.2 - 1.2 08/14/2018 [facility] Aspartate Amino Transf (AST/SGOT) 14 5 - 34 08/14/2018 [facility] Serum or plasma alanine aminotransferase measurement (enzymatic activity/volume) 7 0 - 55 08/14/2018 [facility] Serum or plasma protein measurement (mass/volume) 7.9 6.5 - 8.1 08/14/2018 [facility] Serum or plasma albumin measurement (mass/volume) 4.0 3.5 - 5.0 08/14/2018 [facility] Plasma globulin measurement (mass/volume) 3.9 2.3 - 3.5 08/14/2018 [facility] Serum or plasma albumin/globulin mass ratio 1.0 0.8 - 2.0 08/14/2018 [facility] Serum or plasma alkaline phosphatase measurement (enzymatic activity/volume) 74 40 - 150 08/14/2018 [facility] Serum or plasma lipase measurement (enzymatic activity/volume) 33 8 - 78 08/14/2018 [facility] Spine lumbar w/wo contrast MRI Spine lumbar [...] and mild facet hypertrophy. This results in [id number] right greater than left neural foraminal narrowing [...] Waldron MD 01/30/18 17:56 FINAL REPORT RIP [place] Hip wo contrast MRI Hip wo contrast [...] of the contralateral right hip on large [id number] imaging demonstrates no gross intra-articular abnormality. Other: [...] Louie Hollingsworth MD 01/30/18 17:41 FINAL REPORT RIP [place] Foot wo contrast MRI Foot wo contrast [...] Louie Hollingsworth MD 01/30/18 17:25 FINAL REPORT [facility]ep [place] Ext Lower Venous Doppler Unilat US Ext [...] Hussein Hassan MD 12/17/17 09:28 FINAL REPORT [facility] Bone Density DXA Dual Energy MA Bone Density DXA Dual Energy MA BONE DENSITY ASSESSMENT: 08/30/2017 CLINICAL DATA: Post menopausal. Age-Related Osteoporosis Without Current Pathological Fracture, Repeated Falls, Low Back Pain, Trochanteric Bursitis, Left Hip , Pain In Left Hip/M81.0, R29.6 , M54.5,M70.62 , M25.552 RISK FACTORS: race. COMPARISON: 06/29/2016 Right hip using a Hologic unit from [facility] with reported medium fracture risk, BMD of 0.683g/cm2, T-score of -2.10, and Z-score of - 1.30. 06/29/2016 Left hip using a Hologic unit from [facility] with reported high fracture risk, BMD of 0.617g/cm2, T-score of -2.70, and Z-score of -1.90. 06/29/2016 AP L1-L4 region of spine using a Hologic unit from [facility] with reported high fracture risk, BMD of [...] for fracture. This exam was interpreted at [id number] for ISMAEL Wan 15. Donnell Stapleton M.D., cm/flori:08/30/2017 11:36:06 Flight Engineer Inspector(s): Mima FUNK)(Robe), [facility] 08/30/2017 - - Read by: Sarath Reed MD Dictated Date/time: 08/30/17 11:36 Electronically Signed by: Sarath Reed MD 08/30/17 11:36 FINAL REPORT RIP [place] Hip bilat w pelvis and both lat hips DX Hip bilat w pelvis and both lat hips DX EXAM: XR BILATERAL HIP 2 VIEWS DATE: 08/21/2017 12:45 PM RETAIL GROCER INDICATION: - M81.0 Age-related osteoporosis without current [...] - This report was dictated by a A R Specialist/Fellow. I have personally reviewed the images as well as the Resident's interpretation and agree with the findings. Read by: Sanket Hardin MD Resident: Sanket Hardin MD Dictated Date/time: 08/21/17 13:51 Electronically Signed by: Can Aparicio MD 08/21/17 17:26 FINAL REPORT [facility] Spine lumbar 2 or 3 views DX Spine lumbar 2 or 3 views DX EXAM: XR LUMBAR SPINE 2 VIEWS DATE: 08/21/2017 12:46 PM RETAIL GROCER INDICATION: - M81.0 Age-related osteoporosis without current [...] - This report was dictated by a A R Specialist/Fellow. I have personally reviewed the images as well as the Resident's interpretation and agree with the findings. Read by: Sanket Hardin MD Resident: Sanket Hardin MD Dictated Date/time: 08/21/17 13:53 Electronically Signed by: Can Aparicio MD 08/21/17 17:26 FINAL REPORT [facility] Brain wo contrast MRI Brain wo contrast [...] change from previous study of 06/16/2016. SL: [id number] 03/21/2017 - - Read by: Dano Retana MD Dictated Date/time: 03/22/17 07:39 Electronically Signed by: Dano Retana MD 03/22/17 07:56 FINAL REPORT [facility] Ankle 3 views DX Ankle 3 views [...] Cheryl Olsen MD 02/22/17 13:07 FINAL REPORT [facility] Chest w contrast CT Chest w contrast CT EXAM: CT CHEST WITH CONTRAST DATE: 09/28/2016 11:11 AM RETAIL GROCER INDICATION: J98.4 Other disorders of lung COMPARISON: [...] Louie Alexandre MD 09/28/16 12:33 FINAL REPORT [facility] Chest 2 views DX Chest 2 views DX EXAM: XR CHEST 2VIEW DATE: 09/20/2016 10:44 AM RETAIL GROCER INDICATION: chest pain, cough, COMPARISON: None TECHNIQUE: [...] by: Wilmer Turner 09/20/16 14:[address] [facility] bilat w pelvis and both lat [...] Yelena Churchill MD 07/09/16 16:[address] [facility] Bone Density DXA Dual Energy MA Bone [...] fracture. Professional services are provided by the [facility]. This exam was dictated and interpreted by [id number] for ISMAEL Wan. Donnell Stapleton M.D., cm/flori:07/02/2016 11:47:49 Flight Engineer Inspector: Mima GRANT (R)), [facility] 06/29/2016 - - Read by: Sarath Stapleton III, MD Dictated Date/time: 07/02/16 11:47 Electronically Signed by: Sarath Stapleton III, MD 07/02/16 11:47 FINAL REPORT DONTA Al[facility] Digital Mammo Screening Alex MA Digital Mammo Screening Alex MA - DIGITAL MAMMO SCREENING ALEX MA BILATERAL DIGITAL SCREENING MAMMOGRAM WITH CAD: 06/29/2016 CLINICAL: Z12.39 Encounter For Other Screening For Malignant Neoplasm Of Breast. Current study was evaluated with a Computer Aided Detection (CAD) system. Comparison is made to exam dated: 11/27/2011 mammogram - [facility]. There are scattered fibroglandular densities in both breasts. There are benign intramammary nodes in both breasts. There is postsurgical change of the right breast. No significant masses, calcifications, or other findings are seen in either breast. IMPRESSION: BENIGN There is no mammographic evidence of malignancy. A 1 year screening mammogram is recommended. Professional services are provided by the [facility]. Selam Lisa M.D. rn/:07/02/2016 09:07:01 Flight Engineer Inspector: Balbina GARCIA(Stefan)(Robe), [facility] This exam was dictated and interpreted by [id number] for DONTA Joyce. letter sent: Bilateral Benign Mammogram BI-RADS: 2 Benign 06/29/2016 - - Read by: Selam Lisa MD Dictated Date/time: 07/02/16 09:07 Electronically Signed by: Selam Lisa MD 07/02/16 09:07 FINAL REPORT DONTA Al[place] Brain wo contrast MRI Brain wo contrast [...] Sigala MD 06/16/16 15:35 FINAL REPORT [facility] [place] CHEM PANEL A/G Ratio 0.8 0.7 - 1.6 03/16/2015 [facility] CHEM PANEL Globulin 4.1 g/dL 2.0 - 4.0 03/16/2015 [facility] [facility] CHE[facility] PANEL Bili Indirect null 0.0 - 1.0 03/16/2015 [facility] CHEM PANEL AST 50 unit/L 0 - 37 03/16/2015 [facility] CHEM PANEL Alk Phos 110 unit/L 39 - 136 03/16/2015 [facility] CHEM PANEL Bili Direct null 0.0 - 0.3 03/16/2015 [facility] CHEM PANEL Bili Total 0.4 mg/dL 0.2 - 1.3 03/16/2015 [facility] CHEM PANEL ALT 52 unit/L 0 - 65 03/16/2015 [facility] CHEM PANEL Total Protein 7.5 g/dL 6.4 - 8.4 03/16/2015 [facility] CHEM PANEL Albumin Lvl 3.4 g/dL 3.5 - 5.0 03/16/2015 [facility] HEMATOLOGY WBC 5.5 K/CMM 3.7 - 10.4 03/16/2015 [facility] HEMATOLOGY RBC 3.39 M/CMM 4.20 - 5.40 03/16/2015 [facility] HEMATOLOGY Hgb 11.4 g/dL 12.0 - 16.0 03/16/2015 [facility] HEMATOLOGY Hct 33.9 % 36.0 - 48.0 03/16/2015 [facility] RDW 15.2 % 11.5 - 14.5 03/16/2015 [facility] Platelet 293 K/CMM 133 - 450 03/16/2015 [facility] MCH 33.7 pg 27.0 - 31.0 03/16/2015 [facility] MCHC 33.7 g/dL 32.0 - 36.0 03/16/2015 [facility] MCV 99.9 fL 80.0 - 98.0 03/16/2015 [facility] MPV 8.4 fL 7.4 - 10.4 03/16/2015 [facility] Sed Rate 40 mm/h 0 - 20 03/16/2015 [facility] Monocytes 12.7 % 2.0 - 12.0 03/16/2015 [facility] Basophils 0.5 % 0.0 - 1.0 03/16/2015 [facility] Eosinophils 0.2 % 0.0 - 4.0 03/16/2015 [facility] Segs-Bands # 4.3 K/CMM 1.5 - 8.1 03/16/2015 [facility] Monocytes # 0.7 K/CMM 0.0 - 0.8 03/16/2015 [facility] Macrocyte 1+ *ABN* (03/16/15 9:22 AM) None Seen 03/16/2015 [facility] Lymphocytes # 0.4 K/CMM 1.0 - 5.5 03/16/2015 [facility] Segs 79.1 % 45.0 - 75.0 03/16/2015 [facility] Lymphocytes 7.5 % 20.0 - 40.0 03/16/2015 [facility] IMMUNOLOGY JOELLEN Negative (03/16/15 9:22 AM) Negative 03/16/2015 [facility] IMMUNOLOGY AMA Ab Scr Negative (03/16/15 9:22 AM) Negative 03/16/2015 [facility] IMMUNOLOGY C-REACTIVE PROTEIN 8.1 mg/L <=2.9 mg/L 03/16/2015 [facility] CHEM PANEL eGFR 83 mL/min/1.73m2 03/16/2015 [...] should be multiplied by the estimated BMI. [facility] CHEM PANEL POC Creatinine 0.8 mg/dL 0.5 - 1.4 03/16/2015 [facility] Abdomen/Pelvis w IV contrast CT Abdomen/Pelvis [...] Rodrigo Rai MD 03/16/15 11:22 FINAL REPORT [facility] Vital Signs Vital Sign Value Date Comments Source Weight 54.545 03/18/2018 [facility] BMI Calculated 18.83 03/18/2018 [facility] Height 170.18 cm 03/18/2018 [facility] Heart Rate 85 03/18/2018 [facility] Systolic (mm Hg) 104 03/18/2018 [facility] Diastolic (mm Hg) 68 03/18/2018 [facility] Height 170.18 cm 02/25/2018 [facility] Weight 50.364 02/25/2018 [facility] BMI Calculated 17.39 02/25/2018 [facility] Heart Rate 85 02/25/2018 [facility] Systolic (mm Hg) 125 02/25/2018 [facility] Diastolic (mm Hg) 89 02/25/2018 [facility] Weight 59.273 10/16/2017 [facility] BMI Calculated 20.47 10/16/2017 [facility] Height 170.18 cm 10/16/2017 [facility] Systolic (mm Hg) 143 10/16/2017 [facility] Diastolic (mm Hg) 99 10/16/2017 [facility] Heart Rate 84 10/16/2017 [facility] Weight 60.455 08/29/2017 [facility] Systolic (mm Hg) 135 08/29/2017 [facility] Diastolic (mm Hg) 91 08/29/2017 [facility] Heart Rate 67 08/29/2017 [facility] Height 170.18 cm 03/21/2017 [facility] BMI Calculated 19.62 03/21/2017 [facility] Weight 56.818 03/21/2017 [facility] Weight 116.6 08/29/2016 [facility] [place] Height 67 08/29/2016 [facility] Heart Rate 100 08/29/2016 [facility] [place] Diastolic (mm Hg) 91 08/29/2016 [facility] [place] Systolic (mm Hg) 132 08/29/2016 S[facility]a Ismael Weight 116.2 06/06/2016 S[facility]a Ismael Height 67 06/06/2016 [facility] [place] Heart Rate 91 06/06/2016 Surya Ismael Diastolic (mm Hg) 96 06/06/2016 [facility] [place] Systolic (mm Hg) 125 06/06/2016 [facility] [place] Weight 116.4 03/06/2016 Surya Ismael Height 67 03/06/2016 Surya Ismael Heart Rate 81 03/06/2016 [facility] [place] Diastolic (mm Hg) 97 03/06/2016 [facility] [place] Systolic (mm Hg) 149 03/06/2016 [facility] Weight 109.8 11/30/2015 S[facility]a [place] Height 67 11/30/2015 Surya Ismael Heart Rate 77 11/30/2015 Surya Ismael Diastolic (mm Hg) 87 11/30/2015 S[facility] [place] Systolic (mm Hg) 129 11/30/2015 Surya [place] Encounters Location Location Details Encounter Type Encounter Number Reason For Visit Attending Provider ADM Date DC Date Status Source Surya Guevara MD, PA 3 month follow up [id number] 11/18/2014 11/18/2014 S[facility]a [place] Surya Ismael, MD, PA 3 month follow up [id number] 11/18/2014 11/18/2014 Surya Guevara MD, [place] 3 month follow up [id number] 11/18/2014 11/18/2014 Surya Guevara MD, [place] 3 month follow up [id number] 11/18/2014 11/18/2014 Surya Guevara MD, [place] 3 month follow up [id number] 11/18/2014 11/18/2014 Surya Guevara MD, [place] 3 month follow up [id number] 11/18/2014 11/18/2014 Surya Guevara MD, [place] 3 month follow up [id number] 11/18/2014 11/18/2014 Surya Guevara MD, [place] 3 month follow up [id number] 11/18/2014 11/18/2014 Surya Guevara MD, [place] 3 month follow up [id number] 11/18/2014 11/18/2014 Surya Guevara MD, [place] 3 month follow up [id number] 11/18/2014 11/18/2014 Surya Guevara MD, [place] 3 month follow up [id number] 11/18/2014 11/18/2014 Surya Guevara MD, [place] 3 month follow up [id number] 11/18/2014 11/18/2014 Surya Guevara MD, [place] 3 month follow up [id number] 11/18/2014 11/18/2014 Surya Guevara MD, [place] 3 month follow up [id number] 11/18/2014 11/18/2014 Surya Guevara [facility] [id number] Liu Luo 12/20/2014 12/21/2014 [facility] Migraine [id number] 01/12/2015 01/12/2015 Surya Guevara [place], [place] Migraine [id number] 01/12/2015 01/12/2015 Surya Guevara [place], [place] Migraine [id number] 01/12/2015 01/12/2015 Surya Guevara [place], [place] Migraine [id number] 01/12/2015 01/12/2015 Surya Guevara MD, [place] Migraine [id number] 01/12/2015 01/12/2015 Surya Guevara [place], [place] Migraine [id number] 01/12/2015 01/12/2015 Surya Guevara [place] Migraine [id number] 01/12/2015 01/12/2015 Surya Guevara [place], [place] Migraine [id number] 01/12/2015 01/12/2015 Surya Guevara [place], [place] Migraine [id number] 01/12/2015 01/12/2015 Surya Guevar[place], [place] Migraine [id number] 01/12/2015 01/12/2015 Surya Guevar[place] Migraine [id number] 01/12/2015 01/12/2015 Surya Guevara MD, [place] Migraine [id number] 01/12/2015 01/12/2015 Surya Guevara MD, [place] Migraine [id number] 01/12/2015 01/12/2015 Surya Guevara MD, [place] Migraine [id number] 01/12/2015 01/12/2015 Surya Guevara MD, [place] Medrol rx request [id number] 01/27/2015 01/27/2015 Surya Guevara MD, [place] Medrol rx request [id number] 01/27/2015 01/27/2015 Surya Guevara MD, [place] Medrol rx request [id number] 01/27/2015 01/27/2015 Surya Guevara MD, [place] Medrol rx request [id number] 01/27/2015 01/27/2015 Surya Guevara MD, [place] Medrol rx request [id number] 01/27/2015 01/27/2015 Surya Guevara MD, [place] Medrol rx request [id number] 01/27/2015 01/27/2015 Surya Guevara MD, [place] Medrol rx request [id number] 01/27/2015 01/27/2015 Surya Guevara MD, [place] Medrol rx request [id number] 01/27/2015 01/27/2015 Surya Guevara MD, [place] Medrol rx request [id number] 01/27/2015 01/27/2015 Surya Guevara MD, [place] Medrol rx request [id number] 01/27/2015 01/27/2015 Surya Guevara MD, [place] Medrol rx request [id number] 01/27/2015 01/27/2015 Surya Guevara MD, [place] Medrol rx request [id number] 01/27/2015 01/27/2015 Surya Guevara MD, [place] Medrol rx request [id number] 01/27/2015 01/27/2015 Surya Guevara MD, [place] Medrol rx request [id number] 01/27/2015 01/27/2015 Surya Guevara MD, [place] 3 mo f/u [id number] 02/18/2015 02/18/2015 Surya Guevara MD, [place] 3 mo f/u [id number] 02/18/2015 02/18/2015 Surya Guevara MD, [place] 3 mo f/u [id number] 02/18/2015 02/18/2015 Surya Guevara MD, [place] 3 mo f/u [id number] 02/18/2015 02/18/2015 Surya Guevara MD, [place] 3 mo f/u [id number] 02/18/2015 02/18/2015 Surya Guevara MD, [place] 3 mo f/u [id number] 02/18/2015 02/18/2015 Surya Guevara MD, [place] 3 mo f/u [id number] 02/18/2015 02/18/2015 Surya Guevara MD, [place] 3 mo f/u [id number] 02/18/2015 02/18/2015 Surya Guevara MD, [place] 3 mo f/u [id number] 02/18/2015 02/18/2015 Surya Guevara MD, [place] 3 mo f/u [id number] 02/18/2015 02/18/2015 Surya Guevara MD, [place] 3 mo f/u [id number] 02/18/2015 02/18/2015 Surya Guevara MD, [place] 3 mo f/u [id number] 02/18/2015 02/18/2015 Surya Guevara MD, [place] 3 mo f/u [id number] 02/18/2015 02/18/2015 Surya Guevara MD, [place] 3 mo f/u [id number] 02/18/2015 02/18/2015 Surya Guevara MD, [place] Cycling migraine [id number] 03/07/2015 03/07/2015 Surya Guevara MD, [place] Cycling migraine [id number] 03/07/2015 03/07/2015 Surya Guevara MD, [place] Cycling migraine [id number] 03/07/2015 03/07/2015 Surya Gueavra MD, [place] Cycling migraine [id number] 03/07/2015 03/07/2015 Surya Guevara MD, [place] Cycling migraine [id number] 03/07/2015 03/07/2015 Surya Guevara MD, [place] Cycling migraine [id number] 03/07/2015 03/07/2015 Surya Guevara MD, [place] Cycling migraine [id number] 03/07/2015 03/07/2015 Surya Guevara MD, [place] Cycling migraine [id number] 03/07/2015 03/07/2015 Surya Guevara MD, [place] Cycling migraine [id number] 03/07/2015 03/07/2015 Surya Guevara MD, [place] Cycling migraine [id number] 03/07/2015 03/07/2015 Surya Guevara MD, [place] Cycling migraine [id number] 03/07/2015 03/07/2015 Surya Guevara MD, [place] Cycling migraine [id number] 03/07/2015 03/07/2015 Surya Guevara MD, [place] Cycling migraine [id number] 03/07/2015 03/07/2015 Surya Guevara MD, [place] Cycling migraine [id number] 03/07/2015 03/07/2015 Surya Guevara [facility] [id number] Efrain Robin 03/16/2015 03/17/2015 [facility] Surya Guevara MD, PA 3 mo F/U [id number] 05/19/2015 05/19/2015 Surya Guevara MD, [place] 3 mo F/U [id number] 05/19/2015 05/19/2015 Surya Guevara MD, [place] 3 mo F/U [id number] 05/19/2015 05/19/2015 Surya Guevara MD, [place] 3 mo F/U [id number] 05/19/2015 05/19/2015 Surya Guevara MD, [place] 3 mo F/U [id number] 05/19/2015 05/19/2015 Surya Guevara MD, [place] 3 mo F/U [id number] 05/19/2015 05/19/2015 Surya Guevara MD, [place] 3 mo F/U [id number] 05/19/2015 05/19/2015 Surya Guevara MD, [place] 3 mo F/U [id number] 05/19/2015 05/19/2015 Surya Guevara MD, [place] 3 mo F/U [id number] 05/19/2015 05/19/2015 Surya Guevara MD, [place] 3 mo F/U [id number] 05/19/2015 05/19/2015 Surya Guevara MD, [place] 3 mo F/U [id number] 05/19/2015 05/19/2015 Surya Guevara MD, [place] 3 mo F/U [id number] 05/19/2015 05/19/2015 Surya Guevara MD, [place] 3 mo F/U [id number] 05/19/2015 05/19/2015 Surya Guevara MD, [facility] 3 mo F/U [id number] 05/19/2015 05/19/2015 Surya Guevara MD, [place] Unknown [id number] 06/20/2015 06/20/2015 Surya Guevara MD, [place] Unknown [id number] 06/20/2015 06/20/2015 Surya Guevara MD, [place] Unknown [id number] 06/20/2015 06/20/2015 Surya Guevara MD, [place] Unknown [id number] 06/20/2015 06/20/2015 Surya Guevara MD, [place] Unknown [id number] 06/20/2015 06/20/2015 Surya Guevara MD, [place] Unknown [id number] 06/20/2015 06/20/2015 Surya Guevara MD, [place] Unknown [id number] 06/20/2015 06/20/2015 Surya Guevara MD, [place] Unknown [id number] 06/20/2015 06/20/2015 Surya Guevara MD, [place] Unknown [id number] 06/20/2015 06/20/2015 Surya Guevara MD, [place] Unknown [id number] 06/20/2015 06/20/2015 Surya Gue[facility] MD, [place] Unknown [id number] 06/20/2015 06/20/2015 S[facility]a Gue[facility] MD, [place] Unknown [id number] 06/20/2015 06/20/2015 Surya Gue[facility] MD, [place] Unknown [id number] 06/20/2015 06/20/2015 [facility] Unknown [id number] 06/20/2015 06/20/2015 Surya Guevar[facility] MD, [place] Imitrex [id number] 06/29/2015 06/29/2015 Surya Guevara MD, [place] Imitrex [id number] 06/29/2015 06/29/2015 Surya Guevara MD, [place] Imitrex [id number] 06/29/2015 06/29/2015 Surya Guevara MD, [place] Imitrex [id number] 06/29/2015 06/29/2015 Surya Guevara MD, [place] Imitrex [id number] 06/29/2015 06/29/2015 Surya Guevara MD, [place] Imitrex [id number] 06/29/2015 06/29/2015 Surya Guevara MD, [place] Imitrex [id number] 06/29/2015 06/29/2015 Surya Guevara MD, [place] Imitrex [id number] 06/29/2015 06/29/2015 Surya Guevara MD, GISELLE Imitrex [id number] 06/29/2015 06/29/2015 Surya Guevara MD, GISELLE Imitrex [id number] 06/29/2015 06/29/2015 Surya Guevara MD, [place] Imitrex [id number] 06/29/2015 06/29/2015 Surya Guevara MD, GISELLE Imitrex [id number] 06/29/2015 06/29/2015 Surya Guevara MD, GISELLE Imitrex [id number] 06/29/2015 06/29/2015 Surya Guevara MD, GISELLE Imitrex [id number] 06/29/2015 06/29/2015 Surya Guevara MD, GISELLE DESAI Req [id number] 07/20/2015 07/20/2015 Surya Guevara MD, GISELLE DESAI Req [id number] 07/20/2015 07/20/2015 Surya Guevara MD, GISELLE DESAI Req [id number] 07/20/2015 07/20/2015 Surya Guevara MD, GISELLE DESAI Req [id number] 07/20/2015 07/20/2015 Surya Guevara MD, GISELLE DESAI Req [id number] 07/20/2015 07/20/2015 Surya Guevara MD, GISELLE DESAI Req [id number] 07/20/2015 07/20/2015 Surya Guevara MD, GISELLE DESAI Req [id number] 07/20/2015 07/20/2015 Surya Guevara MD, GISELLE DESAI Req [id number] 07/20/2015 07/20/2015 Surya Guevara MD, GISELLE DESAI Req [id number] 07/20/2015 07/20/2015 Surya Guevara MD, GISELLE DESAI Req [id number] 07/20/2015 07/20/2015 Surya Guevara MD, GISELLE DESAI Req [id number] 07/20/2015 07/20/2015 Surya Guevara MD, GISELLE DESAI Req [id number] 07/20/2015 07/20/2015 Surya Guevara MD, GISELLE DESAI Req [id number] 07/20/2015 07/20/2015 Surya Guevara MD, GISELLE DESAI Req [id number] 07/20/2015 07/20/2015 Surya Guevara MD, GISELLE 3 month f/u [id number] 08/31/2015 08/31/2015 S[facility]a Gue[facility], [facility] 3 month f/u [id number] 08/31/2015 08/31/2015 Surya Gue[facility]a MD, [facility] 3 month f/u [id number] 08/31/2015 08/31/2015 Surya Guevara MD, [facility] 3 month f/u [id number] 08/31/2015 08/31/2015 Surya Guevara MD, PA 3 month f/u [id number] 08/31/2015 08/31/2015 Surya Guevara MD, PA 3 month f/u [id number] 08/31/2015 08/31/2015 Surya Guevara MD, PA 3 month f/u [id number] 08/31/2015 08/31/2015 Surya Guevara MD, PA 3 month f/u [id number] 08/31/2015 08/31/2015 Surya Guevara MD, PA 3 month f/u [id number] 08/31/2015 08/31/2015 Surya Guevara MD, PA 3 month f/u [id number] 08/31/2015 08/31/2015 Surya Guevara MD, PA 3 month f/u [id number] 08/31/2015 08/31/2015 Surya Guevara MD, PA 3 month f/u [id number] 08/31/2015 08/31/2015 Surya Guevara MD, PA 3 month f/u [id number] 08/31/2015 08/31/2015 Surya Guevara MD, PA 3 month f/u [id number] 08/31/2015 08/31/2015 Surya Guevara MD, GISELLE Leon Refill [id number] 09/26/2015 09/26/2015 Surya Guevara MD, GISELLE Leon Refill [id number] 09/26/2015 09/26/2015 Surya Guevara MD, GISELLE Leon Refill [id number] 09/26/2015 09/26/2015 Surya Guevara MD, GISELLE Leon Refill [id number] 09/26/2015 09/26/2015 Surya Guevara MD, GISELLE Leon Refill [id number] 09/26/2015 09/26/2015 Surya Guevara MD, GISELLE Leon Refill [id number] 09/26/2015 09/26/2015 Surya Guevara MD, GISELLE Leon Refill [id number] 09/26/2015 09/26/2015 Surya Gueavra MD, GISELLE Leon Refill [id number] 09/26/2015 09/26/2015 Surya Guevara MD, GISELLE Leon Refill [id number] 09/26/2015 09/26/2015 Surya Guevara MD, GISELLE Leon Refill [id number] 09/26/2015 09/26/2015 Surya Guevara MD, GISELLE Leon Refill [id number] 09/26/2015 09/26/2015 Surya Guevara MD, GISELLE Leon Refill [id number] 09/26/2015 09/26/2015 Surya Guevara MD, GISELLE Leon Refill [id number] 09/26/2015 09/26/2015 Surya Guevara MD, GISELLE Leon Refill [id number] 09/26/2015 09/26/2015 Surya Guevara MD, PA 3 month f/u [id number] 11/30/2015 11/30/2015 Surya Guevara MD, PA 3 month f/u [id number] 11/30/2015 11/30/2015 Surya Guevara MD, PA 3 month f/u [id number] 11/30/2015 11/30/2015 Surya Guevara MD, PA 3 month f/u [id number] 11/30/2015 11/30/2015 Surya Guevara MD, PA 3 month f/u [id number] 11/30/2015 11/30/2015 Surya Guevara MD, PA 3 month f/u [id number] 11/30/2015 11/30/2015 Surya Guevara MD, PA 3 month f/u [id number] 11/30/2015 11/30/2015 Surya Guevara MD, PA 3 month f/u [id number] 11/30/2015 11/30/2015 Surya Guevara MD, PA 3 month f/u [id number] 11/30/2015 11/30/2015 Surya Guevara MD, PA 3 month f/u [id number] 11/30/2015 11/30/2015 Surya Guevara MD, PA 3 month f/u [id number] 11/30/2015 11/30/2015 Surya Guevara MD, PA 3 month f/u [id number] 11/30/2015 11/30/2015 Surya Guevara MD, PA 3 month f/u [id number] 11/30/2015 11/30/2015 Surya Guevara MD, PA 3 month f/u [id number] 11/30/2015 11/30/2015 Surya Guevara MD, [place] Other [id number] 12/06/2015 12/06/2015 Surya Guevara MD, [place] Other [id number] 12/06/2015 12/06/2015 Surya Guevara MD, PA Other [id number] 12/06/2015 12/06/2015 Surya Guevara MD, [place] Other [id number] 12/06/2015 12/06/2015 Surya Guevara MD, PA Other [id number] 12/06/2015 12/06/2015 Surya Guevara MD, PA Other [id number] 12/06/2015 12/06/2015 Surya Guevara MD, [place] Other [id number] 12/06/2015 12/06/2015 Surya Guevara MD, PA Other [id number] 12/06/2015 12/06/2015 Suray Guevara MD, PA Other [id number] 12/06/2015 12/06/2015 Surya Guevara MD, PA Other [id number] 12/06/2015 12/06/2015 Surya Guevara MD, [place] Other [id number] 12/06/2015 12/06/2015 Surya Ismael Guevara MD, PA Other [id number] 12/06/2015 12/06/2015 Surya [place] Guevara MD, PA Other [id number] 12/06/2015 12/06/2015 Surya [place] Surya Guevara MD, GISELLE Zamarripa [id number] 12/19/2015 12/19/2015 Surya Guevara MD, GISELLE Zamarripa [id number] 12/19/2015 12/19/2015 Surya Guevara MD, GISELLE Zamarripa [id number] 12/19/2015 12/19/2015 Surya Ismael Guevara MD, GISELLE Zamarripa [id number] 12/19/2015 12/19/2015 Surya Ismael Guevara MD, GISELLE Zamarripa [id number] 12/19/2015 12/19/2015 Surya Ismael Guevara MD, GISELLE Zamarripa [id number] 12/19/2015 12/19/2015 Surya Ismael Guevara MD, GISELLE Zamarripa [id number] 12/19/2015 12/19/2015 Surya Guevara MD, GISELLE Zamarripa [id number] 12/19/2015 12/19/2015 Surya Guevara MD, GISELLE Zamarripa [id number]-[id number] 12/19/2015 12/19/2015 Surya Guevara MD, GISELLE Zamarripa [id number] 12/19/2015 12/19/2015 Surya Guevara MD, GISELLE Zamarripa [id number] 12/19/2015 12/19/2015 Surya Guevara MD, GISELLE Zamarripa [id number] 12/19/2015 12/19/2015 Surya Guevara MD, GISELLE Valacyclovir [id number] 01/17/2016 01/17/2016 Surya Guevara MD, GISELLE Valacyclovir [id number] 01/17/2016 01/17/2016 Surya Guevara MD, GISELLE Valacyclovir [id number] 01/17/2016 01/17/2016 Surya Guevara MD, GISELLE Valacyclovir [id number] 01/17/2016 01/17/2016 Surya Guevara MD, GISELLE Valacyclovir [id number] 01/17/2016 01/17/2016 Surya Guevara MD, GISELLE Valacyclovir [id number] 01/17/2016 01/17/2016 Surya Guevara MD, GISELLE Valacyclovir [id number] 01/17/2016 01/17/2016 Surya Guevara MD, [place] Valacyclovir [id number] 01/17/2016 01/17/2016 Surya Guevara MD, PA Valacyclovir [id number] 01/17/2016 01/17/2016 Surya Guevara MD, GISELLE Valacyclovir [id number] 01/17/2016 01/17/2016 Surya Guevara MD, [place] Valacyclovir [id number] 01/17/2016 01/17/2016 Surya Guevara MD, PA Migraine [id number] 01/24/2016 01/24/2016 Surya Guevara MD, PA Migraine [id number] 01/24/2016 01/24/2016 Surya Guevara MD, [place] Migraine [id number] 01/24/2016 01/24/2016 Surya Guevara MD, PA Migraine [id number] 01/24/2016 01/24/2016 Surya Guevara MD, PA Migraine [id number] 01/24/2016 01/24/2016 Surya Guevara MD, PA Migraine [id number] 01/24/2016 01/24/2016 Surya Guevara MD, [place] Migraine [id number] 01/24/2016 01/24/2016 Surya Guevara MD, [place] Migraine [id number] 01/24/2016 01/24/2016 Surya Guevara MD, PA Migraine [id number] 01/24/2016 01/24/2016 Surya Guevara MD, PA Migraine [id number] 01/24/2016 01/24/2016 Surya Guevara MD, PA Other [id number] 01/30/2016 01/30/2016 Surya Guevara MD, PA Other [id number] 01/30/2016 01/30/2016 Surya Guevara MD, PA Other [id number] 01/30/2016 01/30/2016 Surya Guevara MD, PA Other [id number] 01/30/2016 01/30/2016 Surya Guevara MD, PA Other [id number] 01/30/2016 01/30/2016 Surya Guevara MD, PA Other [id number] 01/30/2016 01/30/2016 Surya Guevara MD, PA Other [id number] 01/30/2016 01/30/2016 Surya Guevara MD, PA Other [id number] 01/30/2016 01/30/2016 Surya Guevara MD, PA Other [id number] 01/30/2016 01/30/2016 Surya Guevara [facility] [id number] SURYA ISMAEL 03/06/2016 Active [facility] Michael Guevara MD, PA 3 month f/u [id number] 03/06/2016 03/06/2016 Surya Guevara MD, PA 3 month f/u [id number] 03/06/2016 03/06/2016 Surya Guevara MD, PA 3 month f/u [id number] 03/06/2016 03/06/2016 Surya Guevara MD, PA 3 month f/u [id number] 03/06/2016 03/06/2016 Surya Guevara MD, PA 3 month f/u [id number] 03/06/2016 03/06/2016 Surya Guevara MD, PA 3 month f/u [id number] 03/06/2016 03/06/2016 Surya Guevara MD, PA 3 month f/u [id number] 03/06/2016 03/06/2016 Surya Guevara MD, PA 3 month f/u [id number] 03/06/2016 03/06/2016 Surya Guevara MD, [place] Brand/Generic Sumatriptan [id number] 05/15/2016 05/15/2016 Surya Guevara MD, PA Brand/Generic Sumatriptan [id number] 05/15/2016 05/15/2016 Surya Guevara MD, PA Brand/Generic Sumatriptan [id number] 05/15/2016 05/15/2016 Surya Guevara MD, PA Brand/Generic Sumatriptan [id number] 05/15/2016 05/15/2016 Surya Guevara MD, PA Brand/Generic Sumatriptan [id number] 05/15/2016 05/15/2016 Surya Guevara MD, PA Brand/Generic Sumatriptan [id number] 05/15/2016 05/15/2016 Surya Guevara MD, PA Brand/Generic Sumatriptan [id number] 05/15/2016 05/15/2016 Surya Guevara MD, PA Migraine [id number] 06/05/2016 06/05/2016 Surya Guevara MD, PA Migraine [id number] 06/05/2016 06/05/2016 Surya Guevara MD, PA Migraine [id number] 06/05/2016 06/05/2016 Surya Guevara MD, [place] Migraine [id number] 06/05/2016 06/05/2016 Surya Guevara MD, PA [facility] [id number] 06/05/2016 06/05/2016 Surya Guevara MD, PA [facility] [id number] 06/05/2016 06/05/2016 Surya Guevara [facility] [id number] SURYA GUEVARA 06/06/2016 Active [facility] Michael Guevara MD, PA 3 month f/u [id number] 06/06/2016 06/06/2016 Surya Guevara MD, PA 3 month f/u [id number] 06/06/2016 06/06/2016 Surya Guevara MD, PA 3 month f/u [id number] 06/06/2016 06/06/2016 Surya Guevara MD, PA 3 month f/u [id number] 06/06/2016 06/06/2016 Surya Guevara MD, PA 3 month f/u [id number] 06/06/2016 06/06/2016 Surya Guevara MD, [place] Dr. Owens [id number] 06/13/2016 06/13/2016 Surya Guevara MD, [place] Dr. Owens [id number] 06/13/2016 06/13/2016 Surya Guevara MD, [place] Dr. Owens [id number] 06/13/2016 06/13/2016 Surya Guevara MD, [place] Dr. Owens [id number] 06/13/2016 06/13/2016 Surya Guevara [facility] [place] [facility] [id number] Surya Guevara 06/16/2016 06/17/2016 [facility] [place] [facility] [place] [facility] [id number] Liu Luo 06/29/2016 06/30/2016 MH [facility] [place] [facility] - [place] [facility] [id number] Liu Luo 07/09/2016 07/10/2016 [facility] [place] Outpatient [id number] SURYA GUEVARA 08/29/2016 Active [facility] Michael Guevara MD, PA 3 month f/u [id number] 08/29/2016 08/29/2016 Surya Guevara MD, PA 3 month f/u [id number] 08/29/2016 08/29/2016 Surya Guevara MD, PA 3 month f/u [id number] 08/29/2016 08/29/2016 Surya Guevara MD, PA Migraine [id number] 09/04/2016 09/04/2016 Surya Guevara MD, [place] Migraine [id number] 09/04/2016 09/04/2016 Surya Guevara [facility] [place] [facility] [id number] Liu Luo 09/20/2016 09/21/2016 DONTA Guevara MD, PA [facility] [id number] 09/25/2016 09/25/2016 [facility] Outpatient [facility] [place] [facility] [id number] Liu Valerio 09/28/2016 09/29/2016 MH [facility] [place] Outpatient [id number] SURYA ISMAEL 11/29/2016 Active [facility] Outpatient [facility] [place] [facility] [id number] Keturah Elena 02/22/2017 02/23/2017 MH [facility] [place] Outpatient [id number] SURYA ISMAEL 03/07/2017 Active [facility] Outpatient [id number] SURYA ISMAEL 03/21/2017 Active [facility] Outpatient [id number] Surya [place] 03/21/2017 03/22/2017 [facility] Outpatient [id number] [place] ISMAEL 04/10/2017 [facility] Outpatient [facility] [place] [facility] [id number] [facility] 08/21/2017 08/22/2017 MH [facility] [place] MNA Neurology [facility] Phone Message [id number] 08/23/2017 08/25/2017 [facility] [id number] [facility] 08/29/2017 [facility] [id number] Assaria [place] 08/29/2017 08/30/2017 [facility] [place] [facility] [id number] [facility] 08/30/2017 08/31/2017 MH [facility] [place] [facility] Neurosurgery [facility] Phone Message [id number] 09/19/2017 09/21/2017 [facility] Phone Message [id number] 09/27/2017 09/29/2017 [facility] Neurology [facility] Phone Message [id number] 10/02/2017 10/04/2017 [facility] Outpatient [id number] [place] 10/09/2017 [facility] Phone Message [id number] 10/15/2017 10/17/2017 [facility] Outpatient [id number] [place] 10/16/2017 [facility] Outpatient [id number] [facility] 10/16/2017 10/17/2017 [facility] Neurology [facility] Phone Message [id number] 10/18/2017 10/20/2017 [facility] Neurology [facility] Phone Message [id number] 11/19/2017 11/21/2017 [facility] Neurology [facility] Phone Message [id number] 11/20/2017 11/22/2017 [facility] Neurology [facility] Phone Message [id number] 11/22/2017 11/24/2017 [facility] Neurology [facility] Phone Message [id number] 01/16/2018 01/18/2018 [facility] [place] [facility] [id number] Liu Luo 01/30/2018 01/31/2018 [facility] [place] [facility] Neurology [facility] Phone Message [id number] 02/05/2018 02/07/2018 [facility] Outpatient [id number] SURYA ISMAEL 02/25/2018 Active [facility] MNA Neurology [facility] Outpatient [id number] Assaria Ismael 02/25/2018 02/26/2018 [facility] Neurology [facility] Phone Message [id number] 02/26/2018 02/28/2018 [facility] Outpatient [id number] [place] [place] [facility] 03/18/2018 Active [facility] [place] [facility] [id number] Liu Luo 03/18/2018 03/19/2018 [facility] Outpatient [id number] SURYA ISMEAL 04/09/2018 Active [facility] Outpatient [id number] [facility] [place] 04/15/2018 Active [facility] Outpatient [id number] SURYA ISMAEL 04/22/2018 Active [facility] Outpatient [id number] SURYA ISMAEL 07/02/2018 Active [facility] Outpatient [id number] SURYA ISMAEL 08/13/2018 Active [facility] Departed Emergency Room [id number] LUIS AIKEN MD 08/14/2018 08/14/2018 [facility] Procedures Procedure Code Date Perfomer Comments Source Computed tomography of brain without radiopaque contrast [id number] 08/14/2018 HANH [facility] Computed tomography of cervical spine without contrast [id number] 08/14/2018 HANH RAMIREZ [facility] Laminectomy<sup>1</sup> [id number] 09/16/1998 back [facility] [place] Laminectomy<sup>1</sup> [id number] 09/16/1998 [facility] Laminectomy<sup>1</sup> [id number] 09/16/1998 back [facility] Laminectomy<sup>1</sup> [id number] 09/16/1998 back [facility] [place] Caesarean section [id number] 06/16/1986 [facility] [place] Caesarean section [id number] 06/16/1986 [facility] Caesarean section [id number] 06/16/1986 [place] Caesarean section [id number] 06/16/1986 [facility] [place] Appendectomy [id number] 09/16/1979 [facility] [place] Appendectomy [id number] 09/16/1979 [facility] Appendectomy [id number] 09/16/1979 [facility] Appendectomy [id number] 09/16/1979 [facility] [place] Hysterectomy [id number] [facility] [place] Hysterectomy [id number] [facility] Hysterectomy [id number] [place] Hyste[facility] [id number] [facility] [place]
--- OUTSIDE RECORDS SUMMARY | 2018-10-22 10:17 | XMS REPORT ---
Author Author [facility] Address Unknown Phone Unavailable Care Team Providers Care Help Desk Coordinator Name Role Phone [place] AIKEN Unavailable Unavailable Problems This patient has no known problems. Allergies, Adverse Reactions, Alerts This patient has no known allergies or adverse reactions. Medications This patient has no known medications. Encounters Start Date/Time End Date/Time Encounter Type Admission Type Attending [facility] Care Facility Care Department Encounter ID 2018-04-14 00:00:00 2018-04-15 00:00:00 Outpatient [facility] [id number] Results Test Description Test Time Test Comments Text Results Atomic Results Result Comments CT CERVICAL SPINE WO 2018-08-14 10:12:00 [place] [address] Patient Name: YUMIKO RAMESH MR #: [id number] : 1960 Age/Sex: 58/F Req #: [id number] Adm Physician: Ordered by: LUIS AIKEN MD Report #: [id number] Location: ER Room/Bed: Procedure: [id number] CT/CT CERVICAL SPINE WO Exam Date: 08/14/18 Exam Time: 929 REPORT STATUS: Signed CT CERVICAL SPINE WO HISTORY: Fall COMPARIS ON: Concurrent head CT TECHNIQUE: CT of the cervical spine without contrast. Sagittal and coronal reformations were created. One or more of the following dose reduction techniques were used: Automated exposure control, adjustment of the mA and/or kV according to patient size, and/or utilization of iterative reconstruction technique. Streak artifacts obscure some details. FINDINGS: ACDF changes at C5-C6 are present. Cervical lordosis is straightened. There is no scoliosis or subluxation. No definite acute fracture, compression deformity, or destructive osseous lesions are seen. The craniocervical junction is intact. No gross spinal canal masses are seen. The paravertebral and paraspinal soft tissues are unremarkable. There are mild spondylotic changes above the fusion level. Mild atlantoaxial arthrosis is present as well. Mild bilateral carotid bulb calcifications are present. IMPRESSION: 1. No acute osseous abnormalities. 2. ACDF changes at C5-C6. 3. Mild spondylosis above the fusion level. Signed by: Dr. Dionisio Garland M.D. on 08/14/2018 10:16 AM Dictated By: DIONISIO GARLAND MD 1016 Transcribed By: RAMYA on 08/14/18 1016 COPY TO: LUIS AIKEN MD CT BRAIN WO 2018-08-14 10:07:00 [place] [address] Patient Name: YUMIKO RAMESH MR #: [id number] : 1960 Age/Sex: 58/F Req #: [id number] Adm Physician: Ordered by: LUIS AIKEN MD Report #: [id number] Location: ER Room/Bed: Procedure: [id number] CT/CT BRAIN WO Exam Date: 08/14/18 Exam Time: 0930 REPORT STATUS: Signed CT BRAIN WO HISTORY: Fall; history of MS COMPARISON: None. TECHNIQUE: Noncontrast axial scans were obtained from skull base to the vertex. Coronal and sagittal reconstructions obtained from the axial data. One or more of the following dose reduction techniques were used: Automated exposure control, adjustment of the mA and/or kV according to patient size, and/or utilization of iterative reconstruction technique. DISCUSSION: Scalp/Skull: Unremarkable. Brain sulci: Mildly prominent. Ventricles: Compensatory dilatation. Extra-axial spaces: No masses or fluid collections. Carotid siphon calcifications are present. Parenchyma: Mild periventricular white matter hypodensities may be due to prior demyelination and/or chronic microvascular ischemic change. Otherwise, no masses, hemorrhage, or large vascular territory acute infarct. Dural sinuses: No abnormal densities. Sellar/Suprasellar region: Intact. Skull base: Intact. Incidental findings: There is mild right posterior ethmoid air cell mucosal thickening. IMPRESSION: 1. No acute intracranial abnormalities. 2. Mild periventricular white matter hypodensities may be due to prior demyelination and/or chronic microvascular ischemic change. 3. Mild generalized cerebral volume loss. Signed by: Dr. Dionisio Garland M.D. on 08/14/2018 10:12 AM Dictated By: DIONISIO GARLAND MD 1012 Transcribed By: RAMYA on 08/14/18 1012 COPY TO: LUIS AIKEN MD
[2018-10-22 13:05] VITALS: BP 137/81
== END | disposition home or self-care (01) ==
LOC: OR 10:12
PROVIDERS: ATTEND Internal Medicine Gastroenterology
DX: K29.70 Gastritis, unspecified, without bleeding (principal); K44.9 Diaphragmatic hernia without obstruction or gangrene; K21.9 Gastro-esophageal reflux disease without esophagitis; G35 Multiple sclerosis; F03.90 Unspecified dementia, unspecified severity, without behavioral disturbance, psychotic disturbance, mood disturbance, and anxiety; J44.9 Chronic obstructive pulmonary disease, unspecified; F41.9 Anxiety disorder, unspecified; I10 Essential (primary) hypertension; F17.200 Nicotine dependence, unspecified, uncomplicated; Z88.5 Allergy status to narcotic agent; Z88.2 Allergy status to sulfonamides
CPT/HCPCS: 36415; 43239; 80053; 80076; 85025; 85610; 85730; 93005; J2001; J2704

== ENCOUNTER 2019-01-22 05:30 | Emergency (ER) | payer MEDICARE ==
[~2019-01-22] VITALS: Ht 170.2 cm; Wt 62.6 kg
[~2019-01-22 05:30] MED LIST changes: -LIDOCAINE HCL 2% LOCAL INJ 5 ML SDV VIAL INJ ONE; -PROPOFOL IV EMULSION 10 MG/ML 20 ML VIAL ONE
--- NOTE | 2019-01-22 06:26 | Diagnostic Imaging Report ---
Exam: Right hip 2 views History: Pain, fall Comparison: None. Findings: No fracture or malalignment. Joint spaces preserved. No abnormal soft tissue calcification or soft tissue defect. Impression: No acute osseous abnormality Signed by: Dr. Jean-Pierre Mckenzie M.D. on 01/22/2019 6:23 AM
--- NOTE | 2019-01-22 06:27 | Diagnostic Imaging Report ---
Exam: Right knee 2 views History: Pain, fall Comparison: None. Findings: No fracture or malalignment. Joint spaces preserved. No abnormal soft tissue calcification or soft tissue defect. Impression: No acute osseous abnormality Signed by: Dr. Jean-Pierre Mckenzie M.D. on 01/22/2019 6:24 AM
--- NOTE | 2019-01-22 06:29 | Diagnostic Imaging Report ---
Exam: Right ankle 3 and foot 3 views History: Pain, fall Comparison: None. Findings: Punctate lateral talar process avulsion. Joint spaces preserved. No abnormal soft tissue calcification or soft tissue defect. Impression: Punctate lateral talar process avulsion Signed by: Dr. Jean-Pierre Mckenzie M.D. on 01/22/2019 6:26 AM
[2019-01-22 06:44] VITALS: BP 112/92
== END 2019-01-22 06:55 | disposition home or self-care (01) ==
LOC: ER 05:30
DX: S82.891A Other fracture of right lower leg, initial encounter for closed fracture (principal); M25.551 Pain in right hip; S80.01XA Contusion of right knee, initial encounter; S80.211A Abrasion, right knee, initial encounter; S90.811A Abrasion, right foot, initial encounter; W01.0XXA Fall on same level from slipping, tripping and stumbling without subsequent striking against object, initial encounter; Y93.01 Activity, walking, marching and hiking; Y92.008 Other place in unspecified non-institutional (private) residence as the place of occurrence of the external cause; G35 Multiple sclerosis; Z87.19 Personal history of other diseases of the digestive system
CPT/HCPCS: 99282